=== PATIENT | male | born 1950 | race Caucasian/White ===

== ENCOUNTER → 2019-01-22 08:51 | Outpatient (CLI) | payer MEDICARE, SELFPAY ==
--- NOTE | 2019-01-22 | CI_ITS ---
Cerebrovascular Exam Indications: 785.9 Bruit. IMPRESSIONS 1. Study suggests 20-49% stenosis involving the right internal carotid artery. 2. Study suggests less than 20% stenosis involving the left internal carotid artery. History: A bruit of the right carotid artery. Risk factors: Hypertension. Diabetes mellitus. Hyperlipidemia. Carotid duplex study. Complete study and Doppler flow study including spectral analysis, color and mcconnell scale imaging. Location: Vascular laboratory. Patient status: Outpatient. Tables: Arterial flow: + +--------+--------+ Location V sys V ed + +--------+--------+ Right CCA - proximal 119cm/s 22.8cm/s + +--------+--------+ Right CCA - distal 87.3cm/s 25.8cm/s + +--------+--------+ Right ECA 101cm/s -------- + +--------+--------+ Right ICA - proximal 66cm/s 19.5cm/s + +--------+--------+ Right ICA - mid 101cm/s 35.6cm/s + +--------+--------+ Right ICA - distal 97cm/s 30.6cm/s + +--------+--------+ Right vertebral 72.9cm/s -------- + +--------+--------+ Left CCA - proximal 112cm/s 23cm/s + +--------+--------+ Left CCA - distal 97.8cm/s 25.1cm/s + +--------+--------+ Left ECA 110cm/s -------- + +--------+--------+ Left ICA - proximal 83.6cm/s 21.4cm/s + +--------+--------+ Left ICA - mid 118cm/s 34.6cm/s + +--------+--------+ Left ICA - distal 89.4cm/s 25.8cm/s + +--------+--------+ Left vertebral 59.4cm/s -------- + +--------+--------+ Velocity ratios: + + + + + + Right, V sys Right, V ed Left, V sys Left, V ed + + + + + + Max ICA/dist CCA 1.16 1.38 1.21 1.38 + + + + + + (Report amended ) Electronically signed by: Luis Olivier [id number]
== END ==
PROVIDERS: PCP Family Medicine; Visit Provider Family Medicine
DX: R09.89 Other specified symptoms and signs involving the circulatory and respiratory systems (principal)
CPT/HCPCS: 93880

== ENCOUNTER 2020-06-06 21:17 | Inpatient (IN) | payer MEDICARE, SELFPAY ==
[2020-06-06] VITALS (7 sets, daily range): BP systolic 115–139; BP diastolic 62–82; PULSE 76–94; RESP 16–24; TEMP 37.7–38; O2SAT 83–96; BMI 25.8; BMI 56.9; BMI 27.6
--- NOTE | 2020-06-06 21:23 | XR_ITS ---
PROCEDURE: XR CHEST PORTABLE CLINICAL HISTORY: SOA COMPARISON: No exams were available for comparison FINDINGS: The cardiomediastinal silhouette and pulmonary vascularity are within normal limits. Patchy ground-glass density noted in the right midlung and right lower lobe and left lower lobe consistent with pneumonia. No effusions. No acute bony abnormalities. IMPRESSION: Patchy bilateral ground-glass opacification consistent with pneumonia. Consider atypical pneumonia, viral pneumonia/Covid 19 pneumonia Dictated by: Luis Olivier MD 06/07/2020 07:40 Luis Olivier MD in [place] 06/07/2020 07:40
--- NOTE | 2020-06-06 21:25 | HMH.EDGENADL ---
ED Disposition Clinical Impression: COVID-19 virus IgG antibody detected, OLIVIER (acute kidney injury) Pneumonia Qualifiers: Pneumonia type: due to unspecified organism Laterality: unspecified laterality Lung location: unspecified part of lung Qualified Code(s): J18.9 - Pneumonia, unspecified organism Sepsis Qualifiers: Sepsis type: sepsis due to unspecified organism Sepsis acute organ dysfunction status: with acute organ dysfunction Severe sepsis acute organ dysfunction type: acute renal failure Acute renal failure type: unspecified Severe sepsis shock status: without septic shock Qualified Code(s): A41.9 - Sepsis, unspecified organism; R65.20 - Severe sepsis without septic shock; N17.9 - Acute kidney failure, unspecified Disposition: Admitted As Inpatient Condition on Discharge: Serious Referrals: Julien Taylor MD [Primary Care Provider] - Time of Disposition: 22:56 - Critical Care Critical Care Time: Yes Attestation: On 06/06/20, the high probability of a clinically significant, sudden or life threatening deterioration of the following system(s) required my full and direct attention, intervention and personal management. The time I documented below is in addition to time spent performing reported procedures but includes the following listed in this critical care notation. Total Critical Care Time: 30 Vital system(s) involved:: Respiratory Failure My critical care processes included: Assessment & monitoring of V/S, Initial and Re-exams, Data Review/Interpretation, Medication Orders and management, Documentation Medical Decision Making - Medical Records Medical records reviewed: Yes: I reviewed the patient's medical records. MR Comment: 69 yo Male with a history of insulin-dependent diabetes presents the emergency department stating that he has been weak and has not been eating well over the last 3 days. He denies any symptoms or complaints before this. However, on arrival to the emergency department he is hypoxic on room air with oxygen sats mid 80s. He is mildly tachypneic and appears very comfortable. He is also febrile, otherwise hemodynamically stable. Given his oxygen saturation, pneumonia considered. Will get labs and chest x-ray and reassess. At this time he is on a nonrebreather at 100%, sats are 90-93 on my assessment. On reassessment, patient remains stable. IgG and IgM test for COVID are positive, given his clinical picture and relative low lymphocytes on labs, this is likely coronavirus 19. He also has acute renal failure with high creatinine and BUN, and he denies any history of renal disease. He has been given a bolus of normal saline, ceftriaxone, 10 of IV dexamethasone. Do not want to give him too much fluid, but will start a low rate given his renal injury. Spoke to the physician and he will be admitted to the COVID unit for further evaluation and treatment. - Yevgeniy Inquiry Pt receiving controlled substance: No Vital Signs: 06/06/20 21:23 06/06/20 21:30 06/06/20 22:18 Temperature 100.4 F H Temperature Source Oral Pulse Rate [Right Brachial] 94 H 85 84 Respiratory Rate 16 18 22 Blood Pressure [Right Arm] 134/72 133/82 139/76 Blood Pressure Mean [Right Arm] 92 99 97 Blood Pressure Source [Right Arm] Automatic Cuff Automatic Cuff Automatic Cuff Blood Pressure Position [Right Arm] Supine Supine Supine 02 Sat by Pulse Oximetry 83 L 95 96 Oxygen Delivery Method Room Air Non-Rebreather Non-Rebreather Oxygen Flow Rate (LPM) 15 10 06/06/20 22:30 Temperature Temperature Source Pulse Rate [Right Brachial] 78 Respiratory Rate 24 Blood Pressure [Right Arm] 133/73 Blood Pressure Mean [Right Arm] 93 Blood Pressure Source [Right Arm] Automatic Cuff Blood Pressure Position [Right Arm] Supine 02 Sat by Pulse Oximetry 95 Oxygen Delivery Method Non-Rebreather Oxygen Flow Rate (LPM) 15 - Lab Data Lab Results 06/06/20 21:23: WBC 7.3, RBC 4.35 L, Hgb 12.4 L, Hct 33.8 L, MCV 77.8 L, MCH 28.6, MCHC 3
[2020-06-06 21:34] LABS: Basophils % 0.2 % (0.1-2.0); Hematocrit 33.8 % (42.0-52.0); Hemoglobin 12.4 g/dL (14.1-18.0); Lymphocytes # 0.3 K/mm3 (0.7-4.5); Lymphocytes % 4.7 % (10-50); Mean Corpuscular HGB Conc 36.8 g/dL (31.8-35.4); Mean Corpuscular Hemoglobin 28.6 pg (27.0-31.2); Mean Corpuscular Volume 77.8 fl (80-94); Mean Platelet Volume 7.7 fl (7.4-10.4); Monocytes # 0.2 K/mm3 (0.1-1.0); Monocytes % 3.1 % (1.7-9.3); Neutrophils # 6.7 K/mm3 (1.8-7.8); Neutrophils % 91.9 % (37.0-80.0); Platelet Count 230 K/mm3 (142-424); Red Blood Count 4.35 M/mm3 (4.60-6.20); Red Cell Distribution Width 13.7 % (11.5-17.5); White Blood Count 7.3 K/mm3 (4.8-10.8)
[2020-06-06 21:37] LABS: MANUAL DIFFERENTIAL MANUAL DIFFERENTIAL (MANUAL DIFF)
[2020-06-06 21:37] LABS: ABG HCO3 13.4 mmhg (22.0-26.0); ABG Oxygen Saturation 91 % (90-100); ABG PCO2 21.1 mmhg (35.0-45.0); ABG PH 7.42 mmol/L (7.35-7.45); ABG TCO2 14.1 mmhg (23-27)
[2020-06-06 21:38] LABS: Allen's Test Y; Oxygen 100 %; Source R/R
--- NOTE | 2020-06-06 21:42 | PC.NURSE ---
family report vomiting and diarrhea
[2020-06-06 21:49] LABS: Acetone, Serum (Rapid) None Detected (None Detect)
[2020-06-06 21:50] LABS: Alanine Aminotransferase 20 U/L (12-78); Albumin/Globulin Ratio 1.1 (1.1-1.8); Alkaline Phosphatase 59 U/L (38-126); Anion Gap 20.4 mEq/L (5-15); Aspartate Amino Transferase 51 U/L (17-59); Calcium 8.6 mg/dl (8.4-10.2); Carbon Dioxide 18 mmol/L (22.0-30.0); Chloride 90 mmol/L (98-107); Creatinine Clearance Estimated 19 mL/min (50-200); Estimated Glomerular Filt Rate 19 ml/min (>60); GFR (African American) 23 ML/MIN (>60); Globulin 3.5 g/dL (1.3-3.2); Glucose 126 mg/dl (74-100); Lactic Acid 1.2 mmol/L (0.7-2.1); Potassium 4.4 mmoL/L (3.5-5.1); Sodium 124 mmol/L (136-145); Total Protein,Serum 7.5 g/dl (6.3-8.2)
[2020-06-06 21:59] LABS: Lymphocytes % 3 % (10-50); Microcytosis 1+; Monocytes % 2 % (2-9); Neutrophils % 89 % (42-76); Platelet Estimate Normal; Total Cells Counted 100
[2020-06-06 22:03] LABS: Coronavirus 19 IgG Antibody Positive (Negative)
[2020-06-06 22:04] LABS: Coronavirus 19 IgM Antibody Positive (Negative)
[2020-06-06 22:08] LABS: Blood Urea Nitrogen 87 mg/dl (9-20)
--- NOTE | 2020-06-06 22:18 | ECG_ITS ---
APPROVED REPORT Exam: Resting ECG HR:90 bpm ECG Measurements Heart Rate 90 AXES MD 114 P 26 QRSd 80 QRS 25 QT 342 T 45 QTc 418 <Conclusion> Normal sinus rhythm Normal ECG Electronically signed by : Rhys Ortiz, 06/08/2020 12:35:00
--- NOTE | 2020-06-06 23:12 | PC.NURSE ---
report called to hortensia Olsen
--- NOTE | 2020-06-06 23:19 | PC.NURSE ---
patient up to floor via stretcher.
[2020-06-07] VITALS (34 sets, daily range): BP systolic 94–142; BP diastolic 52–78; PULSE 50–101; RESP 16–24; TEMP 36.1–37.5; O2SAT 88–100; BMI 27.6
[2020-06-07 06:08] LABS: Anion Gap 14.6 mEq/L (5-15); Calcium 8.1 mg/dl (8.4-10.2); Carbon Dioxide 20 mmol/L (22.0-30.0); Chloride 97 mmol/L (98-107); Creatinine Clearance Estimated 32 mL/min (50-200); Estimated Glomerular Filt Rate 28 ml/min (>60); GFR (African American) 34 ML/MIN (>60); Glucose 68 mg/dl (74-100); Potassium 4.6 mmoL/L (3.5-5.1); Sodium 127 mmol/L (136-145)
--- NOTE | 2020-06-07 07:20 | PC.NURSE ---
Pt A&O, resting in bed. Remains on nonrebreather with O2 sats in low to mid 90s. Pt denies any discomfort. Medication administered per nov. F/C draining to bedside. Pt remains in isolation at this time. Report given to Zayda Duron RN., MD rounded at bedside.
[2020-06-07 07:21] LABS: Blood Urea Nitrogen 76 mg/dl (9-20)
[2020-06-07 08:01] LABS: Basophils % 0.2 % (0.1-2.0); Eosinophils % 0.4 % (0.1-12.0); Hematocrit 31.9 % (42.0-52.0); Hemoglobin 11.6 g/dL (14.1-18.0); Lymphocytes # 0.4 K/mm3 (0.7-4.5); Lymphocytes % 6.7 % (10-50); Mean Corpuscular HGB Conc 36.3 g/dL (31.8-35.4); Mean Corpuscular Hemoglobin 29.1 pg (27.0-31.2); Mean Corpuscular Volume 80.2 fl (80-94); Mean Platelet Volume 8.5 fl (7.4-10.4); Monocytes # 0.1 K/mm3 (0.1-1.0); Monocytes % 2.4 % (1.7-9.3); Neutrophils # 5.4 K/mm3 (1.8-7.8); Neutrophils % 90.2 % (37.0-80.0); Platelet Count 209 K/mm3 (142-424); Red Blood Count 3.97 M/mm3 (4.60-6.20); Red Cell Distribution Width 13.5 % (11.5-17.5)
[2020-06-07 08:02] LABS: Chloride 100 mmol/L (98-107); Sodium 128 mmol/L (136-145)
[2020-06-07 08:03] LABS: Potassium 4.8 mmoL/L (3.5-5.1)
--- NOTE | 2020-06-07 08:03 | HMH.HP ---
*Admission Date: 06/06/20 *Chief complaint: Weakness *History of present illness: 69-year-old male with diabetes with peripheral neuropathy presented to the emergency department after being encouraged by family to seek care due to what was perceived as generalized weakness I was laying around too much . Patient reports 2 weeks ago having a stomach virus but his symptoms were simply an abrupt and acute loss of appetite. He denies nausea or vomiting. He is unaware of fevers. He denies cough or shortness of breath. He presented to the emergency department and was found to be hypoxic with room air sats in the low 80s despite being conversant and pleasant. Patient responded to application of supplemental oxygen ultimately requiring nonrebreather to keep sats above 90%. Further evaluation revealed bilateral infiltrates as well as coronavirus antibody positive for both IgM and IgG. Patient also met sepsis criteria and was treated as such with a fluid bolus. He was found to have acute kidney injury with elevation of his creatinine and BUN. Patient was diagnosed with COVID 19 pneumonia with acute kidney injury and sepsis and admitted for further treatment. This morning despite continued use of the nonrebreather which is keeping his O2 sats at 96% patient continues to deny being short of breath. 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) Denies:: Cancer, Diabetes Mellitus Type 1, MRSA *Have you ever received a pneumonia vaccine?: Yes *Have you received a flu vaccine this season?: Yes Amputation: No - *Social History Smoking Status: Never smoker Alcohol Intake: never *Occupational Status:: retired Housing: house Household Members: none *Travel in the last 8 weeks: None Family Hx:: No significant family history Review of Systems - Constitutional Reports anorexia, Denies body ache(s), Denies chills, Denies lack of energy - *Cardiovascular Denies chest pain, Denies chest pain at rest, Denies chest pain with activity - *Respiratory Denies change in phlegm color, Denies chest congestion, Denies cough, Denies shortness of breath - *Gastrointestinal Denies abdominal pain - *Genitourinary Denies difficulty urinating - *Musculoskeletal Reports muscle weakness, Denies abnormal walking - *Neurologic Denies abnormal walking - Psychiatric Denies abnormal sleep pattern, Denies lack of enjoyment, Denies anxiety Meds Home Medications Medication Instructions Recorded Confirmed Type Insulin Aspart Prot/Insuln Asp 20 unit SQ AMLAB 06/06/20 06/06/20 History [Novolog Mix 70/30 Flexpen 100 Units/mL 3mL] Lisinopril/Hydrochlorothiazide 1 tab PO DAILY 06/06/20 06/06/20 History [Lisinopril-Hctz 10-12.5 mg Tab] Metformin HCl [Metformin 1000mg 1,000 mg PO BID 06/06/20 06/06/20 History Tablets] Pravastatin Sodium [Pravachol 20mg 20 mg PO HS 06/06/20 06/06/20 History Tablet] Allergies Allergy/AdvReac Type Severity Reaction Status Date / Time No Known Allergies Allergy Verified 06/06/20 21:23 Exam Vital signs and Labs for Last 24 Hours: Temp Pulse Resp BP Pulse Ox 97.5 F L 63 22 133/61 94 L 06/07/20 05:00 06/07/20 06:00 06/07/20 06:00 06/07/20 06:00 06/07/20 06:00 Laboratory Results - last 24 hr 06/06/20 21:23: WBC 7.3, RBC 4.35 L, Hgb 12.4 L, Hct 33.8 L, MCV 77.8 L, MCH 28.6, MCHC 36.8 H, RDW 13.7, Plt Count 230, MPV 7.7, Neut % (Auto) 91.9 H, Lymph % (Auto) 4.7 L, [place] % (Auto) 3.1, Eos % (Auto) 0.0 L, Baso % (Auto) 0.2, Neut # (Auto) 6.7, Lymph # (Auto) 0.3 L, [place] # (Auto) 0.2, Eos # (Auto) 0.0, Baso # (Auto) 0.0, Total Counted 100, Neutrophils % (Manual) 89 H, Band Neutrophils % 6.0, Lymphocytes % (Manual) 3 L, Monocytes % (Manual) 2, Platelet Estimate Normal, Microcytosis 1+ 06/06/20 21:23: Sodium 124 L, Potassium 4.4, Chloride 90 L, Carbon Dioxide 18 L, Anion Gap 20.4 H, BUN 87
[2020-06-07 08:05] LABS: Alanine Aminotransferase 18 U/L (12-78); Alkaline Phosphatase 54 U/L (38-126); Anion Gap 15.8 mEq/L (5-15); Aspartate Amino Transferase 103 U/L (17-59); Bilirubin,Total 0.8 mg/dl (0.2-1.3); Carbon Dioxide 17 mmol/L (22.0-30.0); Creatinine Clearance Estimated 32 mL/min (50-200); Estimated Glomerular Filt Rate 28 ml/min (>60); GFR (African American) 34 ML/MIN (>60)
[2020-06-07 08:06] LABS: Albumin Level 3.3 g/dl (3.5-5.0); Calcium 8.1 mg/dl (8.4-10.2); Globulin 3.3 g/dL (1.3-3.2); Glucose 65 mg/dl (74-100); Total Protein,Serum 6.6 g/dl (6.3-8.2)
[2020-06-07 08:09] LABS: MANUAL DIFFERENTIAL MANUAL DIFFERENTIAL (MANUAL DIFF)
--- NOTE | 2020-06-07 08:11 | PC.NURSE ---
nate garces rn provided care/documentation with my assistance and supervision
--- NOTE | 2020-06-07 08:52 | PC.NURSE ---
0800 - Dr. Cruz requesting IN-HOUSE Covid test. Test approved her [employer] and lab notified.
[2020-06-07 09:12] LABS: Blood Urea Nitrogen 78 mg/dl (9-20)
[2020-06-07 09:24] LABS: Lymphocytes % 8 % (10-50); Monocytes % 4 % (2-9); Neutrophils % 88 % (42-76); Platelet Estimate Normal; RBC Morphology Normal; Total Cells Counted 100
--- NOTE | 2020-06-07 09:29 | HMH.PHAINT ---
MEDICATION RECONCILIATION COMPLETED ON PATIENT USING EXTERNAL FILL HISTORY FROM PHARMACY. -ZION CHRISTY, CARMEND
--- NOTE | 2020-06-07 09:30 | HMH.PHAVTE ---
[facility] Pharmacy VTE Monitoring - Patient Demographics Admission date: 06/06/20 Report Date: 06/07/20 Time: 09:30 Allergies/Adverse Reactions: Patient Allergies No Known Allergies Allergy (Verified 06/06/20 21:23) Height: 1.68 m Weight: 77.791 kg Patient Problems: Current Active Problems Pneumonia (Acute) COVID-19 virus IgG antibody detected (Acute) OLIVIER (acute kidney injury) (Acute) Sepsis (Acute) COVID-19 virus infection (Acute) Type 2 diabetes mellitus with neurological manifestations, controlled (Acute) Long-term current use of insulin for diabetes mellitus (Acute) - VTE Risk Labs: VTE Related Lab Results Hgb 11.6 g/dL (14.1-18.0) L 06/07/20 05:45 Hct 31.9 % (42.0-52.0) L 06/07/20 05:45 Plt Count 209 K/mm3 (142-424) 06/07/20 05:45 BUN 76 mg/dl (9-20) H 06/07/20 05:45 BUN 78 mg/dl (9-20) H 06/07/20 05:45 Creatinine 2.30 mg/dl (0.66-1.25) H 06/07/20 05:45 Creatinine 2.30 mg/dl (0.66-1.25) H D 06/07/20 05:45 Estimated Creat Clear 32 mL/min (50-200) 06/07/20 05:45 Estimated Creat Clear 32 mL/min (50-200) 06/07/20 05:45 Was VTE Risk Assessment Performed: Yes VTE Score: 1 - Prophylaxis VTE Prophylaxis Ordered?: Yes Types of VTE Prophylaxis: TEDS Knee High, Pharmacological Location of Applied Device: Bilateral Lower Extremeties Pharmacologic Type: Enoxaparin
--- NOTE | 2020-06-07 09:38 | PC.NURSE ---
attempted to place patient on 50% venti, patient tolerated well for a short period but sats dropped less than 90%. md would like sats 90-96% so placed back on nonrebreather.
[2020-06-07 10:17] LABS: POC Glucose,Bedside 83 (70-110)
--- NOTE | 2020-06-07 11:30 | PC.NURSE ---
did relay to dr. grady that patient swab came back positive
--- NOTE | 2020-06-07 13:39 | HMH.PULMCON ---
*Admission Date: 06/06/20 *Reason for consult:: Acute hypoxic respiratory failure. COVID-19 pneumonia. *History of present illness: Mr. Camacho is a 69-year-old male with history of diabetes with peripheral neuropathy was presented to the emergency department with worsening hypoxic respiratory failure. Patient states that for the last 7 days he has been experiencing worsening breathing, loss of appetite along with body aches, he chose not to come to the hospital until yesterday where his family increased to come to the hospital. Presentation the ED he was in acute hypoxic respiratory failure, emergently initiated nonrebreather and sats eventually improved. COVID PCR testing resulted positive on this admission. Patient is a lifelong non-smoker, never used any inhalers and denies any prior symptoms of shortness of breath or exertional dyspnea. He also admits regular follow-up with his primary care physician and was never told that he is having any kidney injury. 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) Denies:: Cancer, Diabetes Mellitus Type 1, MRSA *Have you ever received a pneumonia vaccine?: Yes *Have you received a flu vaccine this season?: Yes Amputation: No - *Social History Smoking Status: Never smoker Alcohol Intake: never *Occupational Status:: retired Housing: house Household Members: none *Travel in the last 8 weeks: None Family Hx:: No significant family history [facility] Pulmonology ROS - Review of Systems Review of systems:: pertinent systems reviewed and negative unless documented below - Constitutional Reports body ache(s), Reports chills, Reports fatigue, Reports fever(s) - *Cardiovascular Reports shortness of breath with activity, Denies chest pain, Denies chest pain at rest, Denies chest pain with activity - *Respiratory Respiratory: Yes shortness of breath, Yes chest congestion, Yes cough, No non-productive cough, Yes excessive phlegm production - *Gastrointestinal Gastrointestingal: Reports: system reviewed and no additional complaints, except as docu - *Musculoskeletal Musculoskeletal: Reports system reviewed and no additional complaints, except as docu - *Neurologic Denies abnormal walking Meds Home Medications Medication Instructions Recorded Confirmed Type Insulin Aspart Prot/Insuln Asp 20 unit SQ DAILY 06/06/20 06/07/20 History [Novolog Mix 70/30 Flexpen 100 Units/mL 3mL] Lisinopril/Hydrochlorothiazide 1 tab PO DAILY 06/06/20 06/06/20 History [Lisinopril-Hctz 10-12.5 mg Tab] Metformin HCl [Metformin 1000mg 1,000 mg PO BID 06/06/20 06/06/20 History Tablets] Pravastatin Sodium [Pravachol 20mg 20 mg PO HS 06/06/20 06/06/20 History Tablet] Gabapentin [Neurontin 600mg 600 mg PO TID 06/07/20 06/07/20 History tablet] Insulin Aspart Prot/Insuln Asp 30 units SQ HS 06/07/20 06/07/20 History [Novolog Mix 70/30 Flexpen 100 Units/mL 3mL] Allergies Allergy/AdvReac Type Severity Reaction Status Date / Time No Known Allergies Allergy Verified 06/06/20 21:23 Exam Vital signs and Labs for Last 24 Hours: Temp Pulse Resp BP Pulse Ox 98.3 F 63 19 138/69 97 06/07/20 11:00 06/07/20 12:00 06/07/20 12:00 06/07/20 12:00 06/07/20 12:00 Laboratory Results - last 24 hr 06/06/20 21:23: WBC 7.3, RBC 4.35 L, Hgb 12.4 L, Hct 33.8 L, MCV 77.8 L, MCH 28.6, MCHC 36.8 H, RDW 13.7, Plt Count 230, MPV 7.7, Neut % (Auto) 91.9 H, Lymph % (Auto) 4.7 L, [place] % (Auto) 3.1, Eos % (Auto) 0.0 L, Baso % (Auto) 0.2, Neut # (Auto) 6.7, Lymph # (Auto) 0.3 L, [place] # (Auto) 0.2, Eos # (Auto) 0.0, Baso # (Auto) 0.0, Total Counted 100, Neutrophils % (Manual) 89 H, Band Neutrophils % 6.0, Lymphocytes % (Manual) 3 L, Monocytes % (Manual) 2, Platelet Estimate Normal, Microcytosis 1+ 06/06/20 21:23: Sodium 124 L, Potassium 4.4, Chloride 90 L, Carbon Dioxide 18 L, Anion Gap 20.4 H, BUN 87 H, Creatinine 3.20 H, Estimated Creat
--- NOTE | 2020-06-07 13:48 | PC.NURSE ---
at this time placed patient on 50% venti.
--- NOTE | 2020-06-07 13:58 | PC.NURSE ---
remdesivir finished and flushed with 30ml ns
--- NOTE | 2020-06-07 14:38 | PC.NURSE ---
o2 sat starting to decrease. maintaining 87-89%. will replace nonrebreather to maintain goal of greater than 90%
--- NOTE | 2020-06-07 15:54 | PC.NURSE ---
PT AO*4 T/O SHIFT ABLE TO ANSWER QUESTIONS AND FOLLOW COMMANDS, HAS BEEN MOVED TO COVID UNIT FOLLOWING POSITIVE RESULTS FROM IN HOUSE NASAL SWAB. HAS HAD POOR APPETITE T/O SHIFT, PT STATES THAT HE IS NOT HUNGRY, HAS BEEN NOTED TO SLEEP AT PERIODS T/O SHIFT. NO C/O PAIN, N/V/D, FC CURRENTLY DRAINING CLEAR YELLOW URINE. ABD IS SOFT AND NON-TENDER, NO BM TODAY, PT DENIES DISCOMFORT, LUNG SOUNDS ARE DIMINISHED WITH EXPIRATORY RHONCI NOTED BILATERALLY ON AUSCULTATION, PT IS CURRENTLY ON NON-REBREATHER MASK FOR O2 SUPPORT, HAVE ATTEMPTED TO WEAN PATIENT *2 THIS SHIFT, PT DID NOT TOLERATE 50% ADILENE WELL AND DE-SATURATED INTO MID 80'S ON PULSE OX. DR RAMIREZ HAS STATED HE WOULD LIKE PT TO REMAIN 90%-96% O2 SAT. PT HAS NOT AMBULATED THIS SHIFT, CURRENTLY DIABETIC DIET BUT HAS NOT WANTED TO EAT THUS FAR. PT IS ACHS FSBS BUT HAS REQUIRED NO COVERAGE, TEDS ARE IN PLACE FOR VTE PROPHYLAXIS, SINUS BRADYCARDIA ON TELEMETRY. CALL SANDERS WITHIN REACH. NO NEEDS AT THIS TIME, WILL CONTINUE TO MONITOR.
--- NOTE | 2020-06-07 17:37 | PC.NURSE ---
Addendum entered by July Duron RN 06/07/20 18:25: edited to add that patient and patient family were educated on remdesivir and its investigational use in the treatment of COVID. they both voiced understanding Original Note: patient has remained on nonrebreather this shift. he has had no complaints, when asked said shortness of breath was occasional. has refused food this shift, and has not drank well. no fevers. remedesivir given. heart rate has been 55-69. sats on nonrebreather have been 94-98%. on 50% venti sats had been about 88-91%, when sats maintained under 90 then was switched back to nonrebreather. has spoken with family and instructed we could talk to his niece that visited. also set up a password of [address]ate [address]. is independently turning in bed with some assistance as requested. lubin draining yellow clear urine with adequate urine output. no signs of distress. will continue to monitor.
--- NOTE | 2020-06-07 20:07 | PC.NURSE ---
He is A&Ox4. He denies a pain, SOA, cough, and nausea. He reports weakness. He is afebrile at this time. Lung sounds are diminished. He requested help turning in bed. His O2 is 96-98% on the non-rebreather. Attempted to wean to a 50% venti-mask and his O2 dropped to 88%. He states it has been a while since his last BM, but he is unsure of the date of his last BM. His bowel sounds are hypoactive. Poor PO intake. He is voiding per f/c. Urine is yellow, clear. NSR on telemetry. He refused a bath tonight. He continues on contact and airborne precautions.
[2020-06-08] VITALS (25 sets, daily range): BP systolic 116–159; BP diastolic 66–85; PULSE 60–100; RESP 16–21; TEMP 36.5–37.8; O2SAT 91–97; BMI 27.6
[2020-06-08 05:44] LABS: Basophils % 0.2 % (0.1-2.0); Eosinophils % 0.2 % (0.1-12.0); Hematocrit 35.5 % (42.0-52.0); Lymphocytes # 0.5 K/mm3 (0.7-4.5); Lymphocytes % 5.7 % (10-50); Mean Corpuscular HGB Conc 36.3 g/dL (31.8-35.4); Mean Corpuscular Hemoglobin 29.3 pg (27.0-31.2); Mean Corpuscular Volume 80.6 fl (80-94); Mean Platelet Volume 7.8 fl (7.4-10.4); Monocytes # 0.5 K/mm3 (0.1-1.0); Monocytes % 5.8 % (1.7-9.3); Neutrophils # 8.3 K/mm3 (1.8-7.8); Neutrophils % 88.2 % (37.0-80.0); Platelet Count 276 K/mm3 (142-424); Red Blood Count 4.41 M/mm3 (4.60-6.20); Red Cell Distribution Width 13.5 % (11.5-17.5); White Blood Count 9.4 K/mm3 (4.8-10.8)
[2020-06-08 05:46] LABS: Chloride 103 mmol/L (98-107); Potassium 5.2 mmoL/L (3.5-5.1); Sodium 131 mmol/L (136-145)
[2020-06-08 05:49] LABS: Anion Gap 13.2 mEq/L (5-15); Blood Urea Nitrogen 50 mg/dl (9-20); Calcium 8.4 mg/dl (8.4-10.2); Carbon Dioxide 20 mmol/L (22.0-30.0); Creatinine Clearance Estimated 54 mL/min (50-200); Estimated Glomerular Filt Rate 50 ml/min (>60); GFR (African American) 60 ML/MIN (>60); Glucose 273 mg/dl (74-100)
[2020-06-08 05:50] LABS: MANUAL DIFFERENTIAL MANUAL DIFFERENTIAL (MANUAL DIFF)
[2020-06-08 05:51] LABS: Hemoglobin 12.9 g/dL (14.1-18.0)
--- NOTE | 2020-06-08 06:11 | PC.NURSE ---
Attempted to wean O2 to a venti-mask a second time and his O2 was 84% on the 50% venti; therefore, he was placed back on the non-rebreather. NSR with occasional PVCs on telemetry. He has turned himself in bed. Have encouraged him to try some jello today as he has refused all PO intake this shift.
--- NOTE | 2020-06-08 06:15 | PC.NURSE ---
Lab aware of need for CRE swab.
[2020-06-08 07:40] LABS: Lymphocytes % 6 % (10-50); Monocytes % 6 % (2-9); Neutrophils % 88 % (42-76); Platelet Estimate Normal; RBC Morphology Normal; Total Cells Counted 100
--- NOTE | 2020-06-08 07:53 | HMH.ACPN2 ---
Internal Medicine - PN: Subj *Date: 06/08/20 *Time: 07:53 Interval history: Patient was stable overnight. He remains on a nonrebreather and any attempt to wean to a Ventimask results and a decrease in O2 sats into the 80s. Despite this patient denies shortness of breath. He denies chest pain. He denies overall myalgias. Patient received his first dose of Remdesivir. He remains on oral dexamethasone. Nursing staff was able to get patient to eat a small amount of food this morning. Patient's blood sugars have been elevated on D5 half-normal saline with potassium Exam Vital signs and Labs for Last 24 Hours: Temp Pulse Resp BP Pulse Ox 97.7 F 77 18 140/71 93 L 06/08/20 06:41 06/08/20 06:41 06/08/20 06:41 06/08/20 06:41 06/08/20 06:41 Laboratory Results - last 24 hr 06/07/20 05:45: WBC 6.0, RBC 3.97 L, Hgb 11.6 L, Hct 31.9 L, MCV 80.2, MCH 29.1, MCHC 36.3 H, RDW 13.5, Plt Count 209, MPV 8.5, Neut % (Auto) 90.2 H, Lymph % (Auto) 6.7 L, [place] % (Auto) 2.4, Eos % (Auto) 0.4, Baso % (Auto) 0.2, Neut # (Auto) 5.4, Lymph # (Auto) 0.4 L, [place] # (Auto) 0.1, Eos # (Auto) 0.0, Baso # (Auto) 0.0, Total Counted 100, Neutrophils % (Manual) 88 H, Lymphocytes % (Manual) 8 L, Monocytes % (Manual) 4, Platelet Estimate Normal, RBC Morphology Normal 06/07/20 05:45: Sodium 128 L, Potassium 4.8, Chloride 100, Carbon Dioxide 17 L, Anion Gap 15.8 H, BUN 78 H, Creatinine 2.30 H, Estimated Creat Clear 32, Estimated GFR 28 L, Est GFR ( Amer) 34 L, Glucose 65 L, Calcium 8.1 L, Total Bilirubin 0.8, AST 103 H D, ALT 18, Alkaline Phosphatase 54, Total Protein 6.6, Albumin 3.3 L D, Globulin 3.3 H, Albumin/Globulin Ratio 1.0 L 06/07/20 06:47: POC Glucose 83 06/08/20 05:20: WBC 9.4 D, RBC 4.41 L, Hgb 12.9 L D, Hct 35.5 L, MCV 80.6, MCH 29.3, MCHC 36.3 H, RDW 13.5, Plt Count 276 D, MPV 7.8, Neut % (Auto) 88.2 H, Lymph % (Auto) 5.7 L, [place] % (Auto) 5.8, Eos % (Auto) 0.2, Baso % (Auto) 0.2, Neut # (Auto) 8.3 H, Lymph # (Auto) 0.5 L, [place] # (Auto) 0.5, Eos # (Auto) 0.0, Baso # (Auto) 0.0, Total Counted 100, Neutrophils % (Manual) 88 H, Lymphocytes % (Manual) 6 L, Monocytes % (Manual) 6, Platelet Estimate Normal, RBC Morphology Normal 06/08/20 05:20: Sodium 131 L, Potassium 5.2 H, Chloride 103, Carbon Dioxide 20 L, Anion Gap 13.2, BUN 50 H D, Creatinine 1.40 H D, Estimated Creat Clear 54, Estimated GFR 50 L, Est GFR ( Amer) 60 D, Glucose 273 H D, Calcium 8.4 I & O for Last 24 hours: Intake & Output 06/05/20 06/06/20 06/07/20 06/08/20 11:59 11:59 11:59 11:59 Intake Total 613 / 661 1478 / 1478 Output Total 1635 / 1685 1405 / 1405 Balance -1022 / -1024 73 / 73 Weight 171 lb 8 oz 172 lb 5 oz Microbiology Reports for the Last 24 Hours: Microbiology 06/06/20 21:23 Blood Blood Culture - Preliminary 06/07/20 08:59 Nasopharyngeal Coronavirus COVID-19 PCR - Final Narrative: Patient is resting comfortably in bed. Nonrebreather is in place. Lung exam reveals improved aeration with less rales today than yesterday. Heart has a regular rate and rhythm. Assessment and Plan (1) COVID-19 virus infection Current visit: Yes Status: Acute Category: Medical Code(s): U07.1 - COVID-19 (2) Pneumonia Current visit: Yes Status: Acute Qualifiers: Pneumonia type: due to unspecified organism Laterality: bilateral Lung location: unspecified part of lung Qualified Code(s): J18.9 - Pneumonia, unspecified organism Category: Medical Code(s): J18.9 - Pneumonia, unspecified organism (3) Type 2 diabetes mellitus with neurological manifestations, controlled Current visit: Yes Status: Acute Category: Medical Code(s): E11.49 - Type 2 diabetes mellitus with other diabetic neurological complication (4) Long-term current use of insulin for diabetes mellitus Current visit: Yes Status: Acute Category: Medical Code(s): Z79.4 - buttermaker continuous churn (current) use of insulin; E11.9 - Type 2 diabetes mellitus without complic
--- NOTE | 2020-06-08 10:47 | PC.NURSE ---
Addendum entered by Amanda Sung RN 06/08/20 11:13: Dr Garcia also states for patient to have an even or negative fluid balance. Original Note: Per Dr Garcia: Switch patient to vapotherm 50L/100% fio2. Respiratory notified, vapotherm set to 40L/100% fio2 due to machine limitations, Edith in Dr Garcia's office notified. She said to wean fio2 to keep O2 saturations 92% or >. Pt's O2 sats currently 96%. He also stated to NOT induce for sputum sample, leave cup at bedside and instruct pt on how to produce sputum.
--- NOTE | 2020-06-08 11:22 | HMH.PULMPN ---
Internal Medicine - PN: Subj *Date: 06/08/20 *Time: 11:22 Interval history: No acute events overnight. Patient was transferred to ICU after his PCR resulted positive for COVID-19 infection Exam Vital signs and Labs for Last 24 Hours: Temp Pulse Resp BP Pulse Ox 98.3 F 84 20 135/72 97 06/08/20 11:00 06/08/20 11:00 06/08/20 11:00 06/08/20 11:00 06/08/20 11:00 Laboratory Results - last 24 hr 06/08/20 05:20: WBC 9.4 D, RBC 4.41 L, Hgb 12.9 L D, Hct 35.5 L, MCV 80.6, MCH 29.3, MCHC 36.3 H, RDW 13.5, Plt Count 276 D, MPV 7.8, Neut % (Auto) 88.2 H, Lymph % (Auto) 5.7 L, [place] % (Auto) 5.8, Eos % (Auto) 0.2, Baso % (Auto) 0.2, Neut # (Auto) 8.3 H, Lymph # (Auto) 0.5 L, [place] # (Auto) 0.5, Eos # (Auto) 0.0, Baso # (Auto) 0.0, Total Counted 100, Neutrophils % (Manual) 88 H, Lymphocytes % (Manual) 6 L, Monocytes % (Manual) 6, Platelet Estimate Normal, RBC Morphology Normal 06/08/20 05:20: Sodium 131 L, Potassium 5.2 H, Chloride 103, Carbon Dioxide 20 L, Anion Gap 13.2, BUN 50 H D, Creatinine 1.40 H D, Estimated Creat Clear 54, Estimated GFR 50 L, Est GFR ( Amer) 60 D, Glucose 273 H D, Calcium 8.4 I & O for Last 24 hours: Intake & Output 06/05/20 06/06/20 06/07/20 06/08/20 23:59 23:59 23:59 23:59 Intake Total 1945 / 1945 904 / 904 Output Total 2590 / 2590 740 / 740 Balance -645 / -645 164 / 164 Weight 171 lb 8 oz 171 lb 15.369 oz 172 lb 5 oz Microbiology Reports for the Last 24 Hours: Microbiology 06/06/20 21:23 Blood Blood Culture - Preliminary 06/07/20 08:59 Nasopharyngeal Coronavirus COVID-19 PCR - Final - Constitutional mild distress Assessment and Plan (1) COVID-19 virus infection Current visit: Yes Status: Acute Category: Medical Code(s): U07.1 - COVID-19 (2) Pneumonia Current visit: Yes Status: Acute Qualifiers: Pneumonia type: due to unspecified organism Laterality: bilateral Lung location: unspecified part of lung Qualified Code(s): J18.9 - Pneumonia, unspecified organism Category: Medical Code(s): J18.9 - Pneumonia, unspecified organism (3) Type 2 diabetes mellitus with neurological manifestations, controlled Current visit: Yes Status: Acute Category: Medical Code(s): E11.49 - Type 2 diabetes mellitus with other diabetic neurological complication (4) Long-term current use of insulin for diabetes mellitus Current visit: Yes Status: Acute Category: Medical Code(s): Z79.4 - assisted (current) use of insulin; E11.9 - Type 2 diabetes mellitus without complications (5) OLIVIER (acute kidney injury) Current visit: Yes Status: Acute Category: Medical Code(s): N17.9 - Acute kidney failure, unspecified (6) Sepsis Current visit: Yes Status: Acute Qualifiers: Sepsis type: sepsis due to unspecified organism Sepsis acute organ dysfunction status: with acute organ dysfunction Severe sepsis acute organ dysfunction type: acute renal failure Acute renal failure type: unspecified Severe sepsis shock status: without septic shock Qualified Code(s): A41.9 - Sepsis, unspecified organism; R65.20 - Severe sepsis without septic shock; N17.9 - Acute kidney failure, unspecified Category: Medical Code(s): A41.9 - Sepsis, unspecified organism - Assessment and plan all Dx Assessment and Plan for all problems:: #Acute hypoxic respiratory failure: #COVID-19 pneumonia: #Bacteremia with gram-positive cocci in clusters (negative for mecA gene) 69-year-old male with history of diabetes and peripheral neuropathy presented to the hospital with worsening respiratory failure and his COVID-19 rapid antibody testing and nasal MRSA PCR resulted positive. Patient denies any recent hospital admissions. Patient also denies any chronic kidney disease. Plan: -Continue Ceftriaxone for a total of 10-14 days for his likely MSSA bacteremia (awaiting final speciation) -Continue Azithromycin to cover community-acquired pneumonia for a total of 5
[2020-06-08 13:16] LABS: Covid-19 Nasal PCR Sendout Lex Positive
--- NOTE | 2020-06-08 13:16 | PC.NURSE ---
Lab called to inform us that his COVID swab is still positive.
[2020-06-08 14:26] LABS: Adenovirus,PCR Not Detected (NotDetected); Bordetella Pertussis Not Detected (NotDetected); Chlamydophila Pneumoniae, PCR Not Detected (NotDetected); Coronavirus 229E Not Detected (NotDetected); Coronavirus NL63 Not Detected (NotDetected); Coronavirus OC43 Not Detected (NotDetected); Coronovirus HKU1,PCR Not Detected (NotDetected); Human Metapneumovirus Not Detected (NotDetected); Influenza A, PCR Not Detected (NotDetected); Influenza AH1, 2009 Not Detected (NotDetected); Influenza AH1, PCR Not Detected (NotDetected); Influenza AH3,PCR Not Detected (NotDetected); Influenza B, PCR Not Detected (NotDetected); Mycoplasma Pneumoniae, PCR Not Detected (NotDetected); Parainfluenza 1, PCR Not Detected (NotDetected); Parainfluenza 2, PCR Not Detected (NotDetected); Parainfluenza 3, PCR Not Detected (NotDetected); Parainfluenza 4, PCR Not Detected (NotDetected); Respiratory Syncytial Virus Not Detected (NotDetected); Rhinovirus/Enterovirus Not Detected (NotDetected)
--- NOTE | 2020-06-08 15:01 | PC.NURSE ---
Per Dr Cruz pt can be transferred to stepdown
--- NOTE | 2020-06-08 15:25 | PC.NURSE ---
Assisted pt to the chair. Pt tolerated fairly well. He didn't have increased SOB and his sat stayed around 92% on vapotherm. Pt is still very weak. He stated he hasn't been up out of bed in a week. Pt is currently eating a banana and resting in the chair. VSS. Will continue to monitor.
[2020-06-08 16:03] LABS: POC Glucose,Bedside 66 (70-110)
--- NOTE | 2020-06-08 16:20 | PC.NURSE ---
A&O x4. Lungs are diminished with some rhonchi. He is currently on vapotherm at 40L/100% fio2. O2 sats are maintaining 92-94%. Bowel sounds are active. Hes had very little PO intake. He requested some bananas to snack on which are at bedside. He was up to the chair for approx 1 hour, he tolerated well. He has been offered a bath several times per Juliana Nguyen RN but pt has declined thus far. He states he feels better. He has a dry hacky cough, no sputum production noted. Specimen cup at bedside in case he is able to produce sputum. He's been NSR on telemetry with occasional PVC's. Glucose mid to upper 200's w/SSI. Alexander to bedside draining clear straw colored urine w/approx 560 mls out as of 1600. No complaints verbalized. Will continue to monitor.
--- NOTE | 2020-06-08 16:54 | PC.NURSE ---
Pt saline locked per Dr Cruz
[2020-06-08 18:04] LABS: POC Glucose,Bedside 298 (70-110)
[2020-06-08 18:04] LABS: POC Glucose,Bedside 119 (70-110)
[2020-06-08 18:04] LABS: POC Glucose,Bedside 232 (70-110)
[2020-06-08 18:04] LABS: POC Glucose,Bedside 265 (70-110)
[2020-06-08 18:04] LABS: POC Glucose,Bedside 265 (70-110)
[2020-06-08 18:04] LABS: POC Glucose,Bedside 244 (70-110)
[2020-06-08 20:29] LABS: POC Glucose,Bedside 137 (70-110)
[2020-06-09] VITALS (16 sets, daily range): BP systolic 105–148; BP diastolic 65–86; PULSE 69–104; RESP 16–23; TEMP 36.7–37.7; O2SAT 91–96; BMI 26.0
--- NOTE | 2020-06-09 05:11 | PC.NURSE ---
shift summary patient has rested well throughout shift. patient respiratory pattern has been normal rate and unlabored. patient o2 sats have sustained 92-94% on 40 l 100% fio2. patient denies feeling soa as well. patient will have brief periods of decrease in oxygenation to 89% each lasting less than 5 minutes then sats will return back to 92-94%. occasional pacs and pvcs noted on telemetry. breath sounds diminished throughout all masters. patient has stated he has not had a bowel movement in two weeks but has also not really eaten much of anything.
[2020-06-09 05:13] LABS: POC Glucose,Bedside 142 (70-110)
--- NOTE | 2020-06-09 07:09 | HMH.ACPN2 ---
Internal Medicine - PN: Subj *Date: 06/09/20 *Time: 07:09 Interval history: Patient remained stable throughout the day and night. He has been transitioned to Vapotherm at 20 L/min with FiO2 of 100%. For the most part he has been maintaining O2 sats in the mid to high 90s. Occasionally he will desaturate to the high 80s. Patient continues to denies shortness of breath while at rest. He did sit in the chair for approximately an hour yesterday. To maintain a negative fluid balance patient's IV fluids were discontinued yesterday evening and he was given Lasix 20 mg IV with excellent response. He has been negative fluid balance for the last 24 hours. His appetite remains poor. Exam Vital signs and Labs for Last 24 Hours: Temp Pulse Resp BP Pulse Ox 98.3 F 76 18 129/73 92 L 06/09/20 03:58 06/09/20 06:00 06/09/20 06:00 06/09/20 06:00 06/09/20 06:00 Laboratory Results - last 24 hr 06/06/20 22:15: COVID-19 PCR Positive 06/06/20 23:45: POC Glucose 66 L 06/07/20 10:52: POC Glucose 119 H 06/07/20 16:47: POC Glucose 244 H 06/07/20 19:43: POC Glucose 265 H 06/08/20 05:13: POC Glucose 265 H 06/08/20 05:20: Total Counted 100, Neutrophils % (Manual) 88 H, Lymphocytes % (Manual) 6 L, Monocytes % (Manual) 6, Platelet Estimate Normal, RBC Morphology Normal 06/08/20 11:28: POC Glucose 298 H 06/08/20 14:22: Chlamy pneumoniae PCR Not detected, Adenovirus (PCR) Not detected, B. pertussis DNA (PCR) Not detected, Coronavirus OC43 (PCR) Not detected, Coronavirus HKU1 (PCR) Not detected, Coronavirus 229E (PCR) Not detected, Coronavirus NL63 (PCR) Not detected, Human Metapneumovir PCR Not detected, Influenza A (H1) PCR Not detected, Influ A (H1N1/09) PCR Not detected, Influenza A (H3) PCR Not detected, Influenza Type A (PCR) Not detected, Influenza Type B (PCR) Not detected, M. pneumoniae (PCR) Not detected, Parainfluenza 1 (PCR) Not detected, Parainfluenza 2 (PCR) Not detected, Parainfluenza 3 (PCR) Not detected, Parainfluenza 4 (PCR) Not detected, RSV (PCR) Not detected, Entero/Rhino (PCR) Not detected 06/08/20 15:59: POC Glucose 232 H 06/08/20 20:21: POC Glucose 137 H 06/09/20 05:04: POC Glucose 142 H I & O for Last 24 hours: Intake & Output 06/06/20 06/07/20 06/08/20 06/09/20 11:59 11:59 11:59 11:59 Intake Total 613 / 661 2236 / 2331 861 / 861 Output Total 1635 / 1685 1645 / 1705 1707 / 1707 Balance -1022 / -1024 591 / 626 -846 / -846 Weight 171 lb 8 oz 172 lb 5 oz 162 lb 3.2 oz Microbiology Reports for the Last 24 Hours: Microbiology 06/06/20 21:23 Blood Blood Culture - Preliminary NO GROWTH AFTER 48 HOURS - Constitutional no acute distress - *Routine Respiratory Exam Comments: Basilar rales this morning but overall lung exam has improved. Rales present in the upper lobes and anteriorly on admission have decreased significantly - *Routine Cardiovascular Exam Present: RRR - *Routine Abdominal Exam Present: soft, normoactive bowel sounds - *Routine Extremities Exam Absent: cyanosis, clubbing, edema Assessment and Plan (1) COVID-19 virus infection Current visit: Yes Status: Acute Category: Medical Code(s): U07.1 - COVID-19 Continue Remdisivir, dexamethasone, Vapotherm. Patient is showing signs of improvement. Continue Lovenox for DVT prophylaxis (2) Pneumonia Current visit: Yes Status: Acute Qualifiers: Pneumonia type: due to unspecified organism Laterality: bilateral Lung location: unspecified part of lung Qualified Code(s): J18.9 - Pneumonia, unspecified organism Category: Medical Code(s): J18.9 - Pneumonia, unspecified organism Pneumonia is likely viral in nature but we will continue coverage for community-acquired pneumonia with Rocephin and azithromycin (3) Type 2 diabetes mellitus with neurological manifestations, controlled Current visit: Yes Status: Acute Category: Medical Code(s): E11.49 - Type 2 diabetes mellitus wi
[2020-06-09 08:17] LABS: Basophils % 0.1 % (0.1-2.0); Eosinophils % 0.2 % (0.1-12.0); Hematocrit 35.3 % (42.0-52.0); Hemoglobin 12.7 g/dL (14.1-18.0); Lymphocytes # 0.7 K/mm3 (0.7-4.5); Lymphocytes % 5.7 % (10-50); Mean Corpuscular HGB Conc 36.1 g/dL (31.8-35.4); Mean Corpuscular Hemoglobin 28.6 pg (27.0-31.2); Mean Corpuscular Volume 79.4 fl (80-94); Mean Platelet Volume 7.5 fl (7.4-10.4); Monocytes # 0.7 K/mm3 (0.1-1.0); Monocytes % 5.4 % (1.7-9.3); Neutrophils # 10.8 K/mm3 (1.8-7.8); Neutrophils % 88.6 % (37.0-80.0); Platelet Count 371 K/mm3 (142-424); Red Blood Count 4.45 M/mm3 (4.60-6.20); Red Cell Distribution Width 13.6 % (11.5-17.5); White Blood Count 12.2 K/mm3 (4.8-10.8)
[2020-06-09 08:21] LABS: MANUAL DIFFERENTIAL MANUAL DIFFERENTIAL (MANUAL DIFF)
[2020-06-09 08:25] LABS: Chloride 105 mmol/L (98-107); Potassium 4.6 mmoL/L (3.5-5.1); Sodium 133 mmol/L (136-145)
[2020-06-09 08:28] LABS: Anion Gap 15.6 mEq/L (5-15); Blood Urea Nitrogen 46 mg/dl (9-20); Calcium 8.4 mg/dl (8.4-10.2); Carbon Dioxide 17 mmol/L (22.0-30.0); Creatinine Clearance Estimated 50 mL/min (50-200); Estimated Glomerular Filt Rate 50 ml/min (>60); GFR (African American) 60 ML/MIN (>60); Glucose 169 mg/dl (74-100)
[2020-06-09 08:35] LABS: Hypochromasia 1+; Lymphocytes % 8 % (10-50); Macrocytosis 1+; Monocytes % 3 % (2-9); Neutrophils % 89 % (42-76); Total Cells Counted 100
[2020-06-09 08:36] LABS: Platelet Estimate Normal
[2020-06-09 12:06] LABS: POC Glucose,Bedside 261 (70-110)
--- NOTE | 2020-06-09 12:53 | HMH.PULMPN ---
Internal Medicine - PN: Subj *Date: 06/09/20 *Time: 12:53 Interval history: No acute events overnight. Exam Vital signs and Labs for Last 24 Hours: Temp Pulse Resp BP Pulse Ox 98.9 F 100 H 20 145/81 H 95 06/09/20 12:00 06/09/20 12:00 06/09/20 12:00 06/09/20 12:00 06/09/20 12:00 Laboratory Results - last 24 hr 06/06/20 22:15: COVID-19 PCR Positive 06/06/20 23:45: POC Glucose 66 L 06/07/20 10:52: POC Glucose 119 H 06/07/20 16:47: POC Glucose 244 H 06/07/20 19:43: POC Glucose 265 H 06/08/20 05:13: POC Glucose 265 H 06/08/20 11:28: POC Glucose 298 H 06/08/20 14:22: Chlamy pneumoniae PCR Not detected, Adenovirus (PCR) Not detected, B. pertussis DNA (PCR) Not detected, Coronavirus OC43 (PCR) Not detected, Coronavirus HKU1 (PCR) Not detected, Coronavirus 229E (PCR) Not detected, Coronavirus NL63 (PCR) Not detected, Human Metapneumovir PCR Not detected, Influenza A (H1) PCR Not detected, Influ A (H1N1/09) PCR Not detected, Influenza A (H3) PCR Not detected, Influenza Type A (PCR) Not detected, Influenza Type B (PCR) Not detected, M. pneumoniae (PCR) Not detected, Parainfluenza 1 (PCR) Not detected, Parainfluenza 2 (PCR) Not detected, Parainfluenza 3 (PCR) Not detected, Parainfluenza 4 (PCR) Not detected, RSV (PCR) Not detected, Entero/Rhino (PCR) Not detected 06/08/20 15:59: POC Glucose 232 H 06/08/20 20:21: POC Glucose 137 H 06/09/20 05:04: POC Glucose 142 H 06/09/20 07:42: WBC 12.2 H D, RBC 4.45 L, Hgb 12.7 L, Hct 35.3 L, MCV 79.4 L, MCH 28.6, MCHC 36.1 H, RDW 13.6, Plt Count 371 D, MPV 7.5, Neut % (Auto) 88.6 H, Lymph % (Auto) 5.7 L, [place] % (Auto) 5.4, Eos % (Auto) 0.2, Baso % (Auto) 0.1, Neut # (Auto) 10.8 H, Lymph # (Auto) 0.7, [place] # (Auto) 0.7, Eos # (Auto) 0.0, Baso # (Auto) 0.0, Total Counted 100, Neutrophils % (Manual) 89 H, Lymphocytes % (Manual) 8 L, Monocytes % (Manual) 3, Platelet Estimate Normal, Hypochromasia 1+, Macrocytosis 1+ 06/09/20 07:42: Sodium 133 L, Potassium 4.6, Chloride 105, Carbon Dioxide 17 L, Anion Gap 15.6 H, BUN 46 H, Creatinine 1.40 H, Estimated Creat Clear 50, Estimated GFR 50 L, Est GFR ( Amer) 60, Glucose 169 H, Calcium 8.4 06/09/20 11:54: POC Glucose 261 H I & O for Last 24 hours: Intake & Output 06/06/20 06/07/20 06/08/20 06/09/20 23:59 23:59 23:59 23:59 Intake Total 1945 / 1945 1765 / 1765 180 / 180 Output Total 2590 / 2590 2127 / 2187 270 / 270 Balance -645 / -645 -362 / -422 -90 / -90 Weight 171 lb 8 oz 171 lb 15.369 oz 172 lb 5 oz 162 lb 3.2 oz Microbiology Reports for the Last 24 Hours: Microbiology 06/06/20 21:23 Blood Blood Culture - Preliminary Gram Positive Cocci 06/06/20 21:23 Blood Blood Culture - Preliminary NO GROWTH AFTER 48 HOURS - *Routine HEENT Exam Head: Present: normocephalic, atraumatic - *Routine Neck Exam Present: supple, full ROM. Absent: JVD, carotid bruit, lymphadenopathy, thyromegaly - *Routine Respiratory Exam Present: respiratory distress, crackles - *Routine Cardiovascular Exam Present: Normal S1, Normal S2 - *Routine Abdominal Exam Present: soft, normoactive bowel sounds. Absent: tenderness, distended, rebound, guarding - *Routine Extremities Exam Absent: cyanosis, clubbing, edema Assessment and Plan (1) COVID-19 virus infection Current visit: Yes Status: Acute Category: Medical Code(s): U07.1 - COVID-19 (2) Pneumonia Current visit: Yes Status: Acute Qualifiers: Pneumonia type: due to unspecified organism Laterality: bilateral Lung location: unspecified part of lung Qualified Code(s): J18.9 - Pneumonia, unspecified organism Category: Medical Code(s): J18.9 - Pneumonia, unspecified organism (3) Type 2 diabetes mellitus with neurological manifestations, controlled Current visit: Yes Status: Acute Category: Medical Code(s): E11.49 - Type 2 diabetes mellitus with other diabetic neurological complication (4) Long-term c
[2020-06-09 16:07] LABS: POC Glucose,Bedside 245 (70-110)
--- NOTE | 2020-06-09 16:14 | PC.NURSE ---
Pt has rested at intervals this shift. Was assisted up to chair for 2 hours. Pt is weak and at last transfer required assistance of 2 staff members. Pt denies being SOA and overall says that he feels good . Remains on Vapotherm @ 100% on 40 LPM, tolerating well, sat ranging 91-93 majority of day. Pt does have periods in which he desats and typically takes around 5 minutes to recover. Pt does have an occasional dry non-productive croupy cough. Speci cup remains at bedside for sputum collection, pt is aware. IS at bedside. This nurse educated pt on correct use, reinforcement and encouragement will be needed throughout staff but pt did verbalize understanding. IS @ best = 500. Oral care performed by staff on pt multiple times this shift, oral cavity noted to be dry. Pt has had poor intake this shift, only eating a small amount of his breakfast try this AM. PO intake has been encouraged frequently. Staff have offered to get pt what he would like but he states he just isn't hungry . Cathernie arriaga DC'd this AM per MD orders. Pt has voided w/o difficulty since removal. No BM this shift. Teds and socks removed for full skin assessment, no edema noted. Teds and non-skids replaced BLE. Pt is able to turn and reposition himself independently. Temp of 99.8 orally noted @ 1600 rounds, will recheck. No needs voiced at this time. Call quan w/in reach. Will continue to monitor.
[2020-06-09 20:29] LABS: POC Glucose,Bedside 214 (70-110)
--- NOTE | 2020-06-09 21:19 | PC.NURSE ---
patient desats to 77% within seconds on r/a.
[2020-06-10] VITALS (16 sets, daily range): BP systolic 115–150; BP diastolic 57–93; PULSE 58–106; RESP 17–22; TEMP 36.6–37.4; O2SAT 91–96; BMI 25.2
--- NOTE | 2020-06-10 02:42 | PC.NURSE ---
Voided 200 ml per urinal. Repositioned patient to left side.
[2020-06-10 05:42] LABS: POC Glucose,Bedside 197 (70-110)
[2020-06-10 06:16] LABS: Basophils % 0.3 % (0.1-2.0); Eosinophils % 0.1 % (0.1-12.0); Hematocrit 33.3 % (42.0-52.0); Hemoglobin 11.7 g/dL (14.1-18.0); Lymphocytes # 0.6 K/mm3 (0.7-4.5); Lymphocytes % 5.1 % (10-50); Mean Corpuscular HGB Conc 35.2 g/dL (31.8-35.4); Mean Corpuscular Hemoglobin 28.2 pg (27.0-31.2); Mean Corpuscular Volume 80.2 fl (80-94); Mean Platelet Volume 8.6 fl (7.4-10.4); Monocytes # 0.7 K/mm3 (0.1-1.0); Monocytes % 6.1 % (1.7-9.3); Neutrophils # 9.5 K/mm3 (1.8-7.8); Neutrophils % 88.4 % (37.0-80.0); Platelet Count 315 K/mm3 (142-424); Red Blood Count 4.16 M/mm3 (4.60-6.20); Red Cell Distribution Width 13.6 % (11.5-17.5); White Blood Count 10.8 K/mm3 (4.8-10.8)
[2020-06-10 06:18] LABS: Chloride 107 mmol/L (98-107); Potassium 4.8 mmoL/L (3.5-5.1); Sodium 134 mmol/L (136-145)
[2020-06-10 06:21] LABS: Blood Urea Nitrogen 51 mg/dl (9-20); Creatinine Clearance Estimated 53 mL/min (50-200); Estimated Glomerular Filt Rate 54 ml/min (>60); GFR (African American) 66 ML/MIN (>60)
[2020-06-10 06:22] LABS: Anion Gap 12.8 mEq/L (5-15); Calcium 8.3 mg/dl (8.4-10.2); Carbon Dioxide 19 mmol/L (22.0-30.0); Glucose 190 mg/dl (74-100)
--- NOTE | 2020-06-10 06:22 | PC.NURSE ---
patient has had restful shift, has had fewer episodes of oxygen desaturations than previous night. o2 sats maintained 93-96 percent throughout majority of shift. remains on vapotherm 40 l 100% fio2. breaths sounds diminished throughout. respiratory rate 16-20 and unlabored. voids per urinal. continues to have poor oral intake
[2020-06-10 06:31] LABS: MANUAL DIFFERENTIAL MANUAL DIFFERENTIAL (MANUAL DIFF)
--- NOTE | 2020-06-10 06:47 | HMH.ACPN2 ---
Internal Medicine - PN: Subj *Date: 06/10/20 *Time: 06:47 Interval history: Patient has no new complaints this morning. His appetite remains poor. Patient's O2 sat have remained in the 90s most of the last 24 hours with significant portion of that time sats being between 94 and 96%. Patient will have brief desaturations to 88. Patient removed his oxygen accidentally overnight with desaturations down into the high 70s. Alexander catheter was removed yesterday and patient has had no complications from that. He has yet to have a bowel movement Exam Vital signs and Labs for Last 24 Hours: Temp Pulse Resp BP Pulse Ox 98 F 69 20 130/73 93 L 06/10/20 01:00 06/10/20 06:00 06/10/20 06:00 06/10/20 06:00 06/10/20 06:00 Laboratory Results - last 24 hr 06/09/20 07:42: WBC 12.2 H D, RBC 4.45 L, Hgb 12.7 L, Hct 35.3 L, MCV 79.4 L, MCH 28.6, MCHC 36.1 H, RDW 13.6, Plt Count 371 D, MPV 7.5, Neut % (Auto) 88.6 H, Lymph % (Auto) 5.7 L, [place] % (Auto) 5.4, Eos % (Auto) 0.2, Baso % (Auto) 0.1, Neut # (Auto) 10.8 H, Lymph # (Auto) 0.7, [place] # (Auto) 0.7, Eos # (Auto) 0.0, Baso # (Auto) 0.0, Total Counted 100, Neutrophils % (Manual) 89 H, Lymphocytes % (Manual) 8 L, Monocytes % (Manual) 3, Platelet Estimate Normal, Hypochromasia 1+, Macrocytosis 1+ 06/09/20 07:42: Sodium 133 L, Potassium 4.6, Chloride 105, Carbon Dioxide 17 L, Anion Gap 15.6 H, BUN 46 H, Creatinine 1.40 H, Estimated Creat Clear 50, Estimated GFR 50 L, Est GFR ( Amer) 60, Glucose 169 H, Calcium 8.4 06/09/20 11:54: POC Glucose 261 H 06/09/20 15:59: POC Glucose 245 H 06/09/20 20:12: POC Glucose 214 H 06/10/20 05:30: WBC 10.8, RBC 4.16 L, Hgb 11.7 L, Hct 33.3 L, MCV 80.2, MCH 28.2, MCHC 35.2, RDW 13.6, Plt Count 315, MPV 8.6, Neut % (Auto) 88.4 H, Lymph % (Auto) 5.1 L, [place] % (Auto) 6.1, Eos % (Auto) 0.1, Baso % (Auto) 0.3, Neut # (Auto) 9.5 H, Lymph # (Auto) 0.6 L, [place] # (Auto) 0.7, Eos # (Auto) 0.0, Baso # (Auto) 0.0 06/10/20 05:30: Sodium 134 L, Potassium 4.8, Chloride 107, Carbon Dioxide 19 L, Anion Gap 12.8, BUN 51 H, Creatinine 1.30 H, Estimated Creat Clear 53, Estimated GFR 54 L, Est GFR ( Amer) 66, Glucose 190 H, Calcium 8.3 L 06/10/20 05:31: POC Glucose 197 H I & O for Last 24 hours: Intake & Output 06/07/20 06/08/20 06/09/20 06/10/20 11:59 11:59 11:59 11:59 Intake Total 613 / 661 2236 / 2331 1041 / 1041 490 / 490 Output Total 1635 / 1685 1645 / 1705 1857 / 1857 650 / 650 Balance -1022 / -1024 591 / 626 -816 / -816 -160 / -160 Weight 171 lb 8 oz 172 lb 5 oz 162 lb 3.2 oz 157 lb 6.561 oz Microbiology Reports for the Last 24 Hours: Microbiology 06/06/20 21:23 Blood Blood Culture - Preliminary Staphylococcus capitis 06/08/20 06:22 Anus CRE Surveillance Culture - Final - Constitutional no acute distress - *Routine Cardiovascular Exam Present: RRR Comments: Patient has some posterior rhonchi and rales in the left base. Diminished breath sounds posteriorly. Anteriorly lungs are clear - *Routine Abdominal Exam Present: soft, normoactive bowel sounds. Absent: tenderness - *Routine Extremities Exam Absent: edema Assessment and Plan (1) COVID-19 virus infection Current visit: Yes Status: Acute Category: Medical Code(s): U07.1 - COVID-19 (2) Pneumonia Current visit: Yes Status: Acute Qualifiers: Pneumonia type: due to unspecified organism Laterality: bilateral Lung location: unspecified part of lung Qualified Code(s): J18.9 - Pneumonia, unspecified organism Category: Medical Code(s): J18.9 - Pneumonia, unspecified organism (3) Type 2 diabetes mellitus with neurological manifestations, controlled Current visit: Yes Status: Acute Category: Medical Code(s): E11.49 - Type 2 diabetes mellitus with other diabetic neurological complication (4) Long-term current use of insulin for diabetes mellitus Current visit: Yes Status: Acute Category: Medical Code(s): Z79
[2020-06-10 07:21] LABS: Lymphocytes % 3 % (10-50); Monocytes % 7 % (2-9); Neutrophils % 90 % (42-76); Platelet Estimate Normal; Total Cells Counted 100
[2020-06-10 07:22] LABS: RBC Morphology Normal
--- NOTE | 2020-06-10 09:45 | HMH.ACPN ---
Internal Medicine - PN: Subj *Date: 06/10/20 *Time: 09:45 Exam Vital signs and Labs for Last 24 Hours: Temp Pulse Resp BP Pulse Ox 98.7 F 76 22 115/69 93 L 06/10/20 08:00 06/10/20 08:00 06/10/20 08:00 06/10/20 08:00 06/10/20 08:00 Laboratory Results - last 24 hr 06/09/20 11:54: POC Glucose 261 H 06/09/20 15:59: POC Glucose 245 H 06/09/20 20:12: POC Glucose 214 H 06/10/20 05:30: WBC 10.8, RBC 4.16 L, Hgb 11.7 L, Hct 33.3 L, MCV 80.2, MCH 28.2, MCHC 35.2, RDW 13.6, Plt Count 315, MPV 8.6, Neut % (Auto) 88.4 H, Lymph % (Auto) 5.1 L, [place] % (Auto) 6.1, Eos % (Auto) 0.1, Baso % (Auto) 0.3, Neut # (Auto) 9.5 H, Lymph # (Auto) 0.6 L, [place] # (Auto) 0.7, Eos # (Auto) 0.0, Baso # (Auto) 0.0, Total Counted 100, Neutrophils % (Manual) 90 H, Lymphocytes % (Manual) 3 L, Monocytes % (Manual) 7, Platelet Estimate Normal, RBC Morphology Normal 06/10/20 05:30: Sodium 134 L, Potassium 4.8, Chloride 107, Carbon Dioxide 19 L, Anion Gap 12.8, BUN 51 H, Creatinine 1.30 H, Estimated Creat Clear 53, Estimated GFR 54 L, Est GFR ( Amer) 66, Glucose 190 H, Calcium 8.3 L 06/10/20 05:31: POC Glucose 197 H I & O for Last 24 hours: Intake & Output 06/07/20 06/08/20 06/09/20 06/10/20 23:59 23:59 23:59 23:59 Intake Total 1945 / 1945 1765 / 1765 670 / 670 0 / 0 Output Total 2590 / 2590 2127 / 2187 720 / 770 350 / 350 Balance -645 / -645 -362 / -422 -50 / -100 -350 / -350 Weight 78 kg 78.16 kg 73.573 kg 71.4 kg Microbiology Reports for the Last 24 Hours: Microbiology 06/06/20 21:23 Blood Blood Culture - Preliminary Staphylococcus capitis 06/08/20 06:22 Anus CRE Surveillance Culture - Final Assessment and Plan (1) COVID-19 virus infection Current visit: Yes Status: Acute Category: Medical Code(s): U07.1 - COVID-19 (2) Pneumonia Current visit: Yes Status: Acute Qualifiers: Pneumonia type: due to unspecified organism Laterality: bilateral Lung location: unspecified part of lung Qualified Code(s): J18.9 - Pneumonia, unspecified organism Category: Medical Code(s): J18.9 - Pneumonia, unspecified organism (3) Type 2 diabetes mellitus with neurological manifestations, controlled Current visit: Yes Status: Acute Category: Medical Code(s): E11.49 - Type 2 diabetes mellitus with other diabetic neurological complication (4) Long-term current use of insulin for diabetes mellitus Current visit: Yes Status: Acute Category: Medical Code(s): Z79.4 - meterman (current) use of insulin; E11.9 - Type 2 diabetes mellitus without complications (5) OLIVIER (acute kidney injury) Current visit: Yes Status: Resolved Category: Medical Code(s): N17.9 - Acute kidney failure, unspecified (6) Sepsis Current visit: Yes Status: Resolved Qualifiers: Sepsis type: sepsis due to unspecified organism Sepsis acute organ dysfunction status: with acute organ dysfunction Severe sepsis acute organ dysfunction type: acute renal failure Acute renal failure type: unspecified Severe sepsis shock status: without septic shock Qualified Code(s): A41.9 - Sepsis, unspecified organism; R65.20 - Severe sepsis without septic shock; N17.9 - Acute kidney failure, unspecified Category: Medical Code(s): A41.9 - Sepsis, unspecified organism (7) Gram-positive bacteremia Current visit: Yes Status: Acute Category: Medical Code(s): R78.81 - Bacteremia (8) Essential hypertension Current visit: Yes Status: Acute Category: Medical Code(s): I10 - Essential (primary) hypertension The patient's infection will respond to the chosen ABx?: Yes Is the patient receiving the right drug, dose, and route?: Yes Could a more targeted ABx be ordered?: No
--- NOTE | 2020-06-10 09:57 | PC.NURSE ---
NOTIFIED MD RAMIREZ OF PT HEART RHYTHM GOING BACK AND FORTH FROM TRIGEMINY AND SINUS RHYTHM, AND PT O2 SATS AT 89-90% AFTER BEING REPOSTIONED IN BED FOR ABUOT 30 MINS NOW WITH OCCASIONALLY INCREASING TO 91%. NEW ORDER TO HAVE LAB RUN A MAG LEVEL FROM THIS AM BLOOD WORK. WILL CONT. TO MONITOR.
[2020-06-10 10:08] LABS: Magnesium 2.3 mg/dl (1.6-2.3)
[2020-06-10 11:18] LABS: POC Glucose,Bedside 180 (70-110)
--- NOTE | 2020-06-10 13:32 | PC.NURSE ---
Addendum entered by Shanna Del Cid RN 06/10/20 17:48: PT SAT IN CHAIR FOR ROUGHLY AN HOUR TODAY. HE DID WELL WALKING TO AND FROM THE CHAIR WITH ONE STAFF MEMBER, BUT STATED HE WAS TOO TIRED TO SIT UP ANY LONGER. STAFF ENCOURAGED PT TO LAY ON HIS STOMACH, HE WOULD LAY ON HIS SIDES. PT HAD A MEDIUM BM THIS SHIFT. HE DRANK ANOTHER ENSURE. HIS VAPOTHERM SETTING REMAINS AT 40L 100% FIO2. SATS 92-94% AT TIMES 96%. BRIEF DESATS TO 88%. PT DID ACCIDENTALLY TAKE VAPOTHERM OFF AND HIS O2 DROPPED TO 78% QUICKLY. VSS. WILL CONT. TO MONITOR. Original Note: since previous note, pt has maintained o2 sat 91-95% pt did drink a cup of water, and a whole strawberry ensure. pt states he does not feel like getting out of bed just yet but states he will for supper. pt turned and repositions himself in the bed.
--- NOTE | 2020-06-10 13:37 | HMH.PULMPN ---
Internal Medicine - PN: Subj *Date: 06/10/20 *Time: 13:37 Interval history: No acute events overnight. Patient intermittently slept on his belly but mostly slept to his side. Order intake slightly better but not to the goal Exam Vital signs and Labs for Last 24 Hours: Temp Pulse Resp BP Pulse Ox 99.4 F 88 19 129/69 95 06/10/20 12:00 06/10/20 12:36 06/10/20 12:00 06/10/20 12:00 06/10/20 12:36 Laboratory Results - last 24 hr 06/09/20 15:59: POC Glucose 245 H 06/09/20 20:12: POC Glucose 214 H 06/10/20 05:30: WBC 10.8, RBC 4.16 L, Hgb 11.7 L, Hct 33.3 L, MCV 80.2, MCH 28.2, MCHC 35.2, RDW 13.6, Plt Count 315, MPV 8.6, Neut % (Auto) 88.4 H, Lymph % (Auto) 5.1 L, [place] % (Auto) 6.1, Eos % (Auto) 0.1, Baso % (Auto) 0.3, Neut # (Auto) 9.5 H, Lymph # (Auto) 0.6 L, [place] # (Auto) 0.7, Eos # (Auto) 0.0, Baso # (Auto) 0.0, Total Counted 100, Neutrophils % (Manual) 90 H, Lymphocytes % (Manual) 3 L, Monocytes % (Manual) 7, Platelet Estimate Normal, RBC Morphology Normal 06/10/20 05:30: Sodium 134 L, Potassium 4.8, Chloride 107, Carbon Dioxide 19 L, Anion Gap 12.8, BUN 51 H, Creatinine 1.30 H, Estimated Creat Clear 53, Estimated GFR 54 L, Est GFR ( Amer) 66, Glucose 190 H, Calcium 8.3 L 06/10/20 05:30: Magnesium 2.3 06/10/20 05:31: POC Glucose 197 H 06/10/20 11:10: POC Glucose 180 H I & O for Last 24 hours: Intake & Output 06/07/20 06/08/20 06/09/20 06/10/20 23:59 23:59 23:59 23:59 Intake Total 1944 / 194 1765 / 1765 670 / 670 312 / 312 Output Total 2590 / 2590 2127 / 2187 720 / 770 600 / 600 Balance -645 / -645 -362 / -422 -50 / -100 -288 / -288 Weight 171 lb 15.369 oz 172 lb 5 oz 162 lb 3.2 oz 157 lb 6.561 oz Microbiology Reports for the Last 24 Hours: Microbiology 06/06/20 21:23 Blood Blood Culture - Preliminary Staphylococcus capitis 06/08/20 06:22 Anus CRE Surveillance Culture - Final - Constitutional mild distress Assessment and Plan (1) COVID-19 virus infection Current visit: Yes Status: Acute Category: Medical Code(s): U07.1 - COVID-19 (2) Pneumonia Current visit: Yes Status: Acute Qualifiers: Pneumonia type: due to unspecified organism Laterality: bilateral Lung location: unspecified part of lung Qualified Code(s): J18.9 - Pneumonia, unspecified organism Category: Medical Code(s): J18.9 - Pneumonia, unspecified organism (3) Type 2 diabetes mellitus with neurological manifestations, controlled Current visit: Yes Status: Acute Category: Medical Code(s): E11.49 - Type 2 diabetes mellitus with other diabetic neurological complication (4) Long-term current use of insulin for diabetes mellitus Current visit: Yes Status: Acute Category: Medical Code(s): Z79.4 - customer field representative (current) use of insulin; E11.9 - Type 2 diabetes mellitus without complications (5) OLIVIER (acute kidney injury) Current visit: Yes Status: Resolved Category: Medical Code(s): N17.9 - Acute kidney failure, unspecified (6) Sepsis Current visit: Yes Status: Resolved Qualifiers: Sepsis type: sepsis due to unspecified organism Sepsis acute organ dysfunction status: with acute organ dysfunction Severe sepsis acute organ dysfunction type: acute renal failure Acute renal failure type: unspecified Severe sepsis shock status: without septic shock Qualified Code(s): A41.9 - Sepsis, unspecified organism; R65.20 - Severe sepsis without septic shock; N17.9 - Acute kidney failure, unspecified Category: Medical Code(s): A41.9 - Sepsis, unspecified organism (7) Gram-positive bacteremia Current visit: Yes Status: Acute Category: Medical Code(s): R78.81 - Bacteremia (8) Essential hypertension Current visit: Yes Status: Acute Category: Medical Code(s): I10 - Essential (primary) hypertension - Assessment and plan all Dx Assessment and Plan for all problems:: #Acute hypoxic respiratory failure: #COVID-19 pneumoni
[2020-06-10 17:17] LABS: POC Glucose,Bedside 394 (70-110)
--- NOTE | 2020-06-10 18:49 | PC.NURSE ---
PT CURRENTLY NRS WITH OCCASIONAL PVC'S ON TELE. PT HAS WENT IN AND OUT OF BIGEMINY WITH PVC'S THROUGHOUT SHIFT. O2 SAT 95% PT LAYING ON RIGHT SIDE SLEEPING.
[2020-06-11] VITALS (19 sets, daily range): BP systolic 113–155; BP diastolic 54–90; PULSE 70–118; RESP 16–30; TEMP 36.2–38.4; O2SAT 90–98; BMI 25.8
--- NOTE | 2020-06-11 02:34 | PC.NURSE ---
A&OX3. 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 LUNGS NOTED CLEAR PER AUSCULTATION. REMAINED ON VAPOTHERM THIS SHIFT. PT'S O2SAT NOTED >90% WHILE LYING ON RIGHT SIDE. O2SAT NOTED IN 80'S WITH EXERTION,LYING FLAT/SUPINE OR SITTING UP. PT DID ATTEMPT TO LAY IN THE PRONE POSITION THIS SHIFT BUT DID NOT TOLERATE WELL. PT STATED I JUST FEEL LIKE I CAN'T GET A GOOD BREATH IN LIKE THIS. I CAN'T LAY LIKE THIS. O2SAT WAS NOTED 87% WHILE LYING IN THE PRONE POSITION. PT REPOSITIONED INDEPENDENTLY ONTO THE RIGHT SIDE. PT USED INCENTIVE SPIROMETER Q1HWA THIS SHIFT, RETURN DEMONSTRATION WAS WITNESSED PER STAFF. PT WOULD REACH 750 ML- 1000 ML WHILE USING INCENTIVE SPIROMETER, GOAL IS SET AT 1000 ML. PT REMOVED THE VAPOTHERM THIS SHIFT AND O2SAT DECREASED RAPIDLY TO 77%. REAPPLIED VAPOTHERM, O2SAT IMPROVED TO 93%. NONPRODUCTIVE, DRY COUGH NOTED THIS SHIFT. PULSES +2, CAP REFILL < 3 SEC. NSR, TRIGEMINY/ FREQUENT PVC'S NOTED PER SPECIAL EVENTS MANAGER. ABDOMEN NONDISTENDED, ACTIVE BOWEL SOUNDS, SOFT AND NONTENDER PER PALPATION. SMALL LIQUID, BROWN STOOL NOTED THIS SHIFT. ENCOURAGED PT TO GET OOB AND TRANSFER TO [facility] FOR BM. PT REFUSED AND STATED I AM JUST TOO WEAK AND I NEED TO GO NOW. ASSISTED WITH BEDPAN. VOIDED PER URINAL, URINE YELLOW AND CLEAR. ENCOURAGED BATH AND ORAL CARE THIS SHIFT, PT REFUSED. VSS. WILL CONTINUE TO MONITOR.
--- NOTE | 2020-06-11 03:24 | PC.NURSE ---
Addendum entered by Yanely Suresh RN 06/11/20 03:26: * INCREASED TO 92% WHILE ON VAPOTHERM. Original Note: WHILE TURNED ON LEFT SIDE AND SLEEPING PT'S O2SAT DECREASED TO 84% WHILE ON VAPOTHERM, HAD PT TURN TO RIGHT SIDE AND PT'S O2SAT INCREASED TO 92%
--- NOTE | 2020-06-11 03:28 | PC.NURSE ---
WHEN PT WAS NOTED AWAKE THIS SHIFT, OFFERED/ENCOURAGED DRINKING WATER. PT WOULD DRINK A COUPLE OF DRINKS OF WATER T/O SHIFT PERIODICALLY WHEN AWAKE. PT REFUSED A SNACK AT BEGINNING OF SHIFT.
--- NOTE | 2020-06-11 04:30 | PC.NURSE ---
PT MISSED THE URINAL ON ATTEMPT TO VOID. UNMEASURED URINE AT THIS TIME. ASSISTED PT WITH CHANGING CHUX AND CLEANING GEO AREA.
--- NOTE | 2020-06-11 05:32 | PC.NURSE ---
PT AGREED TO ORAL CARE AT THIS TIME. PT ALLOWED STAFF TO SWAB MOUTH OUT WITH ORAL CARE CLEANING SOLUTION. PT REFUSED USE OF LIP MOISTURIZER, DRY/ CRUSTY BUILDUP WAS NOTED AT CORNER OF LIPS. ONCE MOUTH SWABBED, IT WAS REMOVED AND APPEARANCE OF LIPS WAS NOT DRY BUT STILL ENCOURAGED USE OF THE LIP MOISTURIZER, PT STATED NO. I JUST DO NOT WANT IT. ALSO PROVIDED PT WITH DRINK OF WATER AT THIS TIME.
[2020-06-11 05:49] LABS: Basophils % 0.1 % (0.1-2.0); Eosinophils % 0.3 % (0.1-12.0); Hemoglobin 12.7 g/dL (14.1-18.0); Lymphocytes # 0.5 K/mm3 (0.7-4.5); Lymphocytes % 3.7 % (10-50); Mean Corpuscular HGB Conc 35.4 g/dL (31.8-35.4); Mean Corpuscular Hemoglobin 28.7 pg (27.0-31.2); Mean Corpuscular Volume 80.9 fl (80-94); Mean Platelet Volume 8.3 fl (7.4-10.4); Monocytes # 0.7 K/mm3 (0.1-1.0); Monocytes % 4.6 % (1.7-9.3); Neutrophils # 13.5 K/mm3 (1.8-7.8); Neutrophils % 91.4 % (37.0-80.0); Platelet Count 384 K/mm3 (142-424); Red Blood Count 4.45 M/mm3 (4.60-6.20); Red Cell Distribution Width 13.8 % (11.5-17.5); White Blood Count 14.8 K/mm3 (4.8-10.8)
[2020-06-11 05:50] LABS: Chloride 106 mmol/L (98-107)
[2020-06-11 05:51] LABS: Potassium 4.7 mmoL/L (3.5-5.1); Sodium 137 mmol/L (136-145)
[2020-06-11 05:54] LABS: Anion Gap 14.7 mEq/L (5-15); Blood Urea Nitrogen 52 mg/dl (9-20); Calcium 8.5 mg/dl (8.4-10.2); Carbon Dioxide 21 mmol/L (22.0-30.0); Creatinine Clearance Estimated 63 mL/min (50-200); Estimated Glomerular Filt Rate 66 ml/min (>60); GFR (African American) 80 ML/MIN (>60); Glucose 136 mg/dl (74-100)
[2020-06-11 05:55] LABS: MANUAL DIFFERENTIAL MANUAL DIFFERENTIAL (MANUAL DIFF)
--- NOTE | 2020-06-11 06:54 | HMH.ACPN2 ---
Internal Medicine - PN: Subj *Date: 06/11/20 *Time: 06:54 Interval history: Patient is remained stable over the last 24 hours. He continues to denies shortness of breath. He was out of bed to the chair for approximately an hour yesterday. Nursing staff reports when patient lays on his right side he has no difficulty maintaining O2 sats in the mid 90s. With any repositioning including laying on his left side he will desaturate into the high 80s. Patient does have some cough that remains nonproductive. Exam Vital signs and Labs for Last 24 Hours: Temp Pulse Resp BP Pulse Ox 99.2 F 85 20 124/70 92 L 06/11/20 04:00 06/11/20 05:59 06/11/20 05:59 06/11/20 05:59 06/11/20 05:59 Laboratory Results - last 24 hr 06/10/20 05:30: Total Counted 100, Neutrophils % (Manual) 90 H, Lymphocytes % (Manual) 3 L, Monocytes % (Manual) 7, Platelet Estimate Normal, RBC Morphology Normal 06/10/20 05:30: Magnesium 2.3 06/10/20 11:10: POC Glucose 180 H 06/10/20 17:10: POC Glucose 394 H* 06/11/20 05:05: WBC 14.8 H D, RBC 4.45 L, Hgb 12.7 L, Hct 36.0 L, MCV 80.9, MCH 28.7, MCHC 35.4, RDW 13.8, Plt Count 384, MPV 8.3, Neut % (Auto) 91.4 H, Lymph % (Auto) 3.7 L, [place] % (Auto) 4.6, Eos % (Auto) 0.3, Baso % (Auto) 0.1, Neut # (Auto) 13.5 H, Lymph # (Auto) 0.5 L, [place] # (Auto) 0.7, Eos # (Auto) 0.0, Baso # (Auto) 0.0 06/11/20 05:05: Sodium 137, Potassium 4.7, Chloride 106, Carbon Dioxide 21 L, Anion Gap 14.7, BUN 52 H, Creatinine 1.10, Estimated Creat Clear 63, Estimated GFR 66, Est GFR ( Amer) 80 D, Glucose 136 H D, Calcium 8.5 I & O for Last 24 hours: Intake & Output 06/08/20 06/09/20 06/10/20 06/11/20 11:59 11:59 11:59 11:59 Intake Total 2236 / 2331 1041 / 1041 802 / 802 1010 / 1010 Output Total 1645 / 1705 1857 / 1857 900 / 900 1125 / 1125 Balance 591 / 626 -816 / -816 -98 / -98 -115 / -115 Weight 172 lb 5 oz 162 lb 3.2 oz 157 lb 6.561 oz 160 lb 9 oz Microbiology Reports for the Last 24 Hours: Microbiology 06/06/20 21:23 Blood Blood Culture - Preliminary Staphylococcus capitis Narrative: Patient appears comfortable. He awakens easily. Lungs are clear this morning. Heart has a regular rate and rhythm. Abdomen is soft and nontender. Extremities have no edema. Assessment and Plan (1) COVID-19 virus infection Current visit: Yes Status: Acute Category: Medical Code(s): U07.1 - COVID-19 (2) Pneumonia Current visit: Yes Status: Acute Qualifiers: Pneumonia type: due to unspecified organism Laterality: bilateral Lung location: unspecified part of lung Qualified Code(s): J18.9 - Pneumonia, unspecified organism Category: Medical Code(s): J18.9 - Pneumonia, unspecified organism (3) Type 2 diabetes mellitus with neurological manifestations, controlled Current visit: Yes Status: Acute Category: Medical Code(s): E11.49 - Type 2 diabetes mellitus with other diabetic neurological complication (4) Long-term current use of insulin for diabetes mellitus Current visit: Yes Status: Acute Category: Medical Code(s): Z79.4 - care home (current) use of insulin; E11.9 - Type 2 diabetes mellitus without complications (5) OLIVIER (acute kidney injury) Current visit: Yes Status: Resolved Category: Medical Code(s): N17.9 - Acute kidney failure, unspecified (6) Sepsis Current visit: Yes Status: Resolved Qualifiers: Sepsis type: sepsis due to unspecified organism Sepsis acute organ dysfunction status: with acute organ dysfunction Severe sepsis acute organ dysfunction type: acute renal failure Acute renal failure type: unspecified Severe sepsis shock status: without septic shock Qualified Code(s): A41.9 - Sepsis, unspecified organism; R65.20 - Severe sepsis without septic shock; N17.9 - Acute kidney failure, unspecified Category: Medical Code(s): A41.9 - Sepsis, unspecified organism (7) Gram-positive bacteremia Current visit: Yes
[2020-06-11 07:44] LABS: Lymphocytes % 4 % (10-50); Monocytes % 3 % (2-9); Neutrophils % 93 % (42-76); Platelet Estimate Normal; Total Cells Counted 100
--- NOTE | 2020-06-11 07:44 | DIET.NUTRFU ---
Pt continues with very low intakes, appreciate continued encouragement from nursing. Receiving supplement shakes tid and encouraged to request snacks. Weight is down 5kg since t/o stay. Recommend continuing with regular diet with close monitoring BG. BG averaging 180.
[2020-06-11 07:45] LABS: RBC Morphology Normal
--- NOTE | 2020-06-11 08:24 | XR_ITS ---
PROCEDURE: XR CHEST PORTABLE CLINICAL HISTORY: Pneumonia COMPARISON: CR XR CHEST PORTABLE from 06/06/2020 FINDINGS: The cardiomediastinal silhouette and pulmonary vascularity are within normal limits. There is patchy density noted in the left lower lobe as well as the right mid lower lung zone. This has slightly improved on the right and is unchanged on the left. There may be small left effusion. No acute bony abnormalities. IMPRESSION: Bilateral pneumonia slightly improved on the right and unchanged on the left Dictated by: Luis Olivier MD 06/11/2020 09:30 Luis Olivier MD in [facility] 06/11/2020 09:30
[2020-06-11 09:06] LABS: POC Glucose,Bedside 409 (70-110)
[2020-06-11 09:06] LABS: POC Glucose,Bedside 450 (70-110)
--- NOTE | 2020-06-11 09:31 | PC.NURSE ---
Addendum entered by July Duron RN 06/11/20 09:49: patient has been repositioning self in bed. has turned from left to right side on own Original Note: patient temperature noted to be up. patient is unable at this time to answer questions appropriately. patient just repeatedly stated the man in here said i need to lay on my belly at night. encouraged patient to lay in the prone position but would not cooperate to roll into that position. also encouraged patient to drink his glucernas as instructed by doctor. however upon taking drinks patient starts gagging. will continue to encourage him to drink. he did drink one cup of water while taking medications. patient not wishing to turn at this time but will reattempt once patient has had a minute to rest and maintain o2 sats.
--- NOTE | 2020-06-11 10:43 | HMH.PULMPN ---
Internal Medicine - PN: Subj *Date: 06/11/20 *Time: 10:43 Interval history: No acute events overnight. Oral intake still poor. Exam Vital signs and Labs for Last 24 Hours: Temp Pulse Resp BP Pulse Ox 100.7 F H 112 H 30 H 148/88 H 90 L 06/11/20 10:25 06/11/20 10:00 06/11/20 10:00 06/11/20 10:00 06/11/20 10:00 Laboratory Results - last 24 hr 06/10/20 11:10: POC Glucose 180 H 06/10/20 16:34: POC Glucose 450 H* 06/10/20 16:36: POC Glucose 409 H* 06/10/20 17:10: POC Glucose 394 H* 06/11/20 05:05: WBC 14.8 H D, RBC 4.45 L, Hgb 12.7 L, Hct 36.0 L, MCV 80.9, MCH 28.7, MCHC 35.4, RDW 13.8, Plt Count 384, MPV 8.3, Neut % (Auto) 91.4 H, Lymph % (Auto) 3.7 L, [place] % (Auto) 4.6, Eos % (Auto) 0.3, Baso % (Auto) 0.1, Neut # (Auto) 13.5 H, Lymph # (Auto) 0.5 L, [place] # (Auto) 0.7, Eos # (Auto) 0.0, Baso # (Auto) 0.0, Total Counted 100, Neutrophils % (Manual) 93 H, Lymphocytes % (Manual) 4 L, Monocytes % (Manual) 3, Platelet Estimate Normal, RBC Morphology Normal 06/11/20 05:05: Sodium 137, Potassium 4.7, Chloride 106, Carbon Dioxide 21 L, Anion Gap 14.7, BUN 52 H, Creatinine 1.10, Estimated Creat Clear 63, Estimated GFR 66, Est GFR ( Amer) 80 D, Glucose 136 H D, Calcium 8.5 I & O for Last 24 hours: Intake & Output 06/08/20 06/09/20 06/10/20 06/11/20 23:59 23:59 23:59 23:59 Intake Total 1765 / 1765 670 / 670 932 / 932 510 / 510 Output Total 2127 / 2187 720 / 770 1075 / 1075 650 / 650 Balance -362 / -422 -50 / -100 -143 / -143 -140 / -140 Weight 172 lb 5 oz 162 lb 3.2 oz 157 lb 6.561 oz 160 lb 9 oz Microbiology Reports for the Last 24 Hours: Microbiology 06/06/20 21:23 Blood Blood Culture - Preliminary Staphylococcus capitis Narrative: Portable chest x-ray from this morning reviewed, showed improving infiltrates. - Constitutional mild distress - *Routine HEENT Exam Head: Present: normocephalic, atraumatic. Absent: cushingoid faces - *Routine Neck Exam Present: supple, full ROM. Absent: JVD, lymphadenopathy, thyromegaly - *Routine Respiratory Exam Present: decreased breath sounds Comments: Bilateral coarse breath sounds - *Routine Cardiovascular Exam Present: Normal S1, Normal S2 - *Routine Abdominal Exam Present: soft, normoactive bowel sounds. Absent: tenderness, distended, rebound, guarding, organomegaly - *Routine Extremities Exam Absent: cyanosis, clubbing, edema - *Routine Skin Exam Absent: intact, cyanosis, erythema Assessment and Plan (1) COVID-19 virus infection Current visit: Yes Status: Acute Category: Medical Code(s): U07.1 - COVID-19 (2) Pneumonia Current visit: Yes Status: Acute Qualifiers: Pneumonia type: due to unspecified organism Laterality: bilateral Lung location: unspecified part of lung Qualified Code(s): J18.9 - Pneumonia, unspecified organism Category: Medical Code(s): J18.9 - Pneumonia, unspecified organism (3) Type 2 diabetes mellitus with neurological manifestations, controlled Current visit: Yes Status: Acute Category: Medical Code(s): E11.49 - Type 2 diabetes mellitus with other diabetic neurological complication (4) Long-term current use of insulin for diabetes mellitus Current visit: Yes Status: Acute Category: Medical Code(s): Z79.4 - [facility] (current) use of insulin; E11.9 - Type 2 diabetes mellitus without complications (5) OLIVIER (acute kidney injury) Current visit: Yes Status: Resolved Category: Medical Code(s): N17.9 - Acute kidney failure, unspecified (6) Sepsis Current visit: Yes Status: Resolved Qualifiers: Sepsis type: sepsis due to unspecified organism Sepsis acute organ dysfunction status: with acute organ dysfunction Severe sepsis acute organ dysfunction type: acute renal failure Acute renal failure type: unspecified Severe sepsis shock status: without septic shock Qualified Code(s): A41.9 - Sepsis, unspecified organism; R65.20 - [place]
--- NOTE | 2020-06-11 13:08 | PC.NURSE ---
at this time patient noted to be back to bas line. alert and oriented x4. has no complaints. did agree to drink protein shake provided by dietary and continues to drink water. heart rate back down in the 80-90s. o2 sats up slightly 92-95%. only put out 175ml at this time. remdesivir finished and was flushed with 30ml of ns after it finished. will continue to monitor.
--- NOTE | 2020-06-11 14:10 | PC.NURSE ---
multiple family members called today on patient. update given on patient condition. poa and patient brother stating they wanted patient transferred to [facility]. patient family updated that md would be made aware of thier wishes. dr. dunham spoke with family members who stated they were okay with patient staying here unless intubated then they would like him transferred. However, family members called back asking about transfer so md was made reaware of this. family then called back stating that after they all consulted with each other they decided to let patient stay here for treatment unless condition warranted a need for transfer to a higher level of care. currently patient remains stable of vapotherm. md was made aware of the family decision to keep patient at [facility].
--- NOTE | 2020-06-11 14:15 | PC.NURSE ---
patient required a max assist to transfer to the [facility]. patient legs noted to buckle on him. he did have large loose bowel movement. upon return to bed patient sats noted to be lower 80s and it did take some time to recover and bring sats back up. patient sats noted to be better when laying on his side.
--- NOTE | 2020-06-11 17:35 | PC.NURSE ---
Addendum entered by July Duron RN 06/11/20 18:46: patient has had 2 large loose brown bms this shift Original Note: this evening patient appears to be doing better. at supper time requested to get up to chair and is currently doing well sitting up and watching tv. eatting some of his ice cream, milkshake, and ice water. o2 sats while on side and sitting up in chair noted to be mid 90s. bp has remained within normal limits. breathing easier it appears, lung sounds are clear. did well getting up to chair with a 2 assist. not as weak as earlier in shift. has turned independently in bed. mouth care provided as needed. new gown placed on patient and linens changed. rings out as needed. will continue to monitor.
[2020-06-11 18:47] LABS: POC Glucose,Bedside 352 (70-110)
[2020-06-11 18:47] LABS: POC Glucose,Bedside 228 (70-110)
[2020-06-11 18:47] LABS: POC Glucose,Bedside 391 (70-110)
[2020-06-11 19:45] LABS: POC Glucose,Bedside 349 (70-110)
--- NOTE | 2020-06-11 22:09 | PC.NURSE ---
Pt currently resting in semi (L)lateral, prone position at this time.Tolerating well. Ate 2/3 cup of ice cream and drank 1/2 cup of water tonight. Pt remains on vapotherm 100% FiO2, 40 L with current O2 sats at 95%. Nonproductive cough noted. Scattered expiratory/inspiratory rhonchi noted to lung masters. Pt denies any discomfort at this time. He has been encouraged to eat. Pt states he will try some jello and applesauce later. Spoke with family this evening on phone. They are concerned about pt's appetite and asked about a feeding tube. Family also asked about transfering pt to [facility]. This nurse advised family that pt is currently stable at this time, but will speak with MD about concerns. Family then stated that they do not want transfer at this time. Will notify MD in AM about family concerns.
[2020-06-12] VITALS (19 sets, daily range): BP systolic 96–151; BP diastolic 61–100; PULSE 70–115; RESP 17–22; TEMP 36.7–37.4; O2SAT 90–99; BMI 24.9
--- NOTE | 2020-06-12 04:14 | PC.NURSE ---
Pt ate a cup of jello and 3/4 of applesauce. Pt also drank about 60 ml of water. Tolerated well. Pt was given a bath this morning, but declined to be shaved. Pt tolerated bath poorly. Pt was noted to desat as low as 83% on exertion with recovery taking 5 min. He remains on vapotherm 100% FiO2, 40 L. Current sat of 90%. Lungs are diminished with scattered expiratory/Inspiratory rhonchi noted this shift. Nonproductive cough noted. Pt has been in prone position x2 this shift and tolerated fair. Does well on (R) side with sats noted as high as mid to upper 90s at times. Pt remains NSR with PVC's on telemetry. BS active. Total intake thus far is 335 ml and an output of 400 ml. No other concerns at this time. Will continue to monitor.
[2020-06-12 05:24] LABS: POC Glucose,Bedside 317 (70-110)
--- NOTE | 2020-06-12 06:15 | PC.NURSE ---
Pt had an additional 150 cc urine output for total urine output of 550 cc.
[2020-06-12 06:24] LABS: Basophils % 0.2 % (0.1-2.0); Eosinophils # 0.1 K/mm3 (0.0-0.4); Eosinophils % 0.4 % (0.1-12.0); Hemoglobin 12.7 g/dL (14.1-18.0); Lymphocytes # 0.5 K/mm3 (0.7-4.5); Lymphocytes % 3.1 % (10-50); Mean Corpuscular HGB Conc 35.3 g/dL (31.8-35.4); Mean Corpuscular Hemoglobin 28.4 pg (27.0-31.2); Mean Corpuscular Volume 80.3 fl (80-94); Mean Platelet Volume 7.7 fl (7.4-10.4); Monocytes # 0.6 K/mm3 (0.1-1.0); Monocytes % 3.9 % (1.7-9.3); Neutrophils # 14.9 K/mm3 (1.8-7.8); Neutrophils % 92.4 % (37.0-80.0); Platelet Count 409 K/mm3 (142-424); Red Blood Count 4.49 M/mm3 (4.60-6.20); Red Cell Distribution Width 13.8 % (11.5-17.5); White Blood Count 16.2 K/mm3 (4.8-10.8)
[2020-06-12 06:28] LABS: MANUAL DIFFERENTIAL MANUAL DIFFERENTIAL (MANUAL DIFF)
[2020-06-12 06:30] LABS: Chloride 104 mmol/L (98-107); Potassium 4.6 mmoL/L (3.5-5.1); Sodium 134 mmol/L (136-145)
[2020-06-12 06:32] LABS: Blood Urea Nitrogen 48 mg/dl (9-20)
[2020-06-12 06:33] LABS: Alanine Aminotransferase 22 U/L (12-78); Albumin Level 2.9 g/dl (3.5-5.0); Albumin/Globulin Ratio 0.8 (1.1-1.8); Alkaline Phosphatase 76 U/L (38-126); Anion Gap 15.6 mEq/L (5-15); Aspartate Amino Transferase 37 U/L (17-59); Bilirubin,Total 0.7 mg/dl (0.2-1.3); Calcium 8.7 mg/dl (8.4-10.2); Carbon Dioxide 19 mmol/L (22.0-30.0); Creatinine Clearance Estimated 60 mL/min (50-200); Estimated Glomerular Filt Rate 66 ml/min (>60); GFR (African American) 80 ML/MIN (>60); Globulin 3.5 g/dL (1.3-3.2); Glucose 342 mg/dl (74-100); Total Protein,Serum 6.4 g/dl (6.3-8.2)
[2020-06-12 07:19] LABS: Lymphocytes % 4 % (10-50); Monocytes % 1 % (2-9); Neutrophils % 95 % (42-76); Platelet Estimate Normal; RBC Morphology Normal; Total Cells Counted 100
--- NOTE | 2020-06-12 07:40 | HMH.ACPN2 ---
Internal Medicine - PN: Subj *Date: 06/12/20 *Time: 07:40 Interval history: No acute events were noted overnight. Patient continues to have O2 sats between 88 and 94%. Nursing staff reports patient seems to do better when laying on his right side. Patient has been encouraged to lay prone but has yet to do so. Appetite improved a little bit yesterday evening with a lot of encouragement from nursing staff. Patient continues to denies shortness of breath. Exam Vital signs and Labs for Last 24 Hours: Temp Pulse Resp BP Pulse Ox 98.6 F 83 22 148/89 H 94 L 06/12/20 04:00 06/12/20 06:18 06/12/20 06:18 06/12/20 06:18 06/12/20 06:18 Laboratory Results - last 24 hr 06/10/20 16:34: POC Glucose 450 H* 06/10/20 16:36: POC Glucose 409 H* 06/10/20 20:12: POC Glucose 391 H* 06/11/20 05:05: Total Counted 100, Neutrophils % (Manual) 93 H, Lymphocytes % (Manual) 4 L, Monocytes % (Manual) 3, Platelet Estimate Normal, RBC Morphology Normal 06/11/20 11:30: POC Glucose 228 H 06/11/20 16:22: POC Glucose 352 H* 06/11/20 19:35: POC Glucose 349 H* 06/12/20 05:13: POC Glucose 317 H* 06/12/20 06:07: Sodium 134 L, Potassium 4.6, Chloride 104, Carbon Dioxide 19 L, Anion Gap 15.6 H, BUN 48 H, Creatinine 1.10, Estimated Creat Clear 60, Estimated GFR 66, Est GFR ( Amer) 80, Glucose 342 H, Calcium 8.7, Total Bilirubin 0.7, AST 37, ALT 22, Alkaline Phosphatase 76, Total Protein 6.4, Albumin 2.9 L, Globulin 3.5 H, Albumin/Globulin Ratio 0.8 L 06/12/20 06:07: WBC 16.2 H, RBC 4.49 L, Hgb 12.7 L, Hct 36.0 L, MCV 80.3, MCH 28.4, MCHC 35.3, RDW 13.8, Plt Count 409, MPV 7.7, Neut % (Auto) 92.4 H, Lymph % (Auto) 3.1 L, [place] % (Auto) 3.9, Eos % (Auto) 0.4, Baso % (Auto) 0.2, Neut # (Auto) 14.9 H, Lymph # (Auto) 0.5 L, [place] # (Auto) 0.6, Eos # (Auto) 0.1, Baso # (Auto) 0.0, Total Counted 100, Neutrophils % (Manual) 95 H, Lymphocytes % (Manual) 4 L, Monocytes % (Manual) 1 L, Platelet Estimate Normal, RBC Morphology Normal I & O for Last 24 hours: Intake & Output 06/09/20 06/10/20 06/11/20 06/12/20 11:59 11:59 11:59 11:59 Intake Total 1041 / 1041 802 / 802 1130 / 1130 632.3 / 632.3 Output Total 1857 / 1857 900 / 900 1125 / 1260 1135 / 1135 Balance -816 / -816 -98 / -98 5 / -130 -502.7 / -502.7 Weight 162 lb 3.2 oz 157 lb 6.561 oz 160 lb 9 oz 155 lb Microbiology Reports for the Last 24 Hours: Microbiology 06/06/20 21:23 Blood Blood Culture - Final Staphylococcus capitis 06/06/20 21:23 Blood Blood Culture - Final NO GROWTH AFTER 5 DAYS Narrative: Patient appears comfortable. During the interview and exam he was laying on his left side. Oropharynx is moist. Lungs have diminished breath sounds but no rales, wheezes, rhonchi. Heart has a regular rate and rhythm. Abdomen is soft. Lower extremities have no edema. Patient is oriented to person and place but not time this morning. Assessment and Plan (1) COVID-19 virus infection Current visit: Yes Status: Acute Category: Medical Code(s): U07.1 - COVID-19 Continue Remdesivir, dexamethasone, HF NC with goal to keep sats in the mid 90s. Patient's blood pressure has risen slightly overnight and he will be given 40 mg of Lasix IV. I discussed with the patient need for prone positioning and increased oral intake. Regarding patient's prone positioning we will begin today by assisting the patient with laying prone for 10 minutes every 2 hours. If patient can tolerate longer than 10 minutes this will be allowed. Nursing staff will continue to encourage patient's oral intake (2) Pneumonia Current visit: Yes Status: Acute Qualifiers: Pneumonia type: due to unspecified organism Laterality: bilateral Lung location: unspecified part of lung Qualified Code(s): J18.9 - Pneumonia, unspecified organism Category: Medical Code(s): J18.9 - Pneumonia, unspecified organism Sputum culture has yet to be collected due
--- NOTE | 2020-06-12 08:47 | PC.NURSE ---
pt layed prone from 0820 to 0845. sats ranged from 94-98%.
--- NOTE | 2020-06-12 10:40 | PC.NURSE ---
PT IN PRONE POSITION FROM 1015 TO 1025. O2 SAT RANGED FROM 92%-94%
[2020-06-12 11:31] LABS: POC Glucose,Bedside 150 (70-110)
--- NOTE | 2020-06-12 11:47 | HMH.PHACONS ---
- Pharmacy Consult Date: 06/12/20 Time: 11:47 Referring provider: DR. RAMIREZ Reason for Consult:: VANCOMYCIN DOSING Allergies and ADEs:: Allergies Allergy/AdvReac Type Severity Reaction Status Date / Time No Known Allergies Allergy Verified 06/06/20 21:23 Home Medications:: Home Medications Medication Instructions Recorded Confirmed Type Insulin Aspart Prot/Insuln Asp 20 unit SQ DAILY 06/06/20 06/07/20 History [Novolog Mix 70/30 Flexpen 100 Units/mL 3mL] Lisinopril/Hydrochlorothiazide 1 tab PO DAILY 06/06/20 06/06/20 History [Lisinopril-Hctz 10-12.5 mg Tab] Metformin HCl [Metformin 1000mg 1,000 mg PO BID 06/06/20 06/06/20 History Tablets] Pravastatin Sodium [Pravachol 20mg 20 mg PO HS 06/06/20 06/06/20 History Tablet] Gabapentin [Neurontin 600mg 600 mg PO TID 06/07/20 06/07/20 History tablet] Insulin Aspart Prot/Insuln Asp 30 units SQ HS 06/07/20 06/07/20 History [Novolog Mix 70/30 Flexpen 100 Units/mL 3mL] Height: 1.68 m Weight: 70.307 kg Laboratory Results:: Laboratory Results - last 24 hr 06/10/20 20:12: POC Glucose 391 H* 06/11/20 04:50: POC Glucose 150 H 06/11/20 11:30: POC Glucose 228 H 06/11/20 16:22: POC Glucose 352 H* 06/11/20 19:35: POC Glucose 349 H* 06/12/20 05:13: POC Glucose 317 H* 06/12/20 06:07: Sodium 134 L, Potassium 4.6, Chloride 104, Carbon Dioxide 19 L, Anion Gap 15.6 H, BUN 48 H, Creatinine 1.10, Estimated Creat Clear 60, Estimated GFR 66, Est GFR ( Amer) 80, Glucose 342 H, Calcium 8.7, Total Bilirubin 0.7, AST 37, ALT 22, Alkaline Phosphatase 76, Total Protein 6.4, Albumin 2.9 L, Globulin 3.5 H, Albumin/Globulin Ratio 0.8 L 06/12/20 06:07: WBC 16.2 H, RBC 4.49 L, Hgb 12.7 L, Hct 36.0 L, MCV 80.3, MCH 28.4, MCHC 35.3, RDW 13.8, Plt Count 409, MPV 7.7, Neut % (Auto) 92.4 H, Lymph % (Auto) 3.1 L, [place] % (Auto) 3.9, Eos % (Auto) 0.4, Baso % (Auto) 0.2, Neut # (Auto) 14.9 H, Lymph # (Auto) 0.5 L, [place] # (Auto) 0.6, Eos # (Auto) 0.1, Baso # (Auto) 0.0, Total Counted 100, Neutrophils % (Manual) 95 H, Lymphocytes % (Manual) 4 L, Monocytes % (Manual) 1 L, Platelet Estimate Normal, RBC Morphology Normal Medical History: Reports:: 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 manifestations, controlled Current visit: Yes Status: Acute Category: Medical Code(s): E11.49 - Type 2 diabetes mellitus with other diabetic neurological complication (4) Long-term current use of insulin for diabetes mellitus Current visit: Yes Status: Acute Category: Medical Code(s): Z79.4 - hospice music therapy (current) use of insulin; E11.9 - Type 2 diabetes mellitus without complications (5) OLIVIER (acute kidney injury) Current visit: Yes Status: Resolved Category: Medical Code(s): N17.9 - Acute kidney failure, unspecified (6) Sepsis Current visit: Yes Status: Resolved Qualifiers: Sepsis type: sepsis due to unspecified organism Sepsis acute organ dysfunction status: with acute organ dysfunction Severe sepsis acute organ dysfunction type: acute renal failure Acute renal failure type: unspecified Severe sepsis shock status: without septic shock Qualified Code(s): A41.9 - Sepsis, unspecified organism; R65.20 - Severe sepsis without septic shock; N17.9 - Acute kidney failure, unspecified Category: Medical Code(s): A41.9 - Sepsis, unspecified organism (7) Gram-positive bacteremia Current visit: Yes
--- NOTE | 2020-06-12 12:39 | PC.NURSE ---
PT SAT UP IN CHAIR FOR 45 MINUTES. SAT RANGED FROM 93%-95%
--- NOTE | 2020-06-12 13:49 | PC.NURSE ---
PT PRONE FROM 1330 TO 1350. SAT RANGE FROM 94%-96%
--- NOTE | 2020-06-12 16:16 | PC.NURSE ---
Addendum entered by Shanna Del Cid RN 06/12/20 17:30: PT DRANK ANOTHER FULL ENSURE FOR SUPPER. Original Note: PT HAS BEEN IN THE PRONE POSITION FOR ABOUT 90 MINUTES TOTAL TODAY. OTHER REYES LAYS ON HIS SIDE OR IN BETWEEN THE SIDE AND PRONE. RT ADJUSTED PT VAPOTHERM AT 1535 TO 30L AND 90% FIO2 CURRENTLY PT IS 92% AFTER HELPING PT GET REPOSITIONED IN BED. PT COUGH HAS CONT TO BE DRY BUT OCCURS MORE OFTEN NOW. EDUCATION GIVEN TO PT ON SPUTUM NEED AND USE OF IS. PT HAS DRANK ONE WHOLE ENSURE AND ABOUT 25% OF HIS LUNCH PROTEIN SHAKE FROM THE CAFETERIA. PT HAS URINATED PER THE URINAL A TOTAL OF 875ML THUS FAR. WILL CONT. TO MONITOR.
[2020-06-12 16:20] LABS: POC Glucose,Bedside 268 (70-110)
[2020-06-12 20:07] LABS: POC Glucose,Bedside 382 (70-110)
--- NOTE | 2020-06-12 23:07 | PC.NURSE ---
Pt remains on vapotherm. FiO2 90%, 35 L. O2 sat currently 92%. Lungs are diminished t/o. Pt has been in prone position for 10-15 min. Pt then repositioned self on back and requested help to lay on (R) side. Declined a snack this evening. Will try again later. PO intake is 60 ml thus far. Urine output 150 ml. Medications administered per nov. Call light within reach. Will continue to monitor.
[2020-06-13] VITALS (12 sets, daily range): BP systolic 116–135; BP diastolic 64–93; PULSE 62–100; RESP 17–21; TEMP 36.6–37.6; O2SAT 90–96; BMI 24.3
--- NOTE | 2020-06-13 00:14 | PC.NURSE ---
Pt has been up to [facility]. Tolerated well. Brown liquid stool noted. Pt O2 sats remained in mid 90s while up. Pt was given bath and hair combed. Pt tolerated also well. Bed linens changed. Pt ambulated back to bed with assistance. Became soa during exertion, but recovered faster than previous day. Pt O2 sat is currently 92%. He declined to eat again. Pt was educated on importance of eating and drinking for wellness. Pt states he understands. No other concerns at this time. Will continue to monitor.
[2020-06-13 06:19] LABS: Basophils % 0.1 % (0.1-2.0); Eosinophils # 0.1 K/mm3 (0.0-0.4); Eosinophils % 0.8 % (0.1-12.0); Hematocrit 34.7 % (42.0-52.0); Hemoglobin 12.3 g/dL (14.1-18.0); Lymphocytes # 0.5 K/mm3 (0.7-4.5); Lymphocytes % 3.6 % (10-50); Mean Corpuscular HGB Conc 35.5 g/dL (31.8-35.4); Mean Corpuscular Hemoglobin 28.6 pg (27.0-31.2); Mean Corpuscular Volume 80.5 fl (80-94); Mean Platelet Volume 8.2 fl (7.4-10.4); Monocytes # 1.1 K/mm3 (0.1-1.0); Monocytes % 7.8 % (1.7-9.3); Neutrophils # 11.8 K/mm3 (1.8-7.8); Neutrophils % 87.6 % (37.0-80.0); Platelet Count 346 K/mm3 (142-424); Red Blood Count 4.31 M/mm3 (4.60-6.20); Red Cell Distribution Width 13.7 % (11.5-17.5); White Blood Count 13.4 K/mm3 (4.8-10.8)
[2020-06-13 06:23] LABS: MANUAL DIFFERENTIAL MANUAL DIFFERENTIAL (MANUAL DIFF)
[2020-06-13 06:33] LABS: POC Glucose,Bedside 225 (70-110)
[2020-06-13 06:33] LABS: Alanine Aminotransferase 19 U/L (12-78); Albumin/Globulin Ratio 0.9 (1.1-1.8); Alkaline Phosphatase 83 U/L (38-126); Aspartate Amino Transferase 37 U/L (17-59); Bilirubin,Total 0.6 mg/dl (0.2-1.3); Blood Urea Nitrogen 50 mg/dl (9-20); Calcium 8.6 mg/dl (8.4-10.2); Carbon Dioxide 22 mmol/L (22.0-30.0); Chloride 102 mmol/L (98-107); Creatinine Clearance Estimated 61 mL/min (50-200); Estimated Glomerular Filt Rate 66 ml/min (>60); GFR (African American) 80 ML/MIN (>60); Globulin 3.5 g/dL (1.3-3.2); Sodium 137 mmol/L (136-145); Total Protein,Serum 6.5 g/dl (6.3-8.2)
[2020-06-13 06:47] LABS: Lymphocytes % 6 % (10-50); Monocytes % 1 % (2-9); Neutrophils % 91 % (42-76); Platelet Estimate Normal; Total Cells Counted 100
[2020-06-13 06:48] LABS: Microcytosis 1+; Rouleaux 3+
[2020-06-13 06:49] LABS: Glucose 227 mg/dl (74-100)
--- NOTE | 2020-06-13 07:34 | HMH.ACPN2 ---
Internal Medicine - PN: Subj *Date: 06/13/20 *Time: 07:35 Interval history: Patient has been weaned on Vapotherm wo 35L/min and Fio2 of 90%. Patient had improvement in sats with prone position. His appetite has improved slightly. He is inquiring about discharge. Nursing reports some diarrhea. Exam Vital signs and Labs for Last 24 Hours: Temp Pulse Resp BP Pulse Ox 98.8 F 90 21 133/81 91 L 06/13/20 04:00 06/13/20 06:00 06/13/20 06:00 06/13/20 06:00 06/13/20 06:00 Laboratory Results - last 24 hr 06/11/20 04:50: POC Glucose 150 H 06/12/20 16:04: POC Glucose 268 H 06/12/20 19:49: POC Glucose 382 H* 06/13/20 05:26: POC Glucose 225 H 06/13/20 06:00: Sodium 137, Potassium 4.0, Chloride 102, Carbon Dioxide 22, Anion Gap 17.0 H, BUN 50 H, Creatinine 1.10, Estimated Creat Clear 61, Estimated GFR 66, Est GFR ( Amer) 80, Glucose 227 H D, Calcium 8.6, Total Bilirubin 0.6, AST 37, ALT 19, Alkaline Phosphatase 83, Total Protein 6.5, Albumin 3.0 L, Globulin 3.5 H, Albumin/Globulin Ratio 0.9 L 06/13/20 06:00: WBC 13.4 H, RBC 4.31 L, Hgb 12.3 L, Hct 34.7 L, MCV 80.5, MCH 28.6, MCHC 35.5 H, RDW 13.7, Plt Count 346, MPV 8.2, Neut % (Auto) 87.6 H, Lymph % (Auto) 3.6 L, [place] % (Auto) 7.8, Eos % (Auto) 0.8, Baso % (Auto) 0.1, Neut # (Auto) 11.8 H, Lymph # (Auto) 0.5 L, [place] # (Auto) 1.1 H, Eos # (Auto) 0.1, Baso # (Auto) 0.0, Total Counted 100, Neutrophils % (Manual) 91 H, Band Neutrophils % 2.0, Lymphocytes % (Manual) 6 L, Monocytes % (Manual) 1 L, Platelet Estimate Normal, Microcytosis 1+, [place]le[place] 3+ I & O for Last 24 hours: Intake & Output 06/10/20 06/11/20 06/12/20 06/13/20 11:59 11:59 11:59 11:59 Intake Total 802 / 802 1130 / 1130 1132.3 / 1132.3 1040 / 1040 Output Total 900 / 900 1125 / 1260 1860 / 1860 725 / 725 Balance -98 / -98 5 / -130 -727.7 / -727.7 315 / 315 Weight 157 lb 6.561 oz 160 lb 9 oz 155 lb 151 lb 9.6 oz - Constitutional no acute distress Comments: looks weakened - *Routine Respiratory Exam Comments: clear breath sounds anteriorly, slighlty diminished posteriorly - *Routine Cardiovascular Exam Present: RRR - *Routine Extremities Exam Absent: edema Assessment and Plan (1) COVID-19 virus infection Current visit: Yes Status: Acute Category: Medical Code(s): U07.1 - COVID-19 Continue prone positioning throughout the day (2) Pneumonia Current visit: Yes Status: Acute Qualifiers: Pneumonia type: due to unspecified organism Laterality: bilateral Lung location: unspecified part of lung Qualified Code(s): J18.9 - Pneumonia, unspecified organism Category: Medical Code(s): J18.9 - Pneumonia, unspecified organism Cont. to await for quality sputum to send for culture. D/C azithromycin. WBC decreased today. (3) Type 2 diabetes mellitus with neurological manifestations, controlled Current visit: Yes Status: Acute Category: Medical Code(s): E11.49 - Type 2 diabetes mellitus with other diabetic neurological complication (4) Long-term current use of insulin for diabetes mellitus Current visit: Yes Status: Acute Category: Medical Code(s): Z79.4 - senior living (current) use of insulin; E11.9 - Type 2 diabetes mellitus without complications (5) OLIVIER (acute kidney injury) Current visit: Yes Status: Resolved Category: Medical Code(s): N17.9 - Acute kidney failure, unspecified (6) Sepsis Current visit: Yes Status: Resolved Qualifiers: Sepsis type: sepsis due to unspecified organism Sepsis acute organ dysfunction status: with acute organ dysfunction Severe sepsis acute organ dysfunction type: acute renal failure Acute renal failure type: unspecified Severe sepsis shock status: without septic shock Qualified Code(s): A41.9 - Sepsis, unspecified organism; R65.20 - Severe sepsis without septic shock; N17.9 - Acute kidney failure, unspecified Category: Medical Code(s): A41.9 - Sepsis, unspecified organism (7) Gram-positiv
--- NOTE | 2020-06-13 07:46 | PC.NURSE ---
per dr. dunham, pt may come out of step down to acute care.
[2020-06-13 10:37] LABS: POC Glucose,Bedside 321 (70-110)
--- NOTE | 2020-06-13 11:00 | HMH.ACPN ---
Internal Medicine - PN: Subj *Date: 06/13/20 *Time: 11:00 Exam Vital signs and Labs for Last 24 Hours: Temp Pulse Resp BP Pulse Ox 98.8 F 92 H 21 126/69 93 L 06/13/20 04:00 06/13/20 08:00 06/13/20 08:00 06/13/20 08:00 06/13/20 08:00 Laboratory Results - last 24 hr 06/11/20 04:50: POC Glucose 150 H 06/12/20 16:04: POC Glucose 268 H 06/12/20 19:49: POC Glucose 382 H* 06/13/20 05:26: POC Glucose 225 H 06/13/20 06:00: Sodium 137, Potassium 4.0, Chloride 102, Carbon Dioxide 22, Anion Gap 17.0 H, BUN 50 H, Creatinine 1.10, Estimated Creat Clear 61, Estimated GFR 66, Est GFR ( Amer) 80, Glucose 227 H D, Calcium 8.6, Total Bilirubin 0.6, AST 37, ALT 19, Alkaline Phosphatase 83, Total Protein 6.5, Albumin 3.0 L, Globulin 3.5 H, Albumin/Globulin Ratio 0.9 L 06/13/20 06:00: WBC 13.4 H, RBC 4.31 L, Hgb 12.3 L, Hct 34.7 L, MCV 80.5, MCH 28.6, MCHC 35.5 H, RDW 13.7, Plt Count 346, MPV 8.2, Neut % (Auto) 87.6 H, Lymph % (Auto) 3.6 L, [place] % (Auto) 7.8, Eos % (Auto) 0.8, Baso % (Auto) 0.1, Neut # (Auto) 11.8 H, Lymph # (Auto) 0.5 L, [place] # (Auto) 1.1 H, Eos # (Auto) 0.1, Baso # (Auto) 0.0, Total Counted 100, Neutrophils % (Manual) 91 H, Band Neutrophils % 2.0, Lymphocytes % (Manual) 6 L, Monocytes % (Manual) 1 L, Platelet Estimate Normal, Microcytosis 1+, Rouleaux 3+ 06/13/20 10:23: POC Glucose 321 H* I & O for Last 24 hours: Intake & Output 09/07/2006/11/20 06/12/20 06/13/20 23:59 23:59 23:59 23:59 Intake Total 932 / 932 1142.3 / 1142.3 1340 / 1540 200 / 200 Output Total 1075 / 1075 1435 / 1435 1400 / 1700 400 / 400 Balance -143 / -143 -292.7 / -292.7 -60 / -160 -200 / -200 Weight 71.4 kg 72.83 kg 70.307 kg 68.765 kg Assessment and Plan (1) COVID-19 virus infection Current visit: Yes Status: Acute Category: Medical Code(s): U07.1 - COVID-19 (2) Pneumonia Current visit: Yes Status: Acute Qualifiers: Pneumonia type: due to unspecified organism Laterality: bilateral Lung location: unspecified part of lung Qualified Code(s): J18.9 - Pneumonia, unspecified organism Category: Medical Code(s): J18.9 - Pneumonia, unspecified organism (3) Type 2 diabetes mellitus with neurological manifestations, controlled Current visit: Yes Status: Acute Category: Medical Code(s): E11.49 - Type 2 diabetes mellitus with other diabetic neurological complication (4) Long-term current use of insulin for diabetes mellitus Current visit: Yes Status: Acute Category: Medical Code(s): Z79.4 - terminal operations supervisor (current) use of insulin; E11.9 - Type 2 diabetes mellitus without complications (5) OLIVIER (acute kidney injury) Current visit: Yes Status: Resolved Category: Medical Code(s): N17.9 - Acute kidney failure, unspecified (6) Sepsis Current visit: Yes Status: Resolved Qualifiers: Sepsis type: sepsis due to unspecified organism Sepsis acute organ dysfunction status: with acute organ dysfunction Severe sepsis acute organ dysfunction type: acute renal failure Acute renal failure type: unspecified Severe sepsis shock status: without septic shock Qualified Code(s): A41.9 - Sepsis, unspecified organism; R65.20 - Severe sepsis without septic shock; N17.9 - Acute kidney failure, unspecified Category: Medical Code(s): A41.9 - Sepsis, unspecified organism (7) Gram-positive bacteremia Current visit: Yes Status: Acute Category: Medical Code(s): R78.81 - Bacteremia (8) Essential hypertension Current visit: Yes Status: Acute Category: Medical Code(s): I10 - Essential (primary) hypertension The patient's infection will respond to the chosen ABx?: Yes Is the patient receiving the right drug, dose, and route?: Yes Could a more targeted ABx be ordered?: No (MD Sanchez/Irene MOORE THIS AM.)
[2020-06-13 16:22] LABS: POC Glucose,Bedside 265 (70-110)
[2020-06-13 16:32] LABS: Adenovirus F 40/41, stool Not Detected (NotDetected); Astrovirus Not Detected (NotDetected); Campylobacter Not Detected (NotDetected); Clostridium Difficile A/B, PCR Not Detected (NotDetected); Cryptosporidium Not Detected (NotDetected); Cyclospora Cayetanesis Not Detected (NotDetected); Entamoeba histolytica Not Detected (NotDetected); Enteroaggregative E coli Not Detected (NotDetected); Enteropathogenic E coli Not Detected (NotDetected); Enterotoxigenic E coli Not Detected (NotDetected); Giardia lamblia Not Detected (NotDetected); Norovirus Not Detected (NotDetected); Plesimonas Shigalloides, PCR Not Detected (NotDetected); Rotavirus A Not Detected (NotDetected); Salmonella, PCR Not Detected (NotDetected); Sapovirus Not Detected (NotDetected); Shiga-like toxin E coli Not Detected (NotDetected); Shigella Enterovasive E coli Not Detected (NotDetected); Vibrio Cholerae Not Detected (NotDetected); Vibrio, PCR Not Detected (NotDetected); Yersinia Entercolitica, PCR Not Detected (NotDetected)
--- NOTE | 2020-06-13 17:21 | PC.NURSE ---
Addendum entered by Shanna Del Cid RN 06/13/20 18:22: PT UP TO [facility] X3 TODAY WITH LOOSE STOOLS, SAMPLE SENT TO LAB AND RESULTED NEGATIVE. Original Note: PT WAS NON COMPLIANT TODAY. COULD NOT GET PT TO EAT MUCH, ONLY DRINK WATER. HE STATED HE ATE A BIG BREAKFAST AND THATS ALL HE WANTED TODAY. PT WAS SITTING UP IN THE CHAIR UPON ARRIVAL AND STAYED UP UNTIL ABOUT 0930. HE SAT UP AGAIN FOR ANOTHER HOURS THIS AFTER NOON. PT ONLY ALLOWED STAFF TO PUT HIM IN THE PRONE POSITION FOR 30MINUTES. RT WEANED VAPOTHERM DOWN TO 35L FIO2 85% FOR MOST OF THE DAY.. AROUND 4 RT HAD TO INCREASE HIS FIO2 TO 90% AGAIN TO MAINTAIN O2 >92%. WILL CONT. TO MONITOR.
[2020-06-13 20:58] LABS: POC Glucose,Bedside 246 (70-110)
[2020-06-14] VITALS (13 sets, daily range): BP systolic 103–161; BP diastolic 61–84; PULSE 67–120; RESP 18–22; TEMP 36.6–37.2; O2SAT 89–95; BMI 24.3
--- NOTE | 2020-06-14 02:42 | PC.NURSE ---
Pt has slept most of shift. Has declined anything to eat, but has had some sips of water with encouragement. Remains on vapotherm @ 90% FiO2, 35 L. O2 sats currently 93%. Pt desats at times but recovers after repositioning. He has cooperated more with prone position and has remained in this position for longer intervals. Lung masters remain diminished. BS active. Pt has not had any loose stools this shift. Urine output 150 cc thus far. No other concerns at this time. Will continue to monitor.
[2020-06-14 05:24] LABS: POC Glucose,Bedside 221 (70-110)
--- NOTE | 2020-06-14 06:52 | HMH.ACPN2 ---
Internal Medicine - PN: Subj *Date: 06/14/20 *Time: 06:52 Interval history: Patient had no problems overnight although nursing staff raises concern about what appears to be setbacks in the patient's care. He continues to lay prone when instructed which does improve O2 sats. However he seems weaker. While Sunday and early Sunday morning the patient was doing well in regards to attempt to eat he now claims he is no longer hungry. Patient admits he is depressed about not being able to leave the hospital due to his illness Exam Vital signs and Labs for Last 24 Hours: Temp Pulse Resp BP Pulse Ox 98.0 F 67 18 136/72 89 L 06/14/20 04:00 06/14/20 04:00 06/14/20 04:00 06/14/20 04:00 06/14/20 04:00 Laboratory Results - last 24 hr 06/12/20 11:26: POC Glucose 221 H 06/13/20 10:23: POC Glucose 321 H* 06/13/20 11:30: Stl Aeromonas (PCR) Not detected, Stl C. cayetanensis PCR Not detected, Stool Rotavirus (PCR) Not detected, Stl Adenov F 40/41 PCR Not detected, Stool Astrovirus (PCR) Not detected, Stool Campylobacter PCR Not detected, Stl C.difficile Tox PCR Not detected, Stool Cryptosporidium PCR Not detected, Stl E.coli Shiga Tox PCR Not detected, Stool E coli O157 PCR Not detected, Stl Enterotoxigenic E PCR Not detected, Stool EPEC (PCR) Not detected, Stool EAEC (PCR) Not detected, Stl E. histolytica PCR Not detected, Stool Giardia Lamblia PCR Not detected, Stool Salmonella PCR Not detected, Stool Sapovirus (PCR) Not detected, Stl P. shigelloides PCR Not detected, Stl Shigella/EIEC PCR Not detected, St Y.enterocolitica PCR Not detected, Stool Vibrio (PCR) Not detected, Stl Vibrio cholerae PCR Not detected, Stl Norovirus GI/GII PCR Not detected 06/13/20 16:11: POC Glucose 265 H 06/13/20 20:09: POC Glucose 246 H I & O for Last 24 hours: Intake & Output 06/11/20 06/12/20 06/13/20 06/14/20 11:59 11:59 11:59 11:59 Intake Total 1130 / 1130 1132.3 / 1132.3 1190 / 1190 230 / 230 Output Total 1125 / 1260 1860 / 1860 875 / 875 625 / 625 Balance 5 / -130 -727.7 / -727.7 315 / 315 -395 / -395 Weight 160 lb 9 oz 155 lb 151 lb 9.6 oz 151 lb 9 oz Narrative: He shows no signs of respiratory distress. He appears comfortable. Patient is conversant and answers questions appropriately. Lung exam reveals clear lungs. Heart has a regular rate and rhythm. Abdomen is soft. Extremities have JUANITA hose. Assessment and Plan (1) COVID-19 virus infection Current visit: Yes Status: Acute Category: Medical Code(s): U07.1 - COVID-19 (2) Pneumonia Current visit: Yes Status: Acute Qualifiers: Pneumonia type: due to unspecified organism Laterality: bilateral Lung location: unspecified part of lung Qualified Code(s): J18.9 - Pneumonia, unspecified organism Category: Medical Code(s): J18.9 - Pneumonia, unspecified organism (3) Type 2 diabetes mellitus with neurological manifestations, controlled Current visit: Yes Status: Acute Category: Medical Code(s): E11.49 - Type 2 diabetes mellitus with other diabetic neurological complication (4) Long-term current use of insulin for diabetes mellitus Current visit: Yes Status: Acute Category: Medical Code(s): Z79.4 - intermission coordinator (current) use of insulin; E11.9 - Type 2 diabetes mellitus without complications (5) OLIVIER (acute kidney injury) Current visit: Yes Status: Resolved Category: Medical Code(s): N17.9 - Acute kidney failure, unspecified (6) Sepsis Current visit: Yes Status: Resolved Qualifiers: Sepsis type: sepsis due to unspecified organism Sepsis acute organ dysfunction status: with acute organ dysfunction Severe sepsis acute organ dysfunction type: acute renal failure Acute renal failure type: unspecified Severe sepsis shock status: without septic shock Qualified Code(s): A41.9 - Sepsis, unspecified organism; R65.20 - Severe sepsis without septic shock; N17.9 - Acute kidney failure, unspecified Category: Medical Code(s): A
--- NOTE | 2020-06-14 08:15 | PC.NURSE ---
RT changed Vapotherm settings to 100% and 40 L due to low saturations will continue to monitor and try to wean back down.
--- NOTE | 2020-06-14 09:10 | PC.NURSE ---
Addendum entered by Shanna Del Cid RN 06/14/20 09:21: dr. dorsey weaned fio2 down to 85%. pt o2 sat is 92% currently Original Note: dr. dorsey stated he would like pt to stay on 40L of vapotherm and to not decrease LPM until the fio2 is down to 50%. let rt know.
--- NOTE | 2020-06-14 09:32 | PC.NURSE ---
vanc dose late d/t pt refusing labs this am, then being a difficult stick, lab at bedside now attempting to draw.
[2020-06-14 10:12] LABS: Basophils % 0.1 % (0.1-2.0); Eosinophils # 0.2 K/mm3 (0.0-0.4); Eosinophils % 0.9 % (0.1-12.0); Hematocrit 37.5 % (42.0-52.0); Hemoglobin 12.9 g/dL (14.1-18.0); Lymphocytes # 0.4 K/mm3 (0.7-4.5); Lymphocytes % 2.5 % (10-50); Mean Corpuscular HGB Conc 34.5 g/dL (31.8-35.4); Mean Corpuscular Hemoglobin 28.6 pg (27.0-31.2); Mean Corpuscular Volume 83.1 fl (80-94); Monocytes # 0.4 K/mm3 (0.1-1.0); Monocytes % 2.5 % (1.7-9.3); Neutrophils # 15.4 K/mm3 (1.8-7.8); Platelet Count 295 K/mm3 (142-424); Red Blood Count 4.51 M/mm3 (4.60-6.20); Red Cell Distribution Width 13.8 % (11.5-17.5); White Blood Count 16.4 K/mm3 (4.8-10.8)
[2020-06-14 10:15] LABS: MANUAL DIFFERENTIAL MANUAL DIFFERENTIAL (MANUAL DIFF)
[2020-06-14 10:46] LABS: Vancomycin,Trough 11.9 ug/mL (5.0-10.0)
--- NOTE | 2020-06-14 11:04 | HMH.PHACONS ---
- Pharmacy Consult Date: 06/14/20 Time: 11:04 Referring provider: DR. RAMIREZ Reason for Consult:: VANCOMYCIN TROUGH LEVEL Allergies and ADEs:: Allergies Allergy/AdvReac Type Severity Reaction Status Date / Time No Known Allergies Allergy Verified 06/06/20 21:23 Home Medications:: Home Medications Medication Instructions Recorded Confirmed Type Insulin Aspart Prot/Insuln Asp 20 unit SQ DAILY 06/06/20 06/07/20 History [Novolog Mix 70/30 Flexpen 100 Units/mL 3mL] Lisinopril/Hydrochlorothiazide 1 tab PO DAILY 06/06/20 06/06/20 History [Lisinopril-Hctz 10-12.5 mg Tab] Metformin HCl [Metformin 1000mg 1,000 mg PO BID 06/06/20 06/06/20 History Tablets] Pravastatin Sodium [Pravachol 20mg 20 mg PO HS 06/06/20 06/06/20 History Tablet] Gabapentin [Neurontin 600mg 600 mg PO TID 06/07/20 06/07/20 History tablet] Insulin Aspart Prot/Insuln Asp 30 units SQ HS 06/07/20 06/07/20 History [Novolog Mix 70/30 Flexpen 100 Units/mL 3mL] Height: 1.68 m Weight: 68.748 kg Laboratory Results:: Laboratory Results - last 24 hr 06/12/20 11:26: POC Glucose 221 H 06/13/20 11:30: Stl Aeromonas (PCR) Not detected, Stl C. cayetanensis PCR Not detected, Stool Rotavirus (PCR) Not detected, Stl Adenov F 40/41 PCR Not detected, Stool Astrovirus (PCR) Not detected, Stool Campylobacter PCR Not detected, Stl C.difficile Tox PCR Not detected, Stool Cryptosporidium PCR Not detected, Stl E.coli Shiga Tox PCR Not detected, Stool E coli O157 PCR Not detected, Stl Enterotoxigenic E PCR Not detected, Stool EPEC (PCR) Not detected, Stool EAEC (PCR) Not detected, Stl E. histolytica PCR Not detected, Stool Giardia Lamblia PCR Not detected, Stool Salmonella PCR Not detected, Stool Sapovirus (PCR) Not detected, Stl P. shigelloides PCR Not detected, Stl Shigella/EIEC PCR Not detected, St Y.enterocolitica PCR Not detected, Stool Vibrio (PCR) Not detected, Stl Vibrio cholerae PCR Not detected, Stl Norovirus GI/GII PCR Not detected 06/13/20 16:11: POC Glucose 265 H 06/13/20 20:09: POC Glucose 246 H 06/14/20 09:35: Vancomycin Trough 11.9 H 06/14/20 09:35: WBC 16.4 H, RBC 4.51 L, Hgb 12.9 L, Hct 37.5 L, MCV 83.1, MCH 28.6, MCHC 34.5, RDW 13.8, Plt Count 295, MPV 8.0, Neut % (Auto) 94.0 H, Lymph % (Auto) 2.5 L, [place] % (Auto) 2.5, Eos % (Auto) 0.9, Baso % (Auto) 0.1, Neut # (Auto) 15.4 H, Lymph # (Auto) 0.4 L, [place] # (Auto) 0.4, Eos # (Auto) 0.2, Baso # (Auto) 0.0 Medical History: Reports:: 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 manifestations, controlled Current visit: Yes Status: Acute Category: Medical Code(s): E11.49 - Type 2 diabetes mellitus with other diabetic neurological complication (4) Long-term current use of insulin for diabetes mellitus Current visit: Yes Status: Acute Category: Medical Code(s): Z79.4 - termite exterminator (current) use of insulin; E11.9 - Type 2 diabetes mellitus without complications (5) OLIVIER (acute kidney injury) Current visit: Yes Status: Resolved Category: Medical Code(s): N17.9 - Acute kidney failure, unspecified (6) Sepsis Current visit: Yes Status: Resolved Qualifiers: Sepsis type: sepsis due to unspecified organism Sepsis acute organ dysfunction status: with acute organ dysfunction Severe sepsis acute organ dysfunction type: acute renal failure Acute renal failure type: unspecified Severe sepsis shock status: without
[2020-06-14 11:25] LABS: POC Glucose,Bedside 186 (70-110)
[2020-06-14 11:25] LABS: POC Glucose,Bedside 377 (70-110)
[2020-06-14 11:57] LABS: Lymphocytes % 1 % (10-50); Monocytes % 1 % (2-9); Neutrophils % 98 % (42-76); Platelet Estimate Normal; Total Cells Counted 100
[2020-06-14 11:58] LABS: RBC Morphology Normal
--- NOTE | 2020-06-14 15:43 | HMH.PULMPN ---
Internal Medicine - PN: Subj *Date: 06/14/20 *Time: 15:43 Interval history: No acute event overnight patient's respiratory status remained stable. Exam Vital signs and Labs for Last 24 Hours: Temp Pulse Resp BP Pulse Ox 98.8 F 90 20 103/61 L 92 L 06/14/20 12:00 06/14/20 13:52 06/14/20 13:52 06/14/20 13:52 06/14/20 13:52 Laboratory Results - last 24 hr 06/12/20 11:26: POC Glucose 221 H 06/13/20 11:30: Stl Aeromonas (PCR) Not detected, Stl C. cayetanensis PCR Not detected, Stool Rotavirus (PCR) Not detected, Stl Adenov F 40/41 PCR Not detected, Stool Astrovirus (PCR) Not detected, Stool Campylobacter PCR Not detected, Stl C.difficile Tox PCR Not detected, Stool Cryptosporidium PCR Not detected, Stl E.coli Shiga Tox PCR Not detected, Stool E coli O157 PCR Not detected, Stl Enterotoxigenic E PCR Not detected, Stool EPEC (PCR) Not detected, Stool EAEC (PCR) Not detected, Stl E. histolytica PCR Not detected, Stool Giardia Lamblia PCR Not detected, Stool Salmonella PCR Not detected, Stool Sapovirus (PCR) Not detected, Stl P. shigelloides PCR Not detected, Stl Shigella/EIEC PCR Not detected, St Y.enterocolitica PCR Not detected, Stool Vibrio (PCR) Not detected, Stl Vibrio cholerae PCR Not detected, Stl Norovirus GI/GII PCR Not detected 06/13/20 16:11: POC Glucose 265 H 06/13/20 20:09: POC Glucose 246 H 06/14/20 06:03: POC Glucose 186 H 06/14/20 09:35: Vancomycin Trough 11.9 H 06/14/20 09:35: WBC 16.4 H, RBC 4.51 L, Hgb 12.9 L, Hct 37.5 L, MCV 83.1, MCH 28.6, MCHC 34.5, RDW 13.8, Plt Count 295, MPV 8.0, Neut % (Auto) 94.0 H, Lymph % (Auto) 2.5 L, [place] % (Auto) 2.5, Eos % (Auto) 0.9, Baso % (Auto) 0.1, Neut # (Auto) 15.4 H, Lymph # (Auto) 0.4 L, [place] # (Auto) 0.4, Eos # (Auto) 0.2, Baso # (Auto) 0.0, Total Counted 100, Neutrophils % (Manual) 98 H, Lymphocytes % (Manual) 1 L, Monocytes % (Manual) 1 L, Platelet Estimate Normal, RBC Morphology Normal 06/14/20 11:13: POC Glucose 377 H* I & O for Last 24 hours: Intake & Output 06/11/20 06/12/20 06/13/20 06/14/20 23:59 23:59 23:59 23:59 Intake Total 1142.3 / 1142.3 1340 / 1540 580 / 580 760 / 760 Output Total 1435 / 1435 1400 / 1700 925 / 1075 525 / 525 Balance -292.7 / -292.7 -60 / -160 -345 / -495 235 / 235 Weight 160 lb 9 oz 155 lb 151 lb 9.6 oz 151 lb 9 oz - *Routine HEENT Exam Head: Present: normocephalic, atraumatic - *Routine Neck Exam Present: supple, full ROM. Absent: lymphadenopathy, thyromegaly - *Routine Abdominal Exam Present: soft, normoactive bowel sounds. Absent: tenderness, distended, rebound - *Routine Extremities Exam Absent: cyanosis, clubbing, edema Assessment and Plan (1) COVID-19 virus infection Current visit: Yes Status: Acute Category: Medical Code(s): U07.1 - COVID-19 (2) Pneumonia Current visit: Yes Status: Acute Qualifiers: Pneumonia type: due to unspecified organism Laterality: bilateral Lung location: unspecified part of lung Qualified Code(s): J18.9 - Pneumonia, unspecified organism Category: Medical Code(s): J18.9 - Pneumonia, unspecified organism (3) Type 2 diabetes mellitus with neurological manifestations, controlled Current visit: Yes Status: Acute Category: Medical Code(s): E11.49 - Type 2 diabetes mellitus with other diabetic neurological complication (4) Long-term current use of insulin for diabetes mellitus Current visit: Yes Status: Acute Category: Medical Code(s): Z79.4 - custodial (current) use of insulin; E11.9 - Type 2 diabetes mellitus without complications (5) OLIVIER (acute kidney injury) Current visit: Yes Status: Resolved Category: Medical Code(s): N17.9 - Acute kidney failure, unspecified (6) Sepsis Current visit: Yes Status: Resolved Qualifiers: Sepsis type: sepsis due to unspecified organism Sepsis acute organ dysfunction status: with acute organ dysfunction Severe sepsis acute organ dysfunction type: acute renal failure Acute renal failure type:
[2020-06-14 16:22] LABS: POC Glucose,Bedside 391 (70-110)
--- NOTE | 2020-06-14 17:05 | PC.NURSE ---
Addendum entered by Shanna Del Cid RN 06/14/20 17:31: WITH ANY ACTIVITY PT DESATS TO HIGH 80'S AND TAKES A LITTLE BIT TO REACH >92%. HE HAS NO C/O OF SOB. Original Note: pt has done better today than previous day with me. his o2 has remained in the 90's this afternoon. he has been in prone position for about 2 hours total today his o2 sats would reach high 90's. and sat up in the chair twice today. pt has ate 1.5 protein shakes, a couple bites of pudding, and drank water almost every hour. his lungs remain diminished. he cont. to have dry cough, occurs more when he is in prone position. pt has teds on. no bm today. pt still needs a lot of encouragement to do any ADL'S. education given to pt on need to get out of bed and laying prone. vss. will cont. to monitor.
--- NOTE | 2020-06-14 22:30 | PC.NURSE ---
he is alert to person, place, and time. He is weak and requires assistance with turning and repositioning. After encouragement he attempts to turn himself prone but is unable to fully turn. At shift change his O2 decreased to 84-86% on vapotherm @ 40LPM 85% FiO2; therefore, Shanna paged respiratory and his O2 was increased to 40LPM 100% FiO2 @ 1940. Have attempted to began weaning O2 again since turning to his side. O2 is currently 97% on 40LPM 90% FiO2. Unable to fully turn him prone because he will not assist with his upper body. He did use incentive spirometer. Oral care provided per staff. He refused a bedtime snack. 2100 FSBS was 338. 5th digit on right foot is purple at the tip. Small purplish are noted in 2nd digit on right toe and splinter hemorrhages noted on right great toe. NSR on telemetry.
[2020-06-15] VITALS (30 sets, daily range): BP systolic 75–168; BP diastolic 44–104; PULSE 70–120; RESP 18–24; TEMP 36.4–37.7; O2SAT 90–100; BMI 22.8
--- NOTE | 2020-06-15 02:03 | PC.NURSE ---
Placed in prone position at this time. Current O2 settings are 40LPM [id number]% He is 94% at this time.
--- NOTE | 2020-06-15 04:25 | PC.NURSE ---
He has turned to his left side from the prone position. Oxygen is 93% on 40LPM 95% FiO2.
--- NOTE | 2020-06-15 06:43 | HMH.ACPN2 ---
Internal Medicine - PN: Subj *Date: 06/15/20 *Time: 06:43 Interval history: Patient remained stable throughout the day and overnight yesterday. FiO2 was briefly weaned to 85% although patient eventually desatted and FiO2 was increased again to 95%. Currently O2 sats are in the 90s. Patient awakens easily this morning. He continues to denies shortness of breath. Exam Vital signs and Labs for Last 24 Hours: Temp Pulse Resp BP Pulse Ox 98.0 F 80 19 147/76 H 90 L 06/15/20 04:00 06/15/20 04:00 06/15/20 04:00 06/15/20 04:00 06/15/20 04:00 Laboratory Results - last 24 hr 06/14/20 06:03: POC Glucose 186 H 06/14/20 09:35: Vancomycin Trough 11.9 H 06/14/20 09:35: WBC 16.4 H, RBC 4.51 L, Hgb 12.9 L, Hct 37.5 L, MCV 83.1, MCH 28.6, MCHC 34.5, RDW 13.8, Plt Count 295, MPV 8.0, Neut % (Auto) 94.0 H, Lymph % (Auto) 2.5 L, [place] % (Auto) 2.5, Eos % (Auto) 0.9, Baso % (Auto) 0.1, Neut # (Auto) 15.4 H, Lymph # (Auto) 0.4 L, [place] # (Auto) 0.4, Eos # (Auto) 0.2, Baso # (Auto) 0.0, Total Counted 100, Neutrophils % (Manual) 98 H, Lymphocytes % (Manual) 1 L, Monocytes % (Manual) 1 L, Platelet Estimate Normal, RBC Morphology Normal 06/14/20 11:13: POC Glucose 377 H* 06/14/20 16:12: POC Glucose 391 H* I & O for Last 24 hours: Intake & Output 06/12/20 06/13/20 06/14/20 06/15/20 11:59 11:59 11:59 11:59 Intake Total 1132.3 / 1132.3 1190 / 1190 230 / 230 1120 / 1120 Output Total 1860 / 1860 875 / 875 775 / 775 405 / 405 Balance -727.7 / -727.7 315 / 315 -545 / -545 715 / 715 Weight 155 lb 151 lb 9.6 oz 151 lb 9 oz 142 lb Narrative: Patient appears comfortable and shows no signs of increased work of breathing. He is oriented to person and place. Lungs are clear overall. Heart has a regular rate and rhythm. Patient has small purplish bruise on the tip of his right fifth toe as well as a linear shaped bruise which I believe is from his compression stockings over the dorsal aspect of the fourth left toe. Assessment and Plan (1) COVID-19 virus infection Current visit: Yes Status: Acute Category: Medical Code(s): U07.1 - COVID-19 (2) Pneumonia Current visit: Yes Status: Acute Qualifiers: Pneumonia type: due to unspecified organism Laterality: bilateral Lung location: unspecified part of lung Qualified Code(s): J18.9 - Pneumonia, unspecified organism Category: Medical Code(s): J18.9 - Pneumonia, unspecified organism (3) Type 2 diabetes mellitus with neurological manifestations, controlled Current visit: Yes Status: Acute Category: Medical Code(s): E11.49 - Type 2 diabetes mellitus with other diabetic neurological complication (4) Long-term current use of insulin for diabetes mellitus Current visit: Yes Status: Acute Category: Medical Code(s): Z79.4 - shelter (current) use of insulin; E11.9 - Type 2 diabetes mellitus without complications (5) OLIVIER (acute kidney injury) Current visit: Yes Status: Resolved Category: Medical Code(s): N17.9 - Acute kidney failure, unspecified (6) Sepsis Current visit: Yes Status: Resolved Qualifiers: Sepsis type: sepsis due to unspecified organism Sepsis acute organ dysfunction status: with acute organ dysfunction Severe sepsis acute organ dysfunction type: acute renal failure Acute renal failure type: unspecified Severe sepsis shock status: without septic shock Qualified Code(s): A41.9 - Sepsis, unspecified organism; R65.20 - Severe sepsis without septic shock; N17.9 - Acute kidney failure, unspecified Category: Medical Code(s): A41.9 - Sepsis, unspecified organism (7) Gram-positive bacteremia Current visit: Yes Status: Acute Category: Medical Code(s): R78.81 - Bacteremia (8) Essential hypertension Current visit: Yes Status: Acute Category: Medical Code(s): I10 - Essential (primary) hypertension - Assessment and plan all Dx Assessment and Plan for all problems:: 1. Nutrition consult and consi
--- NOTE | 2020-06-15 06:59 | PC.NURSE ---
Pt's O2 at 93% on 40LPM 95% FiO2 at 0600 then placed prone and his sats dropped to 74%. At this time he is sitting up in the chair with a non-breather over his vapotherm per respiratory. MD aware. Pt's sats usually slowly improve; therefore, giving him some time to recover. Sats 93% at this time.
[2020-06-15 07:42] LABS: ABG Base Excess -5.4 mmol/L (-2.4-2.3); ABG HCO3 18.5 mmhg (22.0-26.0); ABG PCO2 27.1 mmhg (35.0-45.0); ABG PH 7.45 mmol/L (7.35-7.45); ABG TCO2 19.4 mmhg (23-27)
[2020-06-15 07:43] LABS: ABG Oxygen Saturation 91 % (90-100); Allen's Test ACCEPTABLE; Oxygen 100 %; Source R RADIAL
--- NOTE | 2020-06-15 08:42 | XR_ITS ---
PROCEDURE: XR CHEST PORTABLE CLINICAL HISTORY: Hypoxia COMPARISON: CR XR CHEST PORTABLE from 06/06/2020 CR XR CHEST PORTABLE from 06/11/2020 FINDINGS: The cardiomediastinal silhouette and pulmonary vascularity are within normal limits. Alveolar opacification is present peripherally in the left upper and left lower lobe and centrally in the right upper lobe consistent bilateral pneumonia which is worse compared to the previous exam. Normal heart size. No acute bony findings. IMPRESSION: Worsening bilateral pneumonia Dictated by: Luis Olivier MD 06/15/2020 10:23 Luis Olivier MD in [facility] 06/15/2020 10:23
--- NOTE | 2020-06-15 09:34 | DIET.NUTRFU ---
Addendum entered by Merary Morales 06/15/20 15:57: Recommend 8oz or 237mL Jevity 1.2 per feeding (6 feedings per day) Original Note: Pt with continued poor intakes and has lost 7kg t/o stay. Intakes are an average of 25% and inadequate intake supplements. in addition his poor intakes leading to inappropriate macronutrient ranges is contributing to hyperglycemia. If intakes continue to be under 25% TF may be indicated dt pt only meeting 50-60% of needs for prolonged time. There are certainly concerns about pt's compliance with positioning for tube feed. Refeeding syndrome is also of concern. Will continue close monitoring of pt. If indicated by pt/family, intakes below 25%, and MD recommend initiating Bolus tube feeds of Jevity 1.2 q 4 hours. This regimen will meet needs of pt providing 1706 kcal, 66g protein, 56g fat, and 241g carbohydrate. Formula at this regimen provides 1146ml fluid, recommend watwr flushes of 60ml with TF/meds to meet additional fluid needa of 786ml.
--- NOTE | 2020-06-15 09:51 | HMH.PULMPN ---
Internal Medicine - PN: Subj *Date: 06/15/20 *Time: 09:51 Interval history: Patient respiratory status slightly worsened from yesterday. Patient appears weak with decreased oral intake. Exam Vital signs and Labs for Last 24 Hours: Temp Pulse Resp BP Pulse Ox 97.7 F 101 H 24 146/85 H 95 06/15/20 08:00 06/15/20 08:00 06/15/20 08:00 06/15/20 08:00 06/15/20 08:00 Laboratory Results - last 24 hr 06/14/20 06:03: POC Glucose 186 H 06/14/20 09:35: Vancomycin Trough 11.9 H 06/14/20 09:35: WBC 16.4 H, RBC 4.51 L, Hgb 12.9 L, Hct 37.5 L, MCV 83.1, MCH 28.6, MCHC 34.5, RDW 13.8, Plt Count 295, MPV 8.0, Neut % (Auto) 94.0 H, Lymph % (Auto) 2.5 L, [place] % (Auto) 2.5, Eos % (Auto) 0.9, Baso % (Auto) 0.1, Neut # (Auto) 15.4 H, Lymph # (Auto) 0.4 L, [place] # (Auto) 0.4, Eos # (Auto) 0.2, Baso # (Auto) 0.0, Total Counted 100, Neutrophils % (Manual) 98 H, Lymphocytes % (Manual) 1 L, Monocytes % (Manual) 1 L, Platelet Estimate Normal, RBC Morphology Normal 06/14/20 11:13: POC Glucose 377 H* 06/14/20 16:12: POC Glucose 391 H* 06/15/20 07:08: Specimen Source R radial, O2 % 100, ABG pH 7.45, ABG pCO2 27.1 L, ABG pO2 60.0 L, ABG HCO3 18.5 L, ABG Total CO2 19.4 L, ABG O2 Saturation 91, ABG Base Excess -5.4 L, Luis Test Acceptable I & O for Last 24 hours: Intake & Output 06/12/20 06/13/20 06/14/20 06/15/20 23:59 23:59 23:59 23:59 Intake Total 1340 / 1540 580 / 580 1000 / 1110 170 / 170 Output Total 1400 / 1700 925 / 1075 625 / 625 180 / 180 Balance -60 / -160 -345 / -495 375 / 485 -10 / -10 Weight 155 lb 151 lb 9.6 oz 151 lb 9 oz 142 lb - Constitutional moderate distress - *Routine HEENT Exam Head: Present: normocephalic, atraumatic - *Routine Neck Exam Present: supple, full ROM. Absent: JVD, carotid bruit, lymphadenopathy - *Routine Respiratory Exam Present: distant breath sounds Comments: Bilateral coarse and decreased breath sounds - *Routine Cardiovascular Exam Present: Normal S1, Normal S2 - *Routine Abdominal Exam Present: soft. Absent: tenderness, distended, rebound - *Routine Extremities Exam Absent: cyanosis, clubbing, edema Assessment and Plan (1) COVID-19 virus infection Current visit: Yes Status: Acute Category: Medical Code(s): U07.1 - COVID-19 (2) Pneumonia Current visit: Yes Status: Acute Qualifiers: Pneumonia type: due to unspecified organism Laterality: bilateral Lung location: unspecified part of lung Qualified Code(s): J18.9 - Pneumonia, unspecified organism Category: Medical Code(s): J18.9 - Pneumonia, unspecified organism (3) Type 2 diabetes mellitus with neurological manifestations, controlled Current visit: Yes Status: Acute Category: Medical Code(s): E11.49 - Type 2 diabetes mellitus with other diabetic neurological complication (4) Long-term current use of insulin for diabetes mellitus Current visit: Yes Status: Acute Category: Medical Code(s): Z79.4 - nursing home (current) use of insulin; E11.9 - Type 2 diabetes mellitus without complications (5) OLIVIER (acute kidney injury) Current visit: Yes Status: Resolved Category: Medical Code(s): N17.9 - Acute kidney failure, unspecified (6) Sepsis Current visit: Yes Status: Resolved Qualifiers: Sepsis type: sepsis due to unspecified organism Sepsis acute organ dysfunction status: with acute organ dysfunction Severe sepsis acute organ dysfunction type: acute renal failure Acute renal failure type: unspecified Severe sepsis shock status: without septic shock Qualified Code(s): A41.9 - Sepsis, unspecified organism; R65.20 - Severe sepsis without septic shock; N17.9 - Acute kidney failure, unspecified Category: Medical Code(s): A41.9 - Sepsis, unspecified organism (7) Gram-positive bacteremia Current visit: Yes Status: Acute Category: Medical Code(s): R78.81 - Bacteremia (8) Essential hypertension Current visit: Yes Status: Acute Category: Medical Code
--- NOTE | 2020-06-15 10:29 | PC.NURSE ---
did call and speak with sharon in pulmonology that patient sats returning to 85-86% on the vapotherm. stated if needed to place patient back on the nonrebreather over top of the vapotherm. would let dr dorsey know. stated he would be in contact with dr. dnuham
--- NOTE | 2020-06-15 11:34 | PC.NURSE ---
Addendum entered by July Duron RN 06/15/20 11:42: patient now only sating 70s on vapotherm so nonrebreather replaced over the vapotherm. Original Note: patient has been tried with just nonrebreather it is noted that sats maintain 93-95%. however patient states he can not breathe with the mask on and began to refuse the nonrebreather. vapotherm placed back on patient and sats continued to stay in low 80s so nonrebreather replaced. sats are now maintaining mid 90s while laying on side and patient has taken nonrebreather off.. currently sating 95% while laying on side and on just vapotherm at 40l and 100% fio2. will continue to monitor and adjust as needed
--- NOTE | 2020-06-15 13:25 | XR_ITS ---
PROCEDURE: XR CHEST PORTABLE CLINICAL HISTORY: Post ETT placement Respiratory failure, pneumonia COMPARISON: CR XR CHEST PORTABLE from 06/06/2020 CR XR CHEST PORTABLE from 06/11/2020 CR XR CHEST PORTABLE from 06/15/2020 FINDINGS: Endotracheal tube has been placed. The tip is in good position 4 cm above the emilia at the T4-T5 level. The heart size is normal. There is bilateral pneumonia in both upper and lower lobes which appears worse. No obvious effusion. IMPRESSION: Endotracheal tube tip in good position with worsening bilateral pneumonia Dictated by: Luis Olivier MD 06/15/2020 16:37 Luis Olivier MD in OV 06/15/2020 16:37
--- NOTE | 2020-06-15 14:10 | HMH.PROC ---
[facility] Procedure Note Procedure Note:: 1320: Consulted to ICU due to respiratory failure related to Covid-19, O2 sat 90% on Hi-Rodo, RR 20s, HR 114, arousable, awake, labored breathin. Pt consented, education/risks discussed. Preoxygenated with assistance via Ambubag, Fentanyl 100 mcg, lidocaine 100mg, Propofol 150mg, Anectine 180mg, modified RSI. Mullen 2 blade, 8.0 ETT placed and secured at 22cm, CL score of 1, easy intubation, atraumatic, dentition unchanged. Breath sounds equal bilaterally, Positive ETCO2, ETT condensation, O2sat 80s, tachycardia noted, stable B/P, see vital signs. 1335: Rocuronium 50mg. Pt stable RTT x2 at bedside.
[2020-06-15 15:43] LABS: ABG Base Excess -11.8 mmol/L (-2.4-2.3); ABG HCO3 15.9 mmhg (22.0-26.0); ABG Oxygen Saturation 96 % (90-100); ABG PCO2 39.3 mmhg (35.0-45.0); ABG PH 7.22 mmol/L (7.35-7.45); ABG PO2 103.3 mmhg (80-100); ABG TCO2 17.1 mmhg (23-27)
[2020-06-15 15:44] LABS: Allen's Test ACCEPTABLE; Oxygen 100 %; PEEP 15; Source Right Radial; Tidal Volume 400; Vent Rate 20
--- NOTE | 2020-06-15 15:53 | XR_ITS ---
PROCEDURE: XR CHEST PORTABLE CLINICAL HISTORY: og tube placement COMPARISON: CR XR CHEST PORTABLE from 06/11/2020 CR XR CHEST PORTABLE from 06/15/2020 CR XR CHEST PORTABLE from 06/15/2020 FINDINGS: Nasogastric tube has been inserted. The tip is not visible on the film but below the GE junction. Endotracheal tube tip remains in good position 4 cm above the emilia. There remains diffuse bilateral alveolar disease consistent with pneumonia. IMPRESSION: Good position of endotracheal tube and nasogastric tube with diffuse bilateral pneumonia Dictated by: Luis Olivier MD 06/15/2020 17:15 Luis Olivier MD in [place] 06/15/2020 17:15
--- NOTE | 2020-06-15 15:58 | PC.NURSE ---
contacted market asset protection manager about tube feedings. stated it would be 237 ml jevity 1.2 q4h, but to start out slow the first couple of doses only give half
[2020-06-15 16:10] LABS: Lactic Acid 1.9 mmol/L (0.7-2.1)
[2020-06-15 16:12] LABS: Microscopic, Urine URINE MICROSCOPIC (MICROSCOPIC)
--- NOTE | 2020-06-15 16:13 | PC.NURSE ---
late entry. 1230-patient had long discussion with nursing staff and md about need for intubation. patient is agreeable to it at this time. he was given a phone so he could speak with family before proceeding. dr dunham states to use propofol for sedation after intubation, and to do an fio2 of 100%. 1315 anesthesia intubated patient, sedation administered by anesthesia. respiratory at bedside. 1335: bpin l arm 168/104. propofol titrated up since bp and heart rate up 1400- bp in r arm 142/90 rectal temp 99.8 1450 lubin placed, og placed and new iv placed. currently patient propofol set at 65mcg/g/min. patient heart rate noted to still be up but bp has started to come down some. will titrate down once patient is more comfortable, and vitals stable. will continue to monitor.
[2020-06-15 16:14] LABS: Appearance,Urine CLOUDY (Clear); Bilirubin,Urine Negative (Negative); Blood, Urine Negative (Negative); Color,Urine YELLOW (Yellow); Glucose,Urine (UA) 1+ (Negative); Ketones,Urine Negative (Negative); Leukocyte Esterase,Urine Negative (Negative); Nitrate,Urine Negative (Negative); PH,Urine 5.5 (5.0-8.5); Protein,Urine 1+ (Negative); Specific Gravity, Urine >= 1.030 (1.005-1.030); Urobilinogen,Urine 0.2 EU/dl (0.2)
--- NOTE | 2020-06-15 16:31 | PC.NURSE ---
removed isidro hose
[2020-06-15 16:42] LABS: Amorphous Sediment,Urine 2+ /lpf; Squamous Epithelial Cell,Urine Occasional #/hpf (0-5)
--- NOTE | 2020-06-15 17:20 | HMH.DCSUM ---
General - General Admission date:: 06/06/20 Discharge date: 06/17/20 HPI HPI: 69-year-old male with diabetes with peripheral neuropathy presented to the emergency department after being encouraged by family to seek care due to what was perceived as generalized weakness, I was laying around too much . Patient reports 2 weeks ago having a stomach virus but his symptoms were simply an abrupt and acute loss of appetite. He denies nausea or vomiting. He is unaware of fevers. He denies cough or shortness of breath. He presented to the emergency department and was found to be hypoxic with room air sats in the low 80s despite being conversant and pleasant. Patient responded to application of supplemental oxygen ultimately requiring nonrebreather to keep sats above 90%. Further evaluation revealed bilateral infiltrates as well as coronavirus antibody positive for both IgM and IgG. Patient also met sepsis criteria and was treated as such with a fluid bolus. He was found to have acute kidney injury with elevation of his creatinine and BUN. Patient was diagnosed with COVID 19 pneumonia with acute kidney injury and sepsis and admitted for further treatment. This morning despite continued use of the nonrebreather which is keeping his O2 sats at 96% patient continues to deny being short of breath. Hospital Course Hospital Course: Patient was admitted with COVID 19 pneumonia. For the first 48 hours of hospitalization patient was placed on a nonrebreather which kept his O2 sat in the mid to high 90s. Patient was started on dexamethasone 6 mg daily by mouth on the first day of hospitalization and this continued throughout the remainder of the patient's hospitalization. Remdesivir therapy also began on June 07. Patient was given Lovenox 40 mg daily for DVT prophylaxis. Patient was placed on supplements of vitamin C, vitamin D, zinc. Patient was also started on Rocephin and azithromycin to cover the possibility of community-acquired superimposed pneumonia. Patient was seen by Dr. Garcia of the pulmonology service who recommended the patient be transition to high flow nasal cannula (Vapotherm). Patient was started on Vapotherm at 40 L/min at 100% FiO2 with goal sats of greater than 92%. Patient continued to deny shortness of breath daily. Lung exam on admission was significant for bilateral rales that cleared within 4 days of initiation of therapy. Despite improvement in exam and patient's denial of shortness of breath significant oxygen requirement remained. White count has fluctuated as well. On June 11 repeat chest x-ray showed improvement in pneumonia in the right lung with persistence of pneumonia in the left lung. It was recommended patient begin prone breathing. Patient was somewhat resistant at first however on the patient met goals prone breathing. Almost immediate improvement in patient's oxygenation was noted while laying prone. Patient improved to the point that weaning of oxygen began with decreasing his FiO2. Patient's improvement or transient as by the morning of June 14 patient seemed to have declined. Follow O2 sats remained in the 90s patient was having more frequent desaturations into the 80s and it was taking longer for the patient to recover. Patient's lung exam remained unchanged. Labs revealed rising white blood cell count. Vancomycin was added to the patient's regimen. Repeat chest x-ray on June 15 showed worsening of the left-sided infiltrates. Worsening pneumonia was concerning for hospital-acquired pneumonia. Antibiotics were changed to cefepime and vancomycin. Pulmonology service recommended patient be intubated and paralyzed for prolonged episodes of prone ventilation. As we do not have these capabilities at this hospital patient was intubated and transfer was sought. Patient and the family requested transfer to [facility]. Patient as accepted on 06/[address] Adarsh Khan Patient had ac
--- NOTE | 2020-06-15 18:16 | PC.NURSE ---
SPOKE TO YELITZA AT [facility] ([facility]) AND SHE STATED THERE ARE NO BEDS AT THIS TIME. THEY WILL CALL BACK WHEN A BED BECOMES AVAILABLE
[2020-06-15 18:20] LABS: Basophils # 0.1 K/mm3 (0-0.2); Basophils % 0.3 % (0.1-2.0); Eosinophils # 0.1 K/mm3 (0.0-0.4); Eosinophils % 0.4 % (0.1-12.0); Hematocrit 38.3 % (42.0-52.0); Hemoglobin 12.7 g/dL (14.1-18.0); Lymphocytes # 0.5 K/mm3 (0.7-4.5); Lymphocytes % 2.1 % (10-50); Mean Corpuscular HGB Conc 33.2 g/dL (31.8-35.4); Mean Corpuscular Hemoglobin 28.7 pg (27.0-31.2); Mean Corpuscular Volume 86.4 fl (80-94); Mean Platelet Volume 7.9 fl (7.4-10.4); Monocytes # 0.7 K/mm3 (0.1-1.0); Monocytes % 2.9 % (1.7-9.3); Neutrophils # 23.7 K/mm3 (1.8-7.8); Neutrophils % 94.4 % (37.0-80.0); Platelet Count 413 K/mm3 (142-424); Red Blood Count 4.44 M/mm3 (4.60-6.20); Red Cell Distribution Width 14.2 % (11.5-17.5); White Blood Count 25.1 K/mm3 (4.8-10.8)
[2020-06-15 18:28] LABS: MANUAL DIFFERENTIAL MANUAL DIFFERENTIAL (MANUAL DIFF)
--- NOTE | 2020-06-15 18:36 | PC.NURSE ---
md wants patient to remain sedated and comfortable. md changed insulin back to medium intensity sliding scale q6h and dced the humalog 75/25. patient appears to be resting comfortably at this time. bp has tolerated the propofol at 55mcg/kg/min at this time. heart rate 113. purple area to tip of pinky toe on r foot. removed teds because of some swelling, and to give a break at this time. elevating as needed. turning and oral care provided. urine output has been minimal. will start tube feedings soon. lungs continue to have ronchi and wheezing and be diminished. vitals stable will continue to monitor.
[2020-06-15 18:44] LABS: Anion Gap 18.7 mEq/L (5-15); Blood Urea Nitrogen 54 mg/dl (9-20); Calcium 8.8 mg/dl (8.4-10.2); Carbon Dioxide 20 mmol/L (22.0-30.0); Chloride 102 mmol/L (98-107); Creatinine Clearance Estimated 44 mL/min (50-200); Estimated Glomerular Filt Rate 50 ml/min (>60); GFR (African American) 60 ML/MIN (>60); Potassium 5.7 mmoL/L (3.5-5.1); Sodium 135 mmol/L (136-145)
[2020-06-15 19:04] LABS: Glucose 419 mg/dl (74-100)
--- NOTE | 2020-06-15 19:18 | PC.NURSE ---
is already aware of elevated fsbs/glucose. new orders received. relayed this to jonna denton. insulin will be given once orders put in computer
[2020-06-15 19:30] LABS: Lymphocytes % 6 % (10-50); Monocytes % 3 % (2-9); Neutrophils % 91 % (42-76); Platelet Estimate Normal; RBC Morphology Normal; Total Cells Counted 100
--- NOTE | 2020-06-15 21:17 | PC.NURSE ---
He is intubated with a RASS score of -4 per pulmonary suggestion of RASS -3 to -4. HOB elevated 30 degrees. Vent settings AC, TV 40, R 20, PEEP 15, FiO2 80%. ETT is a 8.0 at 22 on the right side. He has a #16 OG that is at 58 at the lip on the right side. Frequent suctioning with clear secretions and some brownish tinged secretions orally. Clear secretions suctioned via ETT. Gag reflex is present. Respiratory paged over vent continuously alarming low paw. MD neon sign erector paged at 2050 r/t pt's BP decreasing (81/44) and urine output of 5mL in the past hour. Being given a one time 2-liter bolus of NS. Will further address BP if needed. BP @ 2114 is 89/65, HR 110. Oral care provided. Turned and repositioned. KITA. Urine in f/c is yellow, clear. He was given Jevity 1.2 bolus of 118mL the first time to determine his tolerance @ 2000. Zero residual prior to tube feeding and will check again at 2400. Tube placement verified with x-ray and auscultation. No BM thus far this shift. Continues in airborne and contact precautions.
--- NOTE | 2020-06-15 22:17 | PC.NURSE ---
Lissa from [facility] called at this time to inform that there are no beds available at this time. She stated that they will call around 0600 with another update.
--- NOTE | 2020-06-15 22:50 | PC.NURSE ---
Propofol weaned to 45mcg/kg/min at this time. He continues at a RASS score of -3.
--- NOTE | 2020-06-15 23:34 | PC.NURSE ---
He is diaphorectic. 2300 glucose 428 and given 15 units of humalog. Started on levophed at 8mcg/min. O2 increased to 100% on 80% FiO2; therefore, FiO2 decreased to 70% at this time and monitoring response. Currently at 100% but will continue to wean FiO2 depending on his tolerance. Current propofol rate is 40mcg/kg/min and he continues at a RASS score of -4. Will continue to wean to maintain suggested RASS score.
[2020-06-16] VITALS (42 sets, daily range): BP systolic 80–140; BP diastolic 52–92; PULSE 70–115; RESP 16–27; TEMP 36.4–37.5; O2SAT 93–100; BMI 25.3
--- NOTE | 2020-06-16 00:05 | PC.NURSE ---
Two bottom teeth are noted to be loose. Left side more loose than right.
--- NOTE | 2020-06-16 00:46 | PC.NURSE ---
Large mucous plug suctioned orally that was brown and red tinged. Levophed weaned to 6mcg/min at this time/
--- NOTE | 2020-06-16 04:26 | PC.NURSE ---
He has tolerated the tube feedings well thus far. 5mL of residual before 0400 bolus feeding. Continues to have poor urine output. Vent settings have remained that same t/o the night except for FiO2 that has been weaned to 60%. Bilateral feet have been elevated while lying spine. Slight movement of left arm noted occasionally when vent alarm sounds or when repositioned. Oral and ETT secretions have decreased in amount.
--- NOTE | 2020-06-16 05:00 | XR_ITS ---
PROCEDURE: XR CHEST PORTABLE CLINICAL HISTORY: Pt intubated. Respiratory failure, evaluate and tracheal tube and nasogastric tube COMPARISON: CR XR CHEST PORTABLE from 06/15/2020 CR XR CHEST PORTABLE from 06/15/2020 CR XR CHEST PORTABLE from 06/15/2020 FINDINGS: 5:31 a.m.. Endotracheal tube is present. The tip is in good position 4.3 cm above the emilia. Nasogastric tube is also present. The tip is in the region the body of the stomach. There is diffuse bilateral alveolar disease consistent with diffuse pneumonia which appears worse. IMPRESSION: Good position of endotracheal tube and nasogastric tube with some worsening in the diffuse bilateral pneumonia Dictated by: Luis Olivier MD 06/16/2020 06:36 Luis Olivier MD in [place] 06/16/2020 06:36
[2020-06-16 05:16] LABS: Chloride 105 mmol/L (98-107); Potassium 4.9 mmoL/L (3.5-5.1); Sodium 134 mmol/L (136-145)
[2020-06-16 05:18] LABS: Basophils % 0.2 % (0.1-2.0); Eosinophils % 0.1 % (0.1-12.0); Hematocrit 37.4 % (42.0-52.0); Hemoglobin 12.1 g/dL (14.1-18.0); Lymphocytes # 0.5 K/mm3 (0.7-4.5); Lymphocytes % 2.1 % (10-50); Mean Corpuscular HGB Conc 32.5 g/dL (31.8-35.4); Mean Corpuscular Hemoglobin 28.4 pg (27.0-31.2); Mean Corpuscular Volume 87.5 fl (80-94); Mean Platelet Volume 8.1 fl (7.4-10.4); Monocytes # 0.7 K/mm3 (0.1-1.0); Monocytes % 2.8 % (1.7-9.3); Neutrophils # 23.7 K/mm3 (1.8-7.8); Neutrophils % 94.7 % (37.0-80.0); Platelet Count 360 K/mm3 (142-424); Red Blood Count 4.27 M/mm3 (4.60-6.20); Red Cell Distribution Width 14.5 % (11.5-17.5)
[2020-06-16 05:19] LABS: Anion Gap 15.9 mEq/L (5-15); Blood Urea Nitrogen 65 mg/dl (9-20); Carbon Dioxide 18 mmol/L (22.0-30.0); Creatinine Clearance Estimated 31 mL/min (50-200); Estimated Glomerular Filt Rate 30 ml/min (>60); GFR (African American) 36 ML/MIN (>60)
[2020-06-16 05:20] LABS: Calcium 8.7 mg/dl (8.4-10.2)
[2020-06-16 05:23] LABS: Glucose 556 mg/dl (74-100)
[2020-06-16 05:25] LABS: MANUAL DIFFERENTIAL MANUAL DIFFERENTIAL (MANUAL DIFF)
[2020-06-16 05:55] LABS: Lymphocytes % 5 % (10-50); Neutrophils % 95 % (42-76); Total Cells Counted 100
[2020-06-16 05:56] LABS: Ovalocytes 1+; Platelet Estimate Normal
--- NOTE | 2020-06-16 06:04 | PC.NURSE ---
Attempting to wean off levophed at this time.
--- NOTE | 2020-06-16 06:07 | PC.NURSE ---
Lissa with [facility] called and stated there are no bed available at this time and that they would call and update again later.
[2020-06-16 07:13] LABS: ABG Base Excess -12.5 mmol/L (-2.4-2.3); ABG HCO3 16.2 mmhg (22.0-26.0); ABG Oxygen Saturation 96 % (90-100); ABG PCO2 46.9 mmhg (35.0-45.0); ABG PO2 88.5 mmhg (80-100); ABG TCO2 17.7 mmhg (23-27)
[2020-06-16 07:18] LABS: Allen's Test acceptable; Oxygen 60 %; PEEP 15; Tidal Volume 400; Vent Rate 20
[2020-06-16 07:20] LABS: ABG PH 7.16 mmol/L (7.35-7.45)
--- NOTE | 2020-06-16 07:53 | HMH.ACPN2 ---
Internal Medicine - PN: Subj *Date: 06/16/20 *Time: 07:53 Interval history: Patient remains intubated and heavily sedated with propofol. Overnight patient developed hypotension that required use of Levophed for blood pressure support for approximately 6 hours with subsequent return to normal blood pressures. Systolics are currently in the 110s to 120s. Patient has remained tachycardic with pulse between 100-120. Patient also developed poor urine output per nursing staff. OG remains in place for tube feeds. Nursing staff also reports [facility] contacted facility early this morning and there is still no bed available for transfer. Exam Vital signs and Labs for Last 24 Hours: Temp Pulse Resp BP Pulse Ox 98.2 F 114 H 21 116/71 96 06/16/20 06:30 06/16/20 06:59 06/16/20 06:51 06/16/20 06:59 06/16/20 06:59 Laboratory Results - last 24 hr 06/15/20 14:10: Specimen Source Right radial, O2 % 100, ABG pH 7.22 L*, ABG pCO2 39.3, ABG pO2 103.3 H, ABG HCO3 15.9 L, ABG Total CO2 17.1 L, ABG O2 Saturation 96, ABG Base Excess -11.8 L, Luis Test Acceptable, Vent Rate 20, Tidal Volume 400, PEEP 15 06/15/20 14:15: Urine Color Yellow, Urine Appearance Cloudy, Urine pH 5.5, Ur Specific [place] >= 1.030, Urine Protein 1+, Urine Glucose (UA) 1+, Urine Ketones Negative, Urine Blood Negative, Urine Nitrate Negative, Urine Bilirubin Negative, Urine Urobilinogen 0.2, Ur Leukocyte Esterase Negative, Urine RBC None, Urine WBC None, Ur Squamous Epith Cells Occasional, Amorphous Sediment 2+, Urine Bacteria None 06/15/20 15:50: Lactate 1.9 06/15/20 15:50: Sodium 135 L, Potassium 5.7 H D, Chloride 102, Carbon Dioxide 20 L, Anion Gap 18.7 H, BUN 54 H, Creatinine 1.40 H D, Estimated Creat Clear 44, Estimated GFR 50 L, Est GFR ( Amer) 60 D, Glucose 419 H*, Calcium 8.8 06/15/20 18:12: WBC 25.1 H* D, RBC 4.44 L, Hgb 12.7 L, Hct 38.3 L, MCV 86.4, MCH 28.7, MCHC 33.2, RDW 14.2, Plt Count 413 D, MPV 7.9, Neut % (Auto) 94.4 H, Lymph % (Auto) 2.1 L, [place] % (Auto) 2.9, Eos % (Auto) 0.4, Baso % (Auto) 0.3, Neut # (Auto) 23.7 H, Lymph # (Auto) 0.5 L, [place] # (Auto) 0.7, Eos # (Auto) 0.1, Baso # (Auto) 0.1, Total Counted 100, Neutrophils % (Manual) 91 H, Lymphocytes % (Manual) 6 L, Monocytes % (Manual) 3, Platelet Estimate Normal, RBC Morphology Normal 06/16/20 05:00: WBC 25.0 H*, RBC 4.27 L, Hgb 12.1 L, Hct 37.4 L, MCV 87.5, MCH 28.4, MCHC 32.5, RDW 14.5, Plt Count 360, MPV 8.1, Neut % (Auto) 94.7 H, Lymph % (Auto) 2.1 L, [place] % (Auto) 2.8, Eos % (Auto) 0.1, Baso % (Auto) 0.2, Neut # (Auto) 23.7 H, Lymph # (Auto) 0.5 L, [place] # (Auto) 0.7, Eos # (Auto) 0.0, Baso # (Auto) 0.0, Total Counted 100, Neutrophils % (Manual) 95 H, Lymphocytes % (Manual) 5 L, Platelet Estimate Normal, Ovalocytes 1+ 06/16/20 05:00: Sodium 134 L, Potassium 4.9, Chloride 105, Carbon Dioxide 18 L, Anion Gap 15.9 H, BUN 65 H, Creatinine 2.20 H D, Estimated Creat Clear 31, Estimated GFR 30 L, Est GFR ( Amer) 36 L D, Glucose 556 H* D, Calcium 8.7 06/16/20 06:00: Specimen Source r radial, O2 % 60, ABG pH 7.16 L*, ABG pCO2 46.9 H, ABG pO2 88.5, ABG HCO3 16.2 L, ABG Total CO2 17.7 L, ABG O2 Saturation 96, ABG Base Excess -12.5 L, Luis Test acceptable, Vent Rate 20, Tidal Volume 400, PEEP 15 I & O for Last 24 hours: Intake & Output 06/13/20 06/14/20 06/15/20 06/16/20 11:59 11:59 11:59 11:59 Intake Total 1190 / 1190 230 / 230 1170 / 1170 1644 / 1644 Output Total 875 / 875 775 / 775 605 / 605 455 / 455 Balance 315 / 315 -545 / -545 565 / 565 1189 / 1189 Weight 151 lb 9.6 oz 151 lb 9 oz 142 lb 157 lb 8 oz Microbiology Reports for the Last 24 Hours: Microbiology 06/15/20 13:50 Sputum - Expectorated Sputum Gram Stain - Final Narrative: Patient is sedated and breathing with the ventilator. Lungs overall sound clear. Heart has a regular rate and rhythm. Abdomen is soft with hypoactive bowel sounds. Lower extremities have no edema. Chest x-ray this morning shows worsening of bi
[2020-06-16 09:05] LABS: POC Glucose,Bedside 397 (70-110)
[2020-06-16 09:05] LABS: POC Glucose,Bedside 242 (70-110)
[2020-06-16 09:05] LABS: POC Glucose,Bedside 191 (70-110)
--- NOTE | 2020-06-16 09:43 | HMH.GSCON ---
*Admission Date: 06/06/20 *Reason for consult:: Central line placement *History of present illness: This is a 69-year-old gentleman with a diagnosis of COVID-19 and sepsis. The surgical service has been consulted for possible central line placement secondary to recent requirement of Levophed. He is currently off Levophed and is more stable . 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) Denies:: Cancer, Diabetes Mellitus Type 1, MRSA *Have you ever received a pneumonia vaccine?: Yes *Have you received a flu vaccine this season?: Yes Amputation: No - *Social History Smoking Status: Never smoker Alcohol Intake: never *Occupational Status:: retired Housing: house Household Members: none *Travel in the last 8 weeks: None Family Hx:: No significant family history Meds Home Medications Medication Instructions Recorded Confirmed Type Insulin Aspart Prot/Insuln Asp 20 unit SQ DAILY 06/06/20 06/07/20 History [Novolog Mix 70/30 Flexpen 100 Units/mL 3mL] Lisinopril/Hydrochlorothiazide 1 tab PO DAILY 06/06/20 06/06/20 History [Lisinopril-Hctz 10-12.5 mg Tab] Metformin HCl [Metformin 1000mg 1,000 mg PO BID 06/06/20 06/06/20 History Tablets] Pravastatin Sodium [Pravachol 20mg 20 mg PO HS 06/06/20 06/06/20 History Tablet] Gabapentin [Neurontin 600mg 600 mg PO TID 06/07/20 06/07/20 History tablet] Insulin Aspart Prot/Insuln Asp 30 units SQ HS 06/07/20 06/07/20 History [Novolog Mix 70/30 Flexpen 100 Units/mL 3mL] Allergies Allergy/AdvReac Type Severity Reaction Status Date / Time No Known Allergies Allergy Verified 06/06/20 21:23 Exam Vital signs and Labs for Last 24 Hours: Temp Pulse Resp BP Pulse Ox 98.2 F 114 H 21 116/71 96 06/16/20 06:30 06/16/20 06:59 06/16/20 06:51 06/16/20 06:59 06/16/20 06:59 Laboratory Results - last 24 hr 06/15/20 05:15: POC Glucose 191 H 06/15/20 11:27: POC Glucose 242 H 06/15/20 14:10: Specimen Source Right radial, O2 % 100, ABG pH 7.22 L*, ABG pCO2 39.3, ABG pO2 103.3 H, ABG HCO3 15.9 L, ABG Total CO2 17.1 L, ABG O2 Saturation 96, ABG Base Excess -11.8 L, Luis Test Acceptable, Vent Rate 20, Tidal Volume 400, PEEP 15 06/15/20 14:15: Urine Color Yellow, Urine Appearance Cloudy, Urine pH 5.5, Ur Specific [place] >= 1.030, Urine Protein 1+, Urine Glucose (UA) 1+, Urine Ketones Negative, Urine Blood Negative, Urine Nitrate Negative, Urine Bilirubin Negative, Urine Urobilinogen 0.2, Ur Leukocyte Esterase Negative, Urine RBC None, Urine WBC None, Ur Squamous Epith Cells Occasional, Amorphous Sediment 2+, Urine Bacteria None 06/15/20 15:50: Lactate 1.9 06/15/20 15:50: Sodium 135 L, Potassium 5.7 H D, Chloride 102, Carbon Dioxide 20 L, Anion Gap 18.7 H, BUN 54 H, Creatinine 1.40 H D, Estimated Creat Clear 44, Estimated GFR 50 L, Est GFR ( Amer) 60 D, Glucose 419 H*, Calcium 8.8 06/15/20 16:52: POC Glucose 397 H* 06/15/20 18:12: WBC 25.1 H* D, RBC 4.44 L, Hgb 12.7 L, Hct 38.3 L, MCV 86.4, MCH 28.7, MCHC 33.2, RDW 14.2, Plt Count 413 D, MPV 7.9, Neut % (Auto) 94.4 H, Lymph % (Auto) 2.1 L, [place] % (Auto) 2.9, Eos % (Auto) 0.4, Baso % (Auto) 0.3, Neut # (Auto) 23.7 H, Lymph # (Auto) 0.5 L, [place] # (Auto) 0.7, Eos # (Auto) 0.1, Baso # (Auto) 0.1, Total Counted 100, Neutrophils % (Manual) 91 H, Lymphocytes % (Manual) 6 L, Monocytes % (Manual) 3, Platelet Estimate Normal, RBC Morphology Normal 06/16/20 05:00: WBC 25.0 H*, RBC 4.27 L, Hgb 12.1 L, Hct 37.4 L, MCV 87.5, MCH 28.4, MCHC 32.5, RDW 14.5, Plt Count 360, MPV 8.1, Neut % (Auto) 94.7 H, Lymph % (Auto) 2.1 L, [place] % (Auto) 2.8, Eos % (Auto) 0.1, Baso % (Auto) 0.2, Neut # (Auto) 23.7 H, Lymph # (Auto) 0.5 L, [place] # (Auto) 0.7, Eos # (Auto) 0.0, Baso # (Auto) 0.0, Total Counted 100, Neutrophils % (Manual) 95 H, Lymphocytes % (Manual) 5 L
--- NOTE | 2020-06-16 10:08 | CA_ITS ---
APPROVED REPORT EXAM: Comprehensive 2D, Doppler, and color-flow Echocardiogram Rn Flight: Corry Fernando CRT Ht: 5 ft 6 in Wt: 157lbs BSA: 1.80 BP: 99/62 mmHg Indications: Covid 19 +, septic, pneumonia, hypoxia, DM Hypertension I10 All images obtained from subcostal view. pt intubated on vent. M-Mode Dimensions RVDd 3.21 cm (0.9-2.6) LVDd 4.35 cm (3.5-5.7) LVDs 3.25 cm (3.5-5.7) IVSd 1.33 cm (0.6-1.1) PWd 0.84 cm (0.6-1.1) EF (Teich) 50.20% FS 25.30% EDV (Teich) 85.40 mL ESV (Teich) 42.50 mL Left Ventricle Technically very difficult study because of the patient factors and poor acoustic windows. Left ventricle is probably normal size with preserved left ventricular systolic function, study is suboptimal for assessment of segmental wall motion abnormality. Right Ventricle Right-sided chambers are grossly appear to be mildly enlarged, contractility of the right ventricle appears to be normal. Aortic Valve Aortic valve is not visualized Mitral Valve Mitral valve is not well visualized Tricuspid Valve Tricuspid valve is not well visualized Pulmonic Valve Pulmonic valve is not well visualized Great Vessels Aortic root is not seen Pericardium No significant pericardial effusion noted Conclusion 1. Technically difficult study as described above, probably preserved left ventricular systolic function 2. No significant pericardial effusion noted. Electronically signed by : José Antonio Messina, 06/17/2020 15:38:46
--- NOTE | 2020-06-16 10:36 | DIET.NUTRFU ---
Good toleration TF so far. Hyperglycemia persists, related to meds, insulin changes have been made. Recommend continuing slow increase in feedings as tolerated. Pt now intubated, propofol infusion provides 502kcal. This brings pt's caloric total still within range for energy needs in stress. Will monitor infusion rate as well as tolerance and TF intake to adjust as indicated.
--- NOTE | 2020-06-16 10:49 | HMH.PULMPN ---
Internal Medicine - PN: Subj *Date: 06/16/20 *Time: 10:49 Interval history: No acute events overnight. Patient was started on pressors overnight for hypotension however resolved and patient is off levo fed this morning. Exam Vital signs and Labs for Last 24 Hours: Temp Pulse Resp BP Pulse Ox 98.2 F 110 H 21 116/71 96 06/16/20 06:30 06/16/20 08:00 06/16/20 06:51 06/16/20 06:59 06/16/20 06:59 Laboratory Results - last 24 hr 06/15/20 05:15: POC Glucose 191 H 06/15/20 11:27: POC Glucose 242 H 06/15/20 14:10: Specimen Source Right radial, O2 % 100, ABG pH 7.22 L*, ABG pCO2 39.3, ABG pO2 103.3 H, ABG HCO3 15.9 L, ABG Total CO2 17.1 L, ABG O2 Saturation 96, ABG Base Excess -11.8 L, Luis Test Acceptable, Vent Rate 20, Tidal Volume 400, PEEP 15 06/15/20 14:15: Urine Color Yellow, Urine Appearance Cloudy, Urine pH 5.5, Ur Specific [place] >= 1.030, Urine Protein 1+, Urine Glucose (UA) 1+, Urine Ketones Negative, Urine Blood Negative, Urine Nitrate Negative, Urine Bilirubin Negative, Urine Urobilinogen 0.2, Ur Leukocyte Esterase Negative, Urine RBC None, Urine WBC None, Ur Squamous Epith Cells Occasional, Amorphous Sediment 2+, Urine Bacteria None 06/15/20 15:50: Lactate 1.9 06/15/20 15:50: Sodium 135 L, Potassium 5.7 H D, Chloride 102, Carbon Dioxide 20 L, Anion Gap 18.7 H, BUN 54 H, Creatinine 1.40 H D, Estimated Creat Clear 44, Estimated GFR 50 L, Est GFR ( Amer) 60 D, Glucose 419 H*, Calcium 8.8 06/15/20 16:52: POC Glucose 397 H* 06/15/20 18:12: WBC 25.1 H* D, RBC 4.44 L, Hgb 12.7 L, Hct 38.3 L, MCV 86.4, MCH 28.7, MCHC 33.2, RDW 14.2, Plt Count 413 D, MPV 7.9, Neut % (Auto) 94.4 H, Lymph % (Auto) 2.1 L, [place] % (Auto) 2.9, Eos % (Auto) 0.4, Baso % (Auto) 0.3, Neut # (Auto) 23.7 H, Lymph # (Auto) 0.5 L, [place] # (Auto) 0.7, Eos # (Auto) 0.1, Baso # (Auto) 0.1, Total Counted 100, Neutrophils % (Manual) 91 H, Lymphocytes % (Manual) 6 L, Monocytes % (Manual) 3, Platelet Estimate Normal, RBC Morphology Normal 06/16/20 05:00: WBC 25.0 H*, RBC 4.27 L, Hgb 12.1 L, Hct 37.4 L, MCV 87.5, MCH 28.4, MCHC 32.5, RDW 14.5, Plt Count 360, MPV 8.1, Neut % (Auto) 94.7 H, Lymph % (Auto) 2.1 L, [place] % (Auto) 2.8, Eos % (Auto) 0.1, Baso % (Auto) 0.2, Neut # (Auto) 23.7 H, Lymph # (Auto) 0.5 L, Curry # (Auto) 0.7, Eos # (Auto) 0.0, Baso # (Auto) 0.0, Total Counted 100, Neutrophils % (Manual) 95 H, Lymphocytes % (Manual) 5 L, Platelet Estimate Normal, Ovalocytes 1+ 06/16/20 05:00: Sodium 134 L, Potassium 4.9, Chloride 105, Carbon Dioxide 18 L, Anion Gap 15.9 H, BUN 65 H, Creatinine 2.20 H D, Estimated Creat Clear 31, Estimated GFR 30 L, Est GFR ( Amer) 36 L D, Glucose 556 H* D, Calcium 8.7 06/16/20 05:00: Vancomycin Trough 22.0 H 06/16/20 06:00: Specimen Source r radial, O2 % 60, ABG pH 7.16 L*, ABG pCO2 46.9 H, ABG pO2 88.5, ABG HCO3 16.2 L, ABG Total CO2 17.7 L, ABG O2 Saturation 96, ABG Base Excess -12.5 L, Luis Test acceptable, Vent Rate 20, Tidal Volume 400, PEEP 15 I & O for Last 24 hours: Intake & Output 06/13/20 06/14/20 06/15/20 06/16/20 23:59 23:59 23:59 23:59 Intake Total 580 / 580 1000 / 1110 1609 / 1639 512 / 512 Output Total 925 / 1075 625 / 625 735 / 740 113 / 113 Balance -345 / -495 375 / 485 874 / 899 399 / 399 Weight 151 lb 9.6 oz 151 lb 9 oz 142 lb 157 lb 8 oz Microbiology Reports for the Last 24 Hours: Microbiology 06/15/20 13:50 Sputum - Expectorated Sputum Gram Stain - Final - *Routine HEENT Exam Head: Present: normocephalic, atraumatic - *Routine Neck Exam Present: supple, full ROM. Absent: JVD, lymphadenopathy, thyromegaly - *Routine Respiratory Exam Present: patient mechanically ventilated, rhonchi - *Routine Cardiovascular Exam Present: Normal S1, Normal S2 - *Routine Abdominal Exam Present: soft, normoactive bowel sounds, distended. Absent: tenderness, rebound, guarding - *Routine Extremities Exam Absent: cyanosis, clubbing, edema, palpable cord Assessment and Plan (1) COVID-19 virus in
--- NOTE | 2020-06-16 11:25 | HMH.ACPN ---
Internal Medicine - PN: Subj *Date: 06/16/20 *Time: 11:25 Exam Vital signs and Labs for Last 24 Hours: Temp Pulse Resp BP Pulse Ox 98.3 F 105 H 24 95/61 L 95 06/16/20 11:00 06/16/20 11:00 06/16/20 11:00 06/16/20 11:00 06/16/20 11:00 Laboratory Results - last 24 hr 06/15/20 05:15: POC Glucose 191 H 06/15/20 11:27: POC Glucose 242 H 06/15/20 14:10: Specimen Source Right radial, O2 % 100, ABG pH 7.22 L*, ABG pCO2 39.3, ABG pO2 103.3 H, ABG HCO3 15.9 L, ABG Total CO2 17.1 L, ABG O2 Saturation 96, ABG Base Excess -11.8 L, Luis Test Acceptable, Vent Rate 20, Tidal Volume 400, PEEP 15 06/15/20 14:15: Urine Color Yellow, Urine Appearance Cloudy, Urine pH 5.5, Ur Specific [place] >= 1.030, Urine Protein 1+, Urine Glucose (UA) 1+, Urine Ketones Negative, Urine Blood Negative, Urine Nitrate Negative, Urine Bilirubin Negative, Urine Urobilinogen 0.2, Ur Leukocyte Esterase Negative, Urine RBC None, Urine WBC None, Ur Squamous Epith Cells Occasional, Amorphous Sediment 2+, Urine Bacteria None 06/15/20 15:50: Lactate 1.9 06/15/20 15:50: Sodium 135 L, Potassium 5.7 H D, Chloride 102, Carbon Dioxide 20 L, Anion Gap 18.7 H, BUN 54 H, Creatinine 1.40 H D, Estimated Creat Clear 44, Estimated GFR 50 L, Est GFR ( Amer) 60 D, Glucose 419 H*, Calcium 8.8 06/15/20 16:52: POC Glucose 397 H* 06/15/20 18:12: WBC 25.1 H* D, RBC 4.44 L, Hgb 12.7 L, Hct 38.3 L, MCV 86.4, MCH 28.7, MCHC 33.2, RDW 14.2, Plt Count 413 D, MPV 7.9, Neut % (Auto) 94.4 H, Lymph % (Auto) 2.1 L, [place] % (Auto) 2.9, Eos % (Auto) 0.4, Baso % (Auto) 0.3, Neut # (Auto) 23.7 H, Lymph # (Auto) 0.5 L, [place] # (Auto) 0.7, Eos # (Auto) 0.1, Baso # (Auto) 0.1, Total Counted 100, Neutrophils % (Manual) 91 H, Lymphocytes % (Manual) 6 L, Monocytes % (Manual) 3, Platelet Estimate Normal, RBC Morphology Normal 06/16/20 05:00: WBC 25.0 H*, RBC 4.27 L, Hgb 12.1 L, Hct 37.4 L, MCV 87.5, MCH 28.4, MCHC 32.5, RDW 14.5, Plt Count 360, MPV 8.1, Neut % (Auto) 94.7 H, Lymph % (Auto) 2.1 L, [place] % (Auto) 2.8, Eos % (Auto) 0.1, Baso % (Auto) 0.2, Neut # (Auto) 23.7 H, Lymph # (Auto) 0.5 L, [place] # (Auto) 0.7, Eos # (Auto) 0.0, Baso # (Auto) 0.0, Total Counted 100, Neutrophils % (Manual) 95 H, Lymphocytes % (Manual) 5 L, Platelet Estimate Normal, Ovalocytes 1+ 06/16/20 05:00: Sodium 134 L, Potassium 4.9, Chloride 105, Carbon Dioxide 18 L, Anion Gap 15.9 H, BUN 65 H, Creatinine 2.20 H D, Estimated Creat Clear 31, Estimated GFR 30 L, Est GFR ( Amer) 36 L D, Glucose 556 H* D, Calcium 8.7 06/16/20 05:00: Vancomycin Trough 22.0 H 06/16/20 06:00: Specimen Source r radial, O2 % 60, ABG pH 7.16 L*, ABG pCO2 46.9 H, ABG pO2 88.5, ABG HCO3 16.2 L, ABG Total CO2 17.7 L, ABG O2 Saturation 96, ABG Base Excess -12.5 L, Luis Test acceptable, Vent Rate 20, Tidal Volume 400, PEEP 15 I & O for Last 24 hours: Intake & Output 06/13/20 06/14/20 06/15/20/16/20 23:59 23:59 23:59 23:59 Intake Total 580 / 580 1000 / 1110 1609 / 1639 756 / 756 Output Total 925 / 1075 625 / 625 735 / 740 113 / 113 Balance -345 / -495 375 / 485 874 / 899 643 / 643 Weight 68.765 kg 68.748 kg 64.41 kg 71.441 kg Microbiology Reports for the Last 24 Hours: Microbiology 06/15/20 13:50 Sputum - Expectorated Sputum Gram Stain - Final Assessment and Plan (1) COVID-19 virus infection Current visit: Yes Status: Acute Category: Medical Code(s): U07.1 - COVID-19 (2) Pneumonia Current visit: Yes Status: Acute Qualifiers: Pneumonia type: due to unspecified organism Laterality: bilateral Lung location: unspecified part of lung Qualified Code(s): J18.9 - Pneumonia, unspecified organism Category: Medical Code(s): J18.9 - Pneumonia, unspecified organism (3) Type 2 diabetes mellitus with neurological manifestations, controlled Current visit: Yes Status: Acute Category: Medical Code(s): E11.49 - Type 2 diabetes mellitus with other diabetic neurological complication (4) Long-term current use of insuli
--- NOTE | 2020-06-16 12:06 | XR_ITS ---
PROCEDURE: XR CHEST PORTABLE CLINICAL HISTORY: central line placed COMPARISON: CR XR CHEST PORTABLE from 06/15/2020 CR XR CHEST PORTABLE from 06/15/2020 CR XR CHEST PORTABLE from 06/16/2020 FINDINGS: Left subclavian central venous line is present. The tip is in the region of the SVC. There is a left-sided pneumothorax with extensive subcutaneous air noted in the neck bilaterally. The left pneumothorax apical pleural distance is approximately 9 mm. Endotracheal tube is present. The tip is 3 cm above the emilia. Nasogastric tube is present with the tip in the region of the body of the stomach. There is some air density noted in the left paratracheal region and adjacent to the aortic knob which may be related to pneumomediastinum. There is diffuse bilateral pneumonia not significantly changed. IMPRESSION: 1. Good position of endotracheal tube nasogastric tube and subclavian central venous line. 2. New small left apical pneumothorax with diffuse subcutaneous emphysema. 3. Possible pneumomediastinum. Dictated by: Luis Olivier MD 06/16/2020 14:25 Luis Olivier MD in [facility] 06/16/2020 14:25
--- NOTE | 2020-06-16 12:09 | PC.NURSE ---
Spoke with Radiology jian and made her aware of stat cxr.
--- NOTE | 2020-06-16 12:19 | HMH.OPNOTE ---
Date of procedure: 06/16/20 Pre-op Diagnosis:: Sepsis COVID-19 with respiratory failure Post-op Diagnosis:: Same Procedure performed:: Placement of left subclavian vein triple-lumen catheter (central line) Surgeon:: London Valentino MD Anesthesia: none Estimated blood loss (mL): 5 Operative findings:: Subcutaneous emphysema along upper chest/neck bilaterally prior to placement of triple-lumen catheter. All 3 ports flushed without difficulty. Operative note:: After informed consent was obtained the patient was maintained in a supine position. He was intubated/sedated in the intensive care unit. Physical examination revealed bilateral neck/upper chest subcutaneous emphysema. His left chest and neck were prepped and draped in a sterile fashion. Infiltration with local anesthetic was not completed secondary to desire to avoid increased soft tissue swelling which would likely create increased difficulty in venous access. A large-bore needle was utilized to access the left subclavian vein. Venous return was easily noted. The guidewire was placed in position. A small stab incision at the guidewire exit site was completed with scalpel. Utilizing a Seldinger technique the triple-lumen catheter was placed in position and anchored at 17 cm. All 3 ports flushed without difficulty. Sterile dressings were applied. Chest x-ray is pending. Condition: critical Disposition: no change Specimens:: None Complications:: No immediate.
--- NOTE | 2020-06-16 12:23 | PC.NURSE ---
1223 - t Anthony notified that bedside glucose was greater than 500, stat glucose ordered. New orders of 30units of humalog and 20 of lantus
[2020-06-16 12:44] LABS: POC Glucose,Bedside 577 (70-110)
[2020-06-16 13:19] LABS: Anion Gap 17.3 mEq/L (5-15); Blood Urea Nitrogen 71 mg/dl (9-20); Calcium 8.2 mg/dl (8.4-10.2); Carbon Dioxide 19 mmol/L (22.0-30.0); Chloride 102 mmol/L (98-107); Creatinine Clearance Estimated 29 mL/min (50-200); Estimated Glomerular Filt Rate 27 ml/min (>60); GFR (African American) 32 ML/MIN (>60); Potassium 5.3 mmoL/L (3.5-5.1); Sodium 133 mmol/L (136-145)
[2020-06-16 13:20] LABS: Alanine Aminotransferase 16 U/L (12-78); Albumin Level 2.4 g/dl (3.5-5.0); Alkaline Phosphatase 66 U/L (38-126); Aspartate Amino Transferase 35 U/L (17-59); Bilirubin,Direct 0.5 mg/dl (0.0-0.4); Bilirubin,Total 0.5 mg/dl (0.2-1.3); Bilirubin,Unconjugated 0.1 mg/dL (0.0-1.1); Magnesium 2.2 mg/dl (1.6-2.3); Phosphorous 6.1 mg/dl (2.5-4.5); Total Protein,Serum 5.7 g/dl (6.3-8.2); Triglycerides 283 mg/dl (30-150)
[2020-06-16 13:25] LABS: Lactic Acid 2.3 mmol/L (0.7-2.1)
[2020-06-16 13:26] LABS: Creatinine,Urine Random 97 mg/dL (Not Estab.); Urea Nitrogen,Urine Random 243 mg/dl (Not Estab.)
[2020-06-16 13:29] LABS: Glucose 570 mg/dl (74-100)
[2020-06-16 14:28] LABS: Glucose,Random 579 mg/dL (74-100)
--- NOTE | 2020-06-16 15:13 | XR_ITS ---
PROCEDURE: XR CHEST PORTABLE CLINICAL HISTORY: chest tube Follow-up chest tube placement COMPARISON: CR XR CHEST PORTABLE from 06/15/2020 CR XR CHEST PORTABLE from 06/16/2020 CR XR CHEST PORTABLE from 06/16/2020 FINDINGS: 1538 hours. Endotracheal tube is in good position 6 cm above the emilia. Nasogastric tube tip is not visible on the film but is below the diaphragm. Left subclavian central venous line is present with the tip in the region the SVC. Left chest tube has been inserted. There is a persistent left apical pneumothorax overall not significantly changed approximately 9 mm in with. There is diffuse bilateral subcutaneous emphysema which appears worse. Lucency is noted in the lower lung zones bilaterally and may be related to bibasilar pneumothoraces versus atypical appearance of subcutaneous emphysema. IMPRESSION: Interval insertion of left-sided chest tube with diffuse subcutaneous emphysema and left apical pneumothorax. Endotracheal tube nasogastric tube and central venous line are in good position. Lucencies have developed in the lung bases on both sides and could be related to basilar pneumothoraces or unusual appearance of subcutaneous emphysema. Consider chest CT for more thorough evaluation. Dictated by: Luis Olivier MD 06/16/2020 15:49 Luis Olivier MD in [facility] 06/16/2020 15:49
--- NOTE | 2020-06-16 15:31 | HMH.OPNOTE ---
Date of procedure: 06/16/20 Pre-op Diagnosis:: Small left apical pneumothorax Significant subcutaneous emphysema (subcutaneous emphysema noted prior to placement of triple-lumen catheter) Post-op Diagnosis:: Same Procedure performed:: Left thoracostomy tube placement (26 [place]) Surgeon:: London Valentino MD Anesthesia: local Estimated blood loss (mL): 5 Operative findings:: 28 [place] thoracostomy tube anchored at 15 cm Operative note:: After informed consent was obtained the patient was maintained in a supine position. The left chest was prepped and draped in a sterile fashion. After infiltration of local anesthetic an incision was made along the anterior axillary line below the seventh interspace. The deep subcutaneous tissue was dissected bluntly up and over the adjacent rib margin. The 26 [place] thoracostomy tube was then placed in position and secured at 15 cm with 0 silk suture. The chest tube was secured to the Pleur-evac. Dressings were applied. Chest x-ray is pending. Condition: critical Disposition: no change Specimens:: None Complications:: No immediate
--- NOTE | 2020-06-16 15:47 | PC.NURSE ---
late entry: 1329 notified by lab of critical glucose of 570. primary rn and aware. pt medicated per orders from
--- NOTE | 2020-06-16 15:49 | PC.NURSE ---
Late entry:1427 critical glucose of 579. primary rn notified. md aware of glucose levels
--- NOTE | 2020-06-16 16:20 | PC.NURSE ---
1620 - Glucose of [address] Cruz, 40 units of humalog ordered
--- NOTE | 2020-06-16 16:58 | CT_ITS ---
PROCEDURE: CT CHEST WO CON CLINICAL INDICATION: Pneumediastinum, covid pneumonia, diffuse subcutaneous emphysema, respiratory failure, COMPARISON: No exams were available for comparison TECHNIQUE: Axial images obtained with sagittal and coronal reformats. All CT scans at the facility use one or more dose reduction, viz: automated exposure control, ma/kV adjustment per patient size (including targeted exams where dose is matched to indication, i.e. head), or iterative reconstruction technique. FINDINGS: There is an endotracheal tube present. The tip is 2.5 cm above the emilia. Nasogastric tube is present with tip in the region of the body of the stomach. Left central venous line noted with tip in the region of the left brachiocephalic vein. Left-sided chest tube is noted along the lateral chest wall. There is extensive subcutaneous emphysema throughout the neck and chest extending down to the diaphragm with some air transecting into the peritoneal cavity within the upper abdomen. There is a small left-sided pneumothorax. There is extensive pneumomediastinum. There is diffuse bilateral ground-glass opacification of the lungs with more extensive consolidation in the lower lobes. No effusion or abscess. Degenerative changes are present within the thoracic spine. The liver has an irregular appearance with mild prominence of the left hepatic lobe consistent with cirrhosis. There is a small amount of perihepatic fluid. Cholelithiasis noted. IMPRESSION: 1. Extensive pneumomediastinum and subcutaneous emphysema. The subcutaneous emphysema extends into the upper abdomen and peritoneal cavity. There is a small left-sided pneumothorax with left-sided chest tube in place. 2. Diffuse ground-glass opacification of the lungs with more extensive consolidation in the lower lobes in keeping with patient's history of Covid 19 pneumonia 3. Left chest tube, endotracheal tube, nasogastric tube, and left subclavian central venous line in place. 4. Cirrhosis with cholelithiasis Dictated by: Luis Olivier MD 06/17/2020 06:15 Luis Olivier MD in [facility] 06/17/2020 06:15
[2020-06-16 17:08] LABS: Reflex Lactic Add Lactic Reflex
[2020-06-16 18:14] LABS: Lactic Acid Follow Up (RFLX 1) 2.1 mmol/L (0.7-2.1)
[2020-06-16 18:19] LABS: POC Glucose,Bedside 495 (70-110)
--- NOTE | 2020-06-16 19:10 | PC.NURSE ---
Pt has tolerated tube feedings this shift residuals were 5mls at checks. 1600 tube feeding held pending CT approval from family. Pt was transported to ct with assistance from house, respiratory, radiology and myself at approx 1830. Pt tolerated fair. B/P has been low during ct scan and upon arrival back to the room @ 1910. Pt is now a DNR. Status obtained by phone via verbal instruction from JOSELYN Camacho and verified with David Cao, RN and myself. All consents obtained via this method for all interventions this shift. A central line and chest tube were placed this shift by Dr Valentino, see interventions. Both verified by xray. Pt has crepitus in the chest and neck, Radha Xavier and Chicho aware. It was first noticed before central line was placed when DR Valentino was at bedside assessing pt. It has progressively gotten worse throughout the day. Alexander is to bedside and very slowly draining clear magnus colored urine. Pt has had less than 30 mls of urine out all day, Dr Cruz notified and Radha aware. Notified Dr Cruz that pts BP was low at approx 1430, he said to start levophed to keep map >65. Pt's BP rebounded but at shift change map is currently in the low 60's. Will start levophed if it doesn't rebound. Pt has been afebrile this shift. ET tube switchedn from rt side to left side at 1230 today, pt tolerated withouyt incident. Report given to oncoming nurse.
--- NOTE | 2020-06-16 19:38 | PC.NURSE ---
cpot score of 0 on all assessments
--- NOTE | 2020-06-16 19:47 | PC.NURSE ---
Per Mayte Higgins, Family can visit one at a time but they must wear full PPE. A couple family members may wait in the waiting room to take turns
[2020-06-16 19:58] LABS: Reflex Lactic (2 hrs) Add Lactic Reflex
[2020-06-16 20:29] LABS: POC Glucose,Bedside 338 (70-110)
[2020-06-16 20:29] LABS: POC Glucose,Bedside 428 (70-110)
[2020-06-16 20:29] LABS: POC Glucose,Bedside 515 (70-110)
[2020-06-16 20:57] LABS: Lactic Acid Follow up (RFLX 2) 2.1 mmol/L (0.7-2.1)
[2020-06-17] VITALS (25 sets, daily range): BP systolic 92–125; BP diastolic 47–71; PULSE 100–120; RESP 19–29; TEMP 36.5–37.9; O2SAT 95–100; BMI 25.3
--- NOTE | 2020-06-17 01:02 | PC.NURSE ---
RT decreased PEEP to %. Pt did not tolerate this change. RR increased and LAP decreased. RT increased PEEP to 8. Pt tolerating this change well at this time.
--- NOTE | 2020-06-17 01:44 | PC.NURSE ---
He continues in contact and airborne precautions. During the initial assessment he was noted to have crepitus across his chest and edema on the left side of his neck. Since then the crepitus has increased to right arm and on the right side of his neck. call or contact centre coach MD was paged and informed of recent changes in vent settings and change to suction since CT and of increasing crepitus. He ordered for the PEEP to be decreased to 5. The patient did not tolerate it well; therefore, respiratory increased PEEP to 8 and he is tolerating well. Edema has increased on the right side of his neck. Generalized edema noted. Continues with poor urine output. Urine in f/c is yellow, clear. CPOT score is 1. He is receiving Jevity 1.2mL q 4 hours via OG. Residual checked before each feeding. Last residual @ 2400 was 30mL. HOB elevated to 30 degrees. Being turned and repositioned q 2 hours. Oral care and suctioning q 2 hours. Chest tube has 40 of suction. Vent settings are currently AC mode, R 24, TV 400, PEEP 8, FiO2 100%. 8.0 ETT is on the left side @ 22 @ the lip. Levophed is currently at 8mcg/min which has been unchanged since it was restarted at 1930 and propofol is at 55mcg/kg/min which is unchanged since previous shift. Sinus tach on telemetry.
[2020-06-17 04:05] LABS: POC Glucose,Bedside 404 (70-110)
[2020-06-17 04:05] LABS: POC Glucose,Bedside 394 (70-110)
[2020-06-17 04:05] LABS: POC Glucose,Bedside 453 (70-110)
--- NOTE | 2020-06-17 05:00 | XR_ITS ---
PROCEDURE: XR CHEST PORTABLE CLINICAL HISTORY: Pt intubated. Respiratory failure. Follow-up pneumothorax COMPARISON: CT CT CHEST WO CON from 06/16/2020 CR XR CHEST PORTABLE from 06/16/2020 CR XR CHEST PORTABLE from 06/16/2020 CR XR CHEST PORTABLE from 06/16/2020 FINDINGS: There is diffuse subcutaneous emphysema bilaterally along the neck and chest wall.. Endotracheal tube is present with the tip 3.7 cm above the emilia. Left subclavian central venous line remains in place. Nasogastric tube tip is not visible on the film but below the GE junction. Left chest tube remains in place with a small left apical pneumothorax noted. There is diffuse bilateral alveolar opacification consistent with pneumonia which may be slightly worse on the left. Vertical linear densities noted in the paramediastinal region consistent with pneumomediastinum Previously noted lucencies in the lung bases are somewhat less apparent but are persistent. IMPRESSION: Tubes and lines are in good position. Persistent diffuse subcutaneous emphysema with left-sided pneumothorax and pneumomediastinum Bilateral pneumonia which may be slightly worse on the left. Dictated by: Luis Olivier MD 06/17/2020 06:00 Luis Olivier MD in [facility] 06/17/2020 06:00
--- NOTE | 2020-06-17 05:55 | PC.NURSE ---
Amelie from [facility] called; no bed available at this time.
[2020-06-17 06:01] LABS: Basophils # 0.1 K/mm3 (0-0.2); Basophils % 0.3 % (0.1-2.0); Eosinophils # 0.1 K/mm3 (0.0-0.4); Eosinophils % 0.5 % (0.1-12.0); Hematocrit 31.9 % (42.0-52.0); Hemoglobin 10.6 g/dL (14.1-18.0); Lymphocytes # 0.5 K/mm3 (0.7-4.5); Lymphocytes % 2.6 % (10-50); Mean Corpuscular HGB Conc 33.3 g/dL (31.8-35.4); Mean Corpuscular Hemoglobin 28.8 pg (27.0-31.2); Mean Corpuscular Volume 86.4 fl (80-94); Mean Platelet Volume 8.3 fl (7.4-10.4); Monocytes # 0.5 K/mm3 (0.1-1.0); Monocytes % 2.6 % (1.7-9.3); Neutrophils # 18.2 K/mm3 (1.8-7.8); Neutrophils % 93.9 % (37.0-80.0); Platelet Count 220 K/mm3 (142-424); Red Blood Count 3.69 M/mm3 (4.60-6.20); Red Cell Distribution Width 14.6 % (11.5-17.5); White Blood Count 19.3 K/mm3 (4.8-10.8)
[2020-06-17 06:03] LABS: Alanine Aminotransferase 15 U/L (12-78); Albumin Level 2.3 g/dl (3.5-5.0); Albumin/Globulin Ratio 0.7 (1.1-1.8); Alkaline Phosphatase 85 U/L (38-126); Anion Gap 18.9 mEq/L (5-15); Aspartate Amino Transferase 27 U/L (17-59); Bilirubin,Total 0.3 mg/dl (0.2-1.3); Blood Urea Nitrogen 75 mg/dl (9-20); Calcium 8.3 mg/dl (8.4-10.2); Carbon Dioxide 16 mmol/L (22.0-30.0); Chloride 105 mmol/L (98-107); Creatinine Clearance Estimated 20 mL/min (50-200); Estimated Glomerular Filt Rate 18 ml/min (>60); GFR (African American) 22 ML/MIN (>60); Globulin 3.5 g/dL (1.3-3.2); Potassium 4.9 mmoL/L (3.5-5.1); Sodium 135 mmol/L (136-145); Total Protein,Serum 5.8 g/dl (6.3-8.2)
[2020-06-17 06:09] LABS: MANUAL DIFFERENTIAL MANUAL DIFFERENTIAL (MANUAL DIFF)
[2020-06-17 06:47] LABS: Glucose 413 mg/dl (74-100)
--- NOTE | 2020-06-17 07:11 | HMH.ACPN2 ---
Internal Medicine - PN: Subj *Date: 06/17/20 *Time: 07:11 Interval history: Patient remains heavily sedated and intubated this morning. Yesterday at the time of central line placement the surgeon noted palpable crepitus in the left shoulder and neck area consistent with subcutaneous emphysema raising concern for pneumothorax. Central line proceeded and was uneventful. Post procedure chest film showed a small apical pneumothorax. Patient then had chest tube inserted into the left side for his apical pneumothorax, which was also an uncomplicated procedure. Repeat chest films raise concerned about pneumomediastinum. Decision was made to proceed with a CT scan of the chest as family did wish for further interventions with chest tubes if needed. Family however has also made the decision to avoid further aggressive measures should he acutely decline such as CPR and ACLS meds. Because of the pneumothorax and pneumomediastinum ventilator adjustments were made with decrease in PEEP which is currently set at 8. Patient has not had any acute events overnight. Nursing staff reports extension of subcutaneous crepitus into the right arm. Nursing staff also reports Davida Goodman contacted the facility this morning and there are still no beds available. Exam Vital signs and Labs for Last 24 Hours: Temp Pulse Resp BP Pulse Ox 97.7 F 111 H 24 121/71 99 06/17/20 06:00 06/17/20 06:00 06/17/20 06:00 06/17/20 06:00 06/17/20 06:00 Laboratory Results - last 24 hr 06/14/20 21:41: POC Glucose 338 H* 06/15/20 05:15: POC Glucose 191 H 06/15/20 11:27: POC Glucose 242 H 06/15/20 16:52: POC Glucose 397 H* 06/15/20 23:01: POC Glucose 428 H* 06/16/20 04:55: POC Glucose 515 H* 06/16/20 05:00: Vancomycin Trough 22.0 H 06/16/20 06:00: Specimen Source r radial, O2 % 60, ABG pH 7.16 L*, ABG pCO2 46.9 H, ABG pO2 88.5, ABG HCO3 16.2 L, ABG Total CO2 17.7 L, ABG O2 Saturation 96, ABG Base Excess -12.5 L, Luis Test acceptable, Vent Rate 20, Tidal Volume 400, PEEP 15 06/16/20 12:00: Sodium 133 L, Potassium 5.3 H, Chloride 102, Carbon Dioxide 19 L, Anion Gap 17.3 H, BUN 71 H, Creatinine 2.40 H, Estimated Creat Clear 29, Estimated GFR 27 L, Est GFR ( Amer) 32 L, Glucose 570 H*, Calcium 8.2 L 06/16/20 12:00: Phosphorus 6.1 H, Magnesium 2.2, Total Bilirubin 0.5, Direct Bilirubin 0.5 H, Conjugated Bilirubin 0.0, Indirect Bilirubin 0.0, Unconjugated Bilirubin 0.1, AST 35, ALT 16, Alkaline Phosphatase 66, Total Protein 5.7 L, Albumin 2.4 L, Triglycerides 283 H 06/16/20 12:00: Lactate 2.3 H 06/16/20 12:05: Ur Random Urea Nitrogn 243, Urine Creatinine 97 06/16/20 12:17: POC Glucose 577 H* 06/16/20 13:00: Random Glucose 579 H* 06/16/20 16:14: POC Glucose 495 H* 06/16/20 17:40: Lactate 2.1 06/16/20 20:19: Lactate 2.1 06/16/20 20:27: POC Glucose 394 H* 06/17/20 00:14: POC Glucose 453 H* 06/17/20 03:52: POC Glucose 404 H* 06/17/20 05:43: WBC 19.3 H, RBC 3.69 L, Hgb 10.6 L, Hct 31.9 L, MCV 86.4, MCH 28.8, MCHC 33.3, RDW 14.6, Plt Count 220 D, MPV 8.3, Neut % (Auto) 93.9 H, Lymph % (Auto) 2.6 L, [place] % (Auto) 2.6, Eos % (Auto) 0.5, Baso % (Auto) 0.3, Neut # (Auto) 18.2 H, Lymph # (Auto) 0.5 L, [place] # (Auto) 0.5, Eos # (Auto) 0.1, Baso # (Auto) 0.1 06/17/20 05:43: Sodium 135 L, Potassium 4.9, Chloride 105, Carbon Dioxide 16 L, Anion Gap 18.9 H, BUN 75 H, Creatinine 3.40 H D, Estimated Creat Clear 20, Estimated GFR 18 L*, Est GFR ( Amer) 22 L D, Glucose 413 H* D, Calcium 8.3 L, Total Bilirubin 0.3, AST 27, ALT 15, Alkaline Phosphatase 85, Total Protein 5.8 L, Albumin 2.3 L, Globulin 3.5 H, Albumin/Globulin Ratio 0.7 L I & O for Last 24 hours: Intake & Output 06/14/20 06/15/20 06/16/20 06/17/20 11:59 11:59 11:59 11:59 Intake Total 230 / 230 1170 / 1170 2195 / 2339 2157 / 2157 Output Total 775 / 775 605 / 605 468 / 468 60 / 60 Balance -545 / -545 565 / 565 1727 / 1871 2096 / 2096 Weight 151 lb 9 oz 142 lb 157 lb 8 oz 157 lb 8.007 oz Microbiology Reports
[2020-06-17 07:13] LABS: ABG Base Excess -15.5 mmol/L (-2.4-2.3); ABG HCO3 13.1 mmhg (22.0-26.0); ABG Oxygen Saturation 98 % (90-100); ABG PCO2 36.8 mmhg (35.0-45.0); ABG TCO2 14.2 mmhg (23-27)
--- NOTE | 2020-06-17 07:13 | SW/DCPLANNER ---
PATIENT REMAINS IN THE ICU ON THE VENTILATOR WITH COVID 19...HIS BROTHER, ALEXX CALLED ME AND HAD SPOKE WITH PATIENT PRIOR TO HIM BEING ON THE VENTILATOR TO DO A POA SO HIS BROTHER COULD PAY HIS BILLS... PATIENT WAS ALERT AND ORIENTED AT THAT TIME TO HAVE A CLEAR UNDERSTANDING.. PATIENT IS AND BROTHER LIVES CLOSE BY AND HAS BEEN AVAILABLE TO ASSIST WITH HIS NEEDS.. PRIOR TO COMING INTO THE HOSPITAL, PATIENT WAS INDEPENDENT WITH ALL OF HIS CARE NEEDS... IT APPEARS HIS HEALTH HAS DECLINED AND IS ON A TRANSFER LIST.. WILL BE AVAILABLE TO ASSIST WITH ANY NEEDS PATIENT OR HIS FAMILY MAY HAVE AT THIS TIME... DUE TO PATIENT HAVING ACTIVE COVID, FAMILY HAS NOT BEEN IN TO VISIT BUT CHECKS ON HIM VIA PHONE..
[2020-06-17 07:14] LABS: Oxygen 100 %; Tidal Volume 400
[2020-06-17 07:15] LABS: Allen's Test ACCEPTABLE; PEEP 8; Source R RADIAL; Vent Rate 24
[2020-06-17 07:16] LABS: ABG PH 7.17 mmol/L (7.35-7.45)
--- NOTE | 2020-06-17 08:05 | PC.NURSE ---
RT obtained plateau pressure (16.8), will continue to monitor
--- NOTE | 2020-06-17 08:20 | PC.NURSE ---
current cpot 0. will hold morning tube feed at this time until positive answer on any procedures for this morning.
[2020-06-17 08:22] LABS: Lymphocytes % 5 % (10-50); Monocytes % 2 % (2-9); Neutrophils % 91 % (42-76); Total Cells Counted 100
[2020-06-17 08:23] LABS: Platelet Estimate Normal; RBC Morphology Normal
[2020-06-17 08:35] LABS: Vancomycin,Trough 30.5 ug/mL (5.0-10.0)
[2020-06-17 08:56] LABS: Lactic Acid 1.9 mmol/L (0.7-2.1)
--- NOTE | 2020-06-17 09:50 | HMH.PHACONS ---
- Pharmacy Consult Date: 06/17/20 Time: 09:51 Referring provider: DR. RAMIREZ Reason for Consult:: VANCOMYCIN LEVEL Allergies and ADEs:: Allergies Allergy/AdvReac Type Severity Reaction Status Date / Time No Known Allergies Allergy Verified 06/06/20 21:23 Home Medications:: Home Medications Medication Instructions Recorded Confirmed Type Insulin Aspart Prot/Insuln Asp 20 unit SQ DAILY 06/06/20 06/07/20 History [Novolog Mix 70/30 Flexpen 100 Units/mL 3mL] Lisinopril/Hydrochlorothiazide 1 tab PO DAILY 06/06/20 06/06/20 History [Lisinopril-Hctz 10-12.5 mg Tab] Metformin HCl [Metformin 1000mg 1,000 mg PO BID 06/06/20 06/06/20 History Tablets] Pravastatin Sodium [Pravachol 20mg 20 mg PO HS 06/06/20 06/06/20 History Tablet] Gabapentin [Neurontin 600mg 600 mg PO TID 06/07/20 06/07/20 History tablet] Insulin Aspart Prot/Insuln Asp 30 units SQ HS 06/07/20 06/07/20 History [Novolog Mix 70/30 Flexpen 100 Units/mL 3mL] Height: 1.68 m Weight: 71.441 kg Laboratory Results:: Laboratory Results - last 24 hr 06/14/20 21:41: POC Glucose 338 H* 06/15/20 23:01: POC Glucose 428 H* 06/16/20 04:55: POC Glucose 515 H* 06/16/20 05:00: Vancomycin Trough 22.0 H 06/16/20 12:00: Sodium 133 L, Potassium 5.3 H, Chloride 102, Carbon Dioxide 19 L, Anion Gap 17.3 H, BUN 71 H, Creatinine 2.40 H, Estimated Creat Clear 29, Estimated GFR 27 L, Est GFR ( Amer) 32 L, Glucose 570 H*, Calcium 8.2 L 06/16/20 12:00: Phosphorus 6.1 H, Magnesium 2.2, Total Bilirubin 0.5, Direct Bilirubin 0.5 H, Conjugated Bilirubin 0.0, Indirect Bilirubin 0.0, Unconjugated Bilirubin 0.1, AST 35, ALT 16, Alkaline Phosphatase 66, Total Protein 5.7 L, Albumin 2.4 L, Triglycerides 283 H 06/16/20 12:00: Lactate 2.3 H 06/16/20 12:05: Ur Random Urea Nitrogn 243, Urine Creatinine 97 06/16/20 12:17: POC Glucose 577 H* 06/16/20 13:00: Random Glucose 579 H* 06/16/20 16:14: POC Glucose 495 H* 06/16/20 17:40: Lactate 2.1 06/16/20 20:19: Lactate 2.1 06/16/20 20:27: POC Glucose 394 H* 06/17/20 00:14: POC Glucose 453 H* 06/17/20 03:52: POC Glucose 404 H* 06/17/20 05:43: WBC 19.3 H, RBC 3.69 L, Hgb 10.6 L, Hct 31.9 L, MCV 86.4, MCH 28.8, MCHC 33.3, RDW 14.6, Plt Count 220 D, MPV 8.3, Neut % (Auto) 93.9 H, Lymph % (Auto) 2.6 L, [place] % (Auto) 2.6, Eos % (Auto) 0.5, Baso % (Auto) 0.3, Neut # (Auto) 18.2 H, Lymph # (Auto) 0.5 L, [place] # (Auto) 0.5, Eos # (Auto) 0.1, Baso # (Auto) 0.1, Total Counted 100, Neutrophils % (Manual) 91 H, Band Neutrophils % 2.0, Lymphocytes % (Manual) 5 L, Monocytes % (Manual) 2, Platelet Estimate Normal, RBC Morphology Normal 06/17/20 05:43: Sodium 135 L, Potassium 4.9, Chloride 105, Carbon Dioxide 16 L, Anion Gap 18.9 H, BUN 75 H, Creatinine 3.40 H D, Estimated Creat Clear 20, Estimated GFR 18 L*, Est GFR ( Amer) 22 L D, Glucose 413 H* D, Calcium 8.3 L, Total Bilirubin 0.3, AST 27, ALT 15, Alkaline Phosphatase 85, Total Protein 5.8 L, Albumin 2.3 L, Globulin 3.5 H, Albumin/Globulin Ratio 0.7 L 06/17/20 07:09: Specimen Source R radial, O2 % 100, ABG pH 7.17 L*, ABG pCO2 36.8, ABG pO2 126.0 H, ABG HCO3 13.1 L, ABG Total CO2 14.2 L, ABG O2 Saturation 98, ABG Base Excess -15.5 L, Luis Test Acceptable, Vent Rate 24, Tidal Volume 400, PEEP 8 06/17/20 07:48: Vancomycin Trough 30.5 H 06/17/20 08:30: Lactate 1.9 Medical History: Reports:: 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
--- NOTE | 2020-06-17 10:20 | PC.NURSE ---
Addendum entered by July Duron RN 06/17/20 15:14: tube feedings given at 1000 Original Note: 1000 patient propofol decreased to 40mcg/kg/min. patient started on insulin gtt at 2units.hr. levophed decreased to 6mcg. lr bolus started per md order. only 1 liter to be given. will continue to monitor cpot score and need for opiates
--- NOTE | 2020-06-17 10:55 | HMH.PULMPN ---
Internal Medicine - PN: Subj *Date: 06/17/20 *Time: 10:55 Interval history: No acute events overnight after the second chest tube was placed patient PEEP decreased to 8. Nursing noted worsening subcutaneous air and crepitus. Exam Vital signs and Labs for Last 24 Hours: Temp Pulse Resp BP Pulse Ox 99.6 F 112 H 25 H 119/63 100 06/17/20 07:00 06/17/20 07:00 06/17/20 07:00 06/17/20 07:00 06/17/20 08:05 Laboratory Results - last 24 hr 06/14/20 21:41: POC Glucose 338 H* 06/15/20 23:01: POC Glucose 428 H* 06/16/20 04:55: POC Glucose 515 H* 06/16/20 12:00: Sodium 133 L, Potassium 5.3 H, Chloride 102, Carbon Dioxide 19 L, Anion Gap 17.3 H, BUN 71 H, Creatinine 2.40 H, Estimated Creat Clear 29, Estimated GFR 27 L, Est GFR ( Amer) 32 L, Glucose 570 H*, Calcium 8.2 L 06/16/20 12:00: Phosphorus 6.1 H, Magnesium 2.2, Total Bilirubin 0.5, Direct Bilirubin 0.5 H, Conjugated Bilirubin 0.0, Indirect Bilirubin 0.0, Unconjugated Bilirubin 0.1, AST 35, ALT 16, Alkaline Phosphatase 66, Total Protein 5.7 L, Albumin 2.4 L, Triglycerides 283 H 06/16/20 12:00: Lactate 2.3 H 06/16/20 12:05: Ur Random Urea Nitrogn 243, Urine Creatinine 97 06/16/20 12:17: POC Glucose 577 H* 06/16/20 13:00: Random Glucose 579 H* 06/16/20 16:14: POC Glucose 495 H* 06/16/20 17:40: Lactate 2.1 06/16/20 20:19: Lactate 2.1 06/16/20 20:27: POC Glucose 394 H* 06/17/20 00:14: POC Glucose 453 H* 06/17/20 03:52: POC Glucose 404 H* 06/17/20 05:43: WBC 19.3 H, RBC 3.69 L, Hgb 10.6 L, Hct 31.9 L, MCV 86.4, MCH 28.8, MCHC 33.3, RDW 14.6, Plt Count 220 D, MPV 8.3, Neut % (Auto) 93.9 H, Lymph % (Auto) 2.6 L, [place] % (Auto) 2.6, Eos % (Auto) 0.5, Baso % (Auto) 0.3, Neut # (Auto) 18.2 H, Lymph # (Auto) 0.5 L, [place] # (Auto) 0.5, Eos # (Auto) 0.1, Baso # (Auto) 0.1, Total Counted 100, Neutrophils % (Manual) 91 H, Band Neutrophils % 2.0, Lymphocytes % (Manual) 5 L, Monocytes % (Manual) 2, Platelet Estimate Normal, RBC Morphology Normal 06/17/20 05:43: Sodium 135 L, Potassium 4.9, Chloride 105, Carbon Dioxide 16 L, Anion Gap 18.9 H, BUN 75 H, Creatinine 3.40 H D, Estimated Creat Clear 20, Estimated GFR 18 L*, Est GFR ( Amer) 22 L D, Glucose 413 H* D, Calcium 8.3 L, Total Bilirubin 0.3, AST 27, ALT 15, Alkaline Phosphatase 85, Total Protein 5.8 L, Albumin 2.3 L, Globulin 3.5 H, Albumin/Globulin Ratio 0.7 L 06/17/20 07:09: Specimen Source R radial, O2 % 100, ABG pH 7.17 L*, ABG pCO2 36.8, ABG pO2 126.0 H, ABG HCO3 13.1 L, ABG Total CO2 14.2 L, ABG O2 Saturation 98, ABG Base Excess -15.5 L, Luis Test Acceptable, Vent Rate 24, Tidal Volume 400, PEEP 8 06/17/20 07:48: Vancomycin Trough 30.5 H 06/17/20 08:30: Lactate 1.9 I & O for Last 24 hours: Intake & Output 06/14/20 06/15/20 06/16/20 06/17/20 23:59 23:59 23:59 23:59 Intake Total 1000 / 1110 1609 / 1639 2889 / 2925 775 / 775 Output Total 625 / 625 735 / 740 130 / 138 96 / 96 Balance 375 / 485 874 / 899 2759 / 2787 679 / 679 Weight 151 lb 9 oz 142 lb 157 lb 8 oz 157 lb 8.007 oz Microbiology Reports for the Last 24 Hours: Microbiology 06/15/20 13:50 Sputum - Expectorated Sputum Gram Stain - Final 06/15/20 13:50 Sputum - Expectorated Sputum Sputum Culture - Preliminary Radiology Reports for the Last 24 Hours: CT scan performed yesterday reviewed showed bilateral diffuse groundglass opacities consistent with COVID-19 infection along with this patient also noted to have tiny left apical pneumothorax along with extensive subcutaneous air and pneumomediastinum. - Constitutional severe distress - *Routine Neck Exam Present: swelling, trachea midline. Absent: lymphadenopathy Comments: Neck swelling with crepitus noted - Routine Chest/Breast/Axilla Exam Chest wall: Present: chest tube Comments: Diffuse swelling of the chest wall consistent subcutaneous air and crepitus noted is also extending into his abdominal wall - *Routine Respiratory Exam Present: patient mechanically ventilated, rhonchi - *R
--- NOTE | 2020-06-17 11:03 | PC.NURSE ---
decreased levophed to 4mcg
--- NOTE | 2020-06-17 11:19 | PC.NURSE ---
following parameters from md/orders in computer patient fsbs was 291 so increased to 4 units/hr
--- NOTE | 2020-06-17 11:23 | PC.NURSE ---
RT placed end tidal on pt=35
--- NOTE | 2020-06-17 11:50 | PC.NURSE ---
gave report to marcia denton at [facility]
--- NOTE | 2020-06-17 12:09 | PC.NURSE ---
fsba 321 swo increased drip to five units. levophed drip increased to 6mcg/kg/min. map has been less than 65
--- NOTE | 2020-06-17 12:53 | PC.NURSE ---
called [facility] at this time awaiting call back
--- NOTE | 2020-06-17 12:58 | PC.NURSE ---
[facility] [place] accepted transfer stated they would call when air bound
--- NOTE | 2020-06-17 14:40 | PC.NURSE ---
at 1200 levo was increased to 8mcg. insulin decreased to 3units at 1300 [facility] arrived at 1330. [facility] left at 1415. patient remained in stable condition at that time.
--- NOTE | 2020-06-17 15:19 | PC.NURSE ---
sent watch, phone, wallet, die repairer forging with [facility]
[2020-06-17 18:50] LABS: POC Glucose,Bedside 282 (70-110)
[2020-06-17 18:50] LABS: POC Glucose,Bedside 389 (70-110)
[2020-06-17 18:50] LABS: POC Glucose,Bedside 291 (70-110)
[2020-06-17 18:50] LABS: POC Glucose,Bedside 321 (70-110)
[2020-06-17 18:50] LABS: POC Glucose,Bedside 242 (70-110)
[2020-06-19 18:15] LABS: Sodium, Urine 37 mmol/L (Not Estab.)
== END 2020-06-17 14:20 | disposition short-term general hospital (02) | DRG 208 ==
LOC: ER 22:58 → 2ND 23:35 → ICU 06-07 13:29
PROVIDERS: Internal Medicine Pulmonary Disease; Admitting Provider Family Medicine; Emergency Provider Emergency Medicine; PCP Family Medicine; Visit Provider Family Medicine
DX: U07.1 COVID-19 (principal); J12.89 Other viral pneumonia; J96.01 Acute respiratory failure with hypoxia; R65.20 Severe sepsis without septic shock; E87.2 Acidosis; N17.9 Acute kidney failure, unspecified; J93.83 Other pneumothorax; E11.49 Type 2 diabetes mellitus with other diabetic neurological complication; J98.2 Interstitial emphysema; Z79.4 Long term (current) use of insulin; Z79.899 Other long term (current) drug therapy
CPT/HCPCS: 31500; 94002; 32551; 36556; 36415; 71045; 71250; 80048; 80053; 80076; 80202; 81001; 82009; 82570; 82803; 82947; 82962; 83605; 83735; 84100; 84300; 84478; 84540; 85007; 85025; 86328; 87040; 87070; 87077; 87081; 87186; 87205; 87486; 87507; 87581; 87633; 87798; 93005; 93306; 93308; 94003; 94640; 94760; 94761; 96366; 96374; 99285; C1751; J0330; J0456; J1956; J2704; J3370; U0003; U0004